=== PATIENT | male | born 1940 | race Caucasian/White ===

== ENCOUNTER 2016-04-30 22:24 | Observation (INO) | payer OTHER ==
[~2016-04-30] VITALS: Ht 193 cm; Wt 126.3 kg
[~2016-04-30 22:24] MED LIST: ALLO300T80 PO; AMOX1TAB43 PO; ASPI325T45 PO; DICL1GEL28 TOP; FURO40TA3 PO; LISI40TA PO; LORA1TAB13 PO; MAGN200T3 PO; OMEP20CA9 PO; OXYC1TAB3 PO; POLY1POW2 PO; POTA10TA30 PO; SOTA80TA PO
[2016-04-30] MEDS ORDERED: SODIUM CHLORIDE 0.9% 1000ML 1,000 ML IV ONE (22:45)
[2016-04-30 22:54] LABS: BASO % 0.7 %; BASO ABS # 0.06 K/uL (0-0.2); COMPLETE YES; EOS % 2.5 %; HEMATOCRIT 48.8 % (42-52); IG% 0.2 %; LYMPH ABS # 1.37 K/uL (1.2-3.4); MEAN CELL VOLUME 81.9 fL (80-100); MEAN CORPUSCULAR HGB CONC 34.2 g/dl (32-36); MEAN PLATELET VOLUME 9.3 fL (7.4-10.4); MONO % 11.2 %; NEUT % 68.4 %; PLATELET COUNT 239 K/uL (130-400); RED BLOOD COUNT 5.96 M/uL (4.7-6.1); WHITE BLOOD COUNT 8.06 K/uL (4.8-10.8)
[2016-04-30 23:06] LABS: ALT/SGPT 19 U/L (12-78); AST/SGOT 18 U/L (15-37); BLOOD UREA NITROGEN 14 mg/dl (7-18); BUN/CREATININE RATIO 12.6 (10-20); CALCIUM 8.5 mg/dl (8.5-10.1); CHLORIDE 104 mmol/L (98-107)
[2016-04-30 23:07] LABS: CARBON DIOXIDE 28 mmol/L (21-32); GLUCOSE 109 mg/dl (70-99); POTASSIUM 4.7 mmol/L (3.5-5.1); SODIUM 143 mmol/L (136-145)
--- NOTE | 2016-04-30 23:09 | DIAGNOSTIC IMAGING REPORT ---
SINGLE VIEW CHEST CLINICAL HISTORY: Atypical chest pain. FINDINGS: An AP, portable, upright chest radiograph is compared to study dated 02/07/2013. The examination is degraded by portable technique and patient rotation. A 2-lead cardiac AICD is unchanged in position and partially secures the left lower chest. The heart is enlarged and there is atherosclerotic calcification of the thoracic aorta. There is pulmonary vascular congestion. Small pleural effusions are suspected. No pneumothorax is seen. The skeletal structures are osteopenic. The bony thorax is grossly intact. Advanced arthritic change is noted in the left shoulder. IMPRESSION: 1. Cardiomegaly and AICD with evidence of congestive failure. 2. Small pleural effusions. Electronically signed by: Ervin Aguilar M.D. 04/30/2016 11:07 PM
[2016-04-30 23:40] LABS: ALB/GLOB RATIO 1.1 (0.9-2); ALKALINE PHOSPHATASE 133 U/L (45-117); CKMB/CK RATIO 1.7 (0-3.0)
[2016-04-30 23:42] LABS: MAGNESIUM 2.3 mg/dl (1.8-2.4)
[2016-04-30] MEDS ORDERED: METOPROLOL TARTRATE 1 MG/ML VIAL IV STA (23:57)
[2016-05-01] VITALS (11 sets, daily range): BP systolic 115–151; BP diastolic 66–89; PULSE 61–75; TEMP 36.7–37.4; O2SAT 93–97; Ht 193 cm; Wt 126.3 kg
[2016-05-01 00:40] LABS: LYME DISEASE AB IGG POS (NEG)
[2016-05-01 00:42] LABS: LYME DISEASE AB IGM NEG (NEG)
[2016-05-01 01:43] LABS: PARTIAL THROMBOPLASTIN RATIO 1.1
[2016-05-01] MEDS ORDERED: SOTALOL HCL 80 MG TAB PO STA (01:56)
[2016-05-01] MEDS ORDERED: HYDROmorphone INJ 1 MG/ML SYR IV PRN (02:00)
[2016-05-01] MEDS ORDERED: PROMETHAZINE HCL INJ 12.5 MG in SODIUM CHLORIDE 0.9% 50ML 50 ML IV PRN (02:00)
[2016-05-01] MEDS ORDERED: ASPIRIN 325 MG ECTAB PO PRN (02:00)
[2016-05-01] MEDS ORDERED: NITROGLYCERIN 0.4 MG SL PER TAB CHARGE SL PRN (02:00)
[2016-05-01] MEDS ORDERED: OXYCODONE HCL IR 5 MG TAB (IMMEDIATE RELEASE) PO PRN (02:00)
[2016-05-01] MEDS ORDERED: ACETAMINOPHEN 325 MG TAB PO PRN (02:00)
[2016-05-01] MEDS ORDERED: FUROSEMIDE INJ 20 MG in SYRINGE 0 ML IV STA (02:37)
--- NOTE | 2016-05-01 03:44 | EMERGENCY ROOM VISIT NOTE ---
History First contact with patient: 22:27 Chief Complaint: CARDIAC ASSESSMENT Stated Complaint: ICD DISCHARGE Nursing Triage Summary: Patient states he was at home sitting on edge of bed and his defibrillator shocked 4 times in 30 min. Denies chest pain and SOB. History of Present Illness The patient is a 76 year old male who presents to the Emergency Room with complaints of multiple episodes of defibrillator discharge over the past one hour. The patient states that he had four distinct episodes of defibrillation at home. The patient does report having a mild strange sensation in his jaw just prior to the defibrillation. He was seated at his table reading a book at the time of the events. The patient arrives via ambulance where he had at least 2 runs of 9 beats nonsustained V. tach. The patient does not report recent illness. He is without chest pain or shortness of breath. He typically follows with [facility] cardiology in [place] (Dr Villareal), and will have occasional defibrillation at home. He has not had an event in a few months, and does not recall having this many episodes in a short period. Review of Systems More than 10 systems were reviewed and otherwise negative with the exception of history of present illness. Past Medical/Surgical History Medical Problems: (1) Acute urinary tract infection (2) AICD (automatic cardioverter/defibrillator) present (3) Anxiety (4) BPH (benign prostatic hypertrophy) (5) Dyslipidemia (6) GERD (gastroesophageal reflux disease) (7) Gout (8) HTN (hypertension) (9) ICD (implantable cardioverter-defibrillator) discharge (10) Idiopathic cardiomyopathy (11) Nonobstructive coronary atherosclerosis (12) PVT (paroxysmal ventricular tachycardia) (13) Sepsis (14) Sleep apnea Surgical Problems: (1) H/o CT guided needle biopsy (2) History of implantable cardioverter-defibrillator (ICD) placement (3) S/P appendectomy (4) S/p EGD (5) S/P laparoscopic cholecystectomy Family History FH: cancer FATHER Social History Smoking Status: Never Smoker Alcohol Use: none Drug Use: none Marital Status: single Housing Status: lives alone Occupation Status: retired Current/Historical Medications Scheduled Allopurinol (Zyloprim), 150 MG PO BID Lisinopril (Zestril), 20 MG PO BID Magnesium (Magnesium), 100 MG PO BID Omeprazole (Prilosec), 10 MG PO BID Polyethylene Glycol 3350 (Bulk (Polyethylene Glycol 3350), 1 TBS PO DAILY Potassium Chloride (Potassium Chloride Cr), 10 MEQ PO DAILY Sotalol Hcl (Sotalol Hcl), 80 MG PO QID Scheduled PRN Aspirin (Aspirin), 650 MG PO QID PRN for Shoulder Pain Lorazepam (Lorazepam), 1 MG PO Q8 PRN for Anxiety Oxycodone Immediate Rel Tab (Roxicodone Ir), 5 MG PO Q4H PRN for Pain Allergies Coded Allergies: Amiodarone (Verified Allergy, Intermediate, "IODINE OVERDOSE SYMPTOMS, 04/30) Physical Exam Vital Signs Date Time Temp Pulse Resp B/P Pulse Ox O2 Delivery O2 Flow Rate FiO2 05/01/16 00:30 75 23 138/86 95 Room Air 05/01/16 00:03 74 138/88 04/30/16 23:17 75 04/30/16 23:16 79 04/30/16 23:14 135 04/30/16 23:05 77 04/30/16 22:54 81 16 156/88 95 Room Air 04/30/16 22:47 124 04/30/16 22:35 96 Room Air 04/30/16 22:32 81 04/30/16 22:31 Room Air 04/30/16 22:29 37.2 82 18 154/83 95 Room Air Pain Rating (0-10): 0 Physical Exam VITALS: Vitals are noted on the nurse's note and reviewed by myself. Vital signs stable. GENERAL: Elderly-appearing male who is very hard of hearing. He appears comfortable in his emergency Department bed. HEAD: Normocephalic atraumatic. HEART: Regular rate and rhythm without murmurs gallops or rubs. LUNGS: Clear to auscultation bilaterally without wheezes, rales or rhonchi. No retractions or accessory muscle use. MUSCULOSKELETAL: No muscle atrophy, erythema, or edema noted. NEURO: Patient was alert and oriented to person place and time. CN II through XII grossly intact. Medical Decision & Procedures ER Provider Diagnostic Interpretation: SINGLE VIEW CHEST CLINICAL HISTORY: Atypical chest pain. FINDINGS: An AP, portable, upright chest radiograph is compared to study dated 02/07/2013. The examination is degraded by portable technique and patient rotation. A 2-lead cardiac AICD is unchanged in position and partially secures the left lower chest. The heart is enlarged and there is atherosclerotic calcification of the thoracic aorta. There is pulmonary vascular congestion. Small pleural effusions are suspected. No pneumothorax is seen. The skeletal structures are osteopenic. The bony thorax is grossly intact. Advanced arthritic change is noted in the left shoulder. IMPRESSION: 1. Cardiomegaly and AICD with evidence of congestive failure. 2. Small pleural effusions. Laboratory Results 04/30/16 22:12 Red Blood Count 5.96, Mean Corpuscular Volume 81.9, Mean Corpuscular Hemoglobin 28.0, Mean Corpuscular Hemoglobin Concent 34.2, Mean Platelet Volume 9.3, Neutrophils (%) (Auto) 68.4, Lymphocytes (%) (Auto) 17.0, Monocytes (%) (Auto) 11.2, Eosinophils (%) (Auto) 2.5, Basophils (%) (Auto) 0.7, Neutrophils # (Auto ) 5.51, Lymphocytes # (Auto) 1.37, Monocytes # (Auto) 0.90, Eosinophils # (Auto ) 0.20, Basophils # (Auto) 0.06 04/30/16 22:12 Test 04/30/16 22:12 04/30/16 23:52 White Blood Count 8.06 K/uL (4.8-10.8) Red Blood Count 5.96 M/uL (4.7-6.1) Hemoglobin 16.7 g/dL (14.0-18.0) Hematocrit 48.8 % (42-52) Mean Corpuscular Volume 81.9 fL (80-100) Mean Corpuscular Hemoglobin 28.0 pg (25-34) Mean Corpuscular Hemoglobin Concent 34.2 g/dl (32-36) Platelet Count 239 K/uL (130-400) Mean Platelet Volume 9.3 fL (7.4-10.4) Neutrophils (%) (Auto) 68.4 % Lymphocytes (%) (Auto) 17.0 % Monocytes (%) (Auto) 11.2 % Eosinophils (%) (Auto) 2.5 % Basophils (%) (Auto) 0.7 % Neutrophils # (Auto) 5.51 K/uL (1.4-6.5) Lymphocytes # (Auto) 1.37 K/uL (1.2-3.4) Monocytes # (Auto) 0.90 K/uL (0.11-0.59) Eosinophils # (Auto) 0.20 K/uL (0-0.5) Basophils # (Auto) 0.06 K/uL (0-0.2) RDW Standard Deviation 47.6 fL (36.4-46.3) RDW Coefficient of Variation 15.9 % (11.5-14.5) Immature Granulocyte % (Auto) 0.2 % Immature Granulocyte # (Auto) 0.02 K/uL (0.00-0.02) Anion Gap 11.0 mmol/L (3-11) Est Creatinine Clear Calc Drug Dose 83.1 ml/min Estimated GFR () 75.7 Estimated GFR (Non- 65.3 BUN/Creatinine Ratio 12.6 (10-20) Calcium Level 8.5 mg/dl (8.5-10.1) Magnesium Level 2.3 mg/dl (1.8-2.4) Total Bilirubin 0.6 mg/dl (0.2-1) Aspartate Amino Transf (AST/SGOT) 18 U/L (15-37) Alanine Aminotransferase (ALT/SGPT) 19 U/L (12-78) Alkaline Phosphatase 133 U/L (45-117) Total Creatine Kinase 76 U/L (39-308) Creatine Kinase MB 1.3 ng/ml (0.5-3.6) Creatine Kinase MB Ratio 1.7 (0-3.0) Troponin I < 0.015 ng/ml (0-0.045) Total Protein 7.5 gm/dl (6.4-8.2) Albumin 4.0 gm/dl (3.4-5.0) Globulin 3.5 gm/dl (2.5-4.0) Albumin/Globulin Ratio 1.1 (0.9-2) Thyroid Stimulating Hormone (TSH) 3.550 uIu/ml (0.300-4.500) Chemistry Specimen Hemolysis Activated Partial Thromboplast Time 29.3 SECONDS (21.0-31.0) Partial Thromboplastin Ratio 1.1 Lyme Disease IgG Antibody POS (NEG) Medications Administered Medications (Trade) Dose Ordered Sig/Floyd Route Start Time Stop Time Status Last Admin Dose Admin Sodium Chloride (Nss 1000ml) 1,000 ml @ 333 mls/hr Q3H1M ONCE IV 04/30/16 22:45 05/01/16 01:45 DC 04/30/16 22:54 333 MLS/HR Metoprolol Tartrate (Lopressor Iv) 5 mg NOW STAT IV 04/30/16 23:57 05/01/16 00:00 DC 05/01/16 00:03 5 MG ED Course Physical exam and history were performed. Nursing notes and EMR were reviewed. Patient appears to have had multiple episodes of different blood or discharge at home. The patient is not well known to the emergency department, and evidently has an extensive headache history with [facility]. The patient was seen immediately upon arrival to the emergency department, and within only a few moments of being on the quality assurance monitor final was found to have multiple runs of nonsustained ventricular tachycardia. Patient was moved to a trauma room as a precaution. The case was discussed with my attending physician, Dr Zeng performing closely involved in patient care. IV access was established and labs were obtained. EKG was performed, which did show a sinus rhythm without ischemia or ectopy at the time of EKG. Portal chest x-ray was obtained and the patient was gently hydrated with normal saline. The patient has an allergy to amiodarone, and there is concern about his dysrhythmic episodes. Because of this we contacted the on-call [facility] aircraft mechanic structures, Dr Hess. Dr. Hess was able to acquire the patient's [facility] history. Evidently the patient has a history of cardiomyopathy with an ejection fraction of 40%. He has had several episodes of nonsustained V. tach in the past, hence his pacemaker defibrillator. Dr. Hess did not immediately recommend additional medication intervention at this time. The patient's blood work is as above and was reviewed. He does not have a significantly elevated white blood cell count, anemia, anemia, or gross electrolyte imbalance. Troponin x1 was negative. Chest x-ray does not show acute process such as pneumonia to explain the patient's symptoms. On the quality assurance monitor final the patient had several runs of ventricular tachycardia, that did spontaneously break without medication. The longest run was [address] Hess did arrive to evaluate the patient here in the department. He was accompanied by the [employer], and they interrogated the pacemaker. Recommendation from Dr. Hess was for observation here in the facility. The case was discussed with Dr. Lopes, [facility] hospitalist, who agreed to bring the patient into the hospital for further evaluation. Please their respective dictations for patient course, plan, and disposition. The chart was completed utilizing [employer] Speech Voice Recognition Software. Grammatical errors, random word insertions, pronoun errors, and incomplete sentences are an occasional consequence of this system due to software limitations, ambient noise, and hardware issues. Any formal questions or concerns about the content, text, or information contained within the body of this dictation should be directly addressed to the provider for clarification. . Medical Decision Differential diagnosis includes, but is not limited to: Myocardial infarction, dysrhythmia, pericarditis, pneumothorax, aortic aneurysm/dissection, DVT/PE, anxiety, GERD, PUD, electrolyte imbalance, thyroid disorder, pneumonia, bronchitis, pancreatitis, and others Impression Primary Impression: ICD (implantable cardioverter-defibrillator) discharge Additional Impression: Nonsustained ventricular tachycardia Departure Information Referrals Ed Garcia D.OLeander (PCP) Patient Instructions A Signature Page, [employer]
[2016-05-01] MEDS ORDERED: IV FLUIDS COMPLETED PRN (04:45)
[2016-05-01 05:16] LABS: BASO % 0.5 %; BASO ABS # 0.04 K/uL (0-0.2); COMPLETE YES; EOS % 1.6 %; HEMATOCRIT 45.6 % (42-52); IG% 0.2 %; LYMPH % 16.1 %; LYMPH ABS # 1.42 K/uL (1.2-3.4); MEAN CELL VOLUME 82.2 fL (80-100); MEAN CORPUSCULAR HEMOGLOBIN 27.9 pg (25-34); MEAN PLATELET VOLUME 9.1 fL (7.4-10.4); MONO % 11.7 %; NEUT % 69.9 %; PLATELET COUNT 203 K/uL (130-400); RED BLOOD COUNT 5.55 M/uL (4.7-6.1); WHITE BLOOD COUNT 8.84 K/uL (4.8-10.8)
[2016-05-01 05:45] LABS: BUN/CREATININE RATIO 14.1 (10-20); CALCIUM 8.2 mg/dl (8.5-10.1); CREATININE 0.89 mg/dl (0.60-1.40); POTASSIUM 3.9 mmol/L (3.5-5.1)
--- NOTE | 2016-05-01 06:53 | HISTORY & PHYSICAL EXAMINATION ---
DATE OF ADMISSION: 05/01/2016 PRIMARY CARE DOCTOR: Dr. Garcia. Hx obtained from px, px friends, and records. Limited history obtained from the patient secondary to hearing impairment. CHIEF COMPLAINT: ICD discharge. HISTORY OF PRESENT ILLNESS: Medical history significant for chronic diastolic heart failure (EF of 55% on 2D echo 2015), history of nonocclusive CAD; history of VT status post ICD placement, hypertension; hyperlipidemia, GERD, hearing loss. Recent confinement last August 2015 for sepsis secondary to urinary tract infection. Last night, the patient was at home sitting on the edge of his bed when he felt his defibrillator shocking 4 times in a span of 30 minutes. He denies chest pain, shortness of breath, admits to some leg swelling. Patient thinks he may have been late taking his scheduled sotalol. As per patient's friends, they are worried about patient drinks a lot of coffee; getting forgetful. Patient brought to the Emergency Room. MEDICAL HISTORY: As above. He sees [facility], Dr. Villareal. Recent visit June 2015. As per outpatient note, the patient continues to have frequent episodes of asymptomatic sustained V-tach. Ablation advisable but not absolutely necessary. Continued medical management for now w/ Sotalol as long as events are well tolerated. Patient prefers not to undergo ablation unless absolutely necessary as per note. Frequent shocks might lead to ablation as per note. SURGERIES: Appendectomy, cholecystectomy, abscess drainage. HOME MEDICATIONS: Include Zyloprim, aspirin, Zestril, lorazepam, magnesium, Prilosec, sotalol. ALLERGIES: AMIODARONE. FAMILY HISTORY: Arthritis, cancer. PERSONAL SOCIAL HISTORY: Nonsmoker, no chronic intake of alcoholic beverages. Retired sanitation engineer. Lives alone. REVIEW OF SYSTEMS: Could not be reliably obtained. PHYSICAL EXAMINATION: VITAL SIGNS: Blood pressure was noted to be 138/86, pulse rate 90 RR 18 T 37 sats 97 on room air. GENERAL: Noted to be obese, very hard of hearing. no respiratory distress. SKIN : normal color HEENT: [place] palpebral conjunctivae. Dry mucosa. NECK: Short neck. LUNGS: Clear to auscultation. HEART: Regular rate and rhythm. ABDOMEN: Some distention, nontender. EXTREMITIES: Minimal LE edema, no tenderness. NEUROLOGIC: No gross focality except for marked hearing impairment. LABORATORY DATA: Hemoglobin was noted to be 16.7, hematocrit 48.8, white cell count was 8.6, and platelets 239. Sodium 140, potassium 4.7, chloride 104, CO2 28, BUN 30, creatinine 1.1, glucose 109. trop 0 IMAGING DATA: Chest x-ray minimal congestion, cardiomegaly, small pleural effusions. EKG rate 80, normal sinus rhythm, Q-waves in the inferior leads, poor R-wave progression. ASSESSMENT: 1. Implantable cardioverter defibrillator shock HX VT sp ICD ? delayed Sotalol intake secondary to possible functional disability versus medication refractory ventricular tachycardia. 2. Chronic diastolic heart failure idiopathic cardiomyopathy as per records improved EF of 55% on recent TTE mild decompensation isela leg swelling a little more than usual as per px mild congestion on CXR Patient prefers not to take maintenance Lasix at home. 3. Hypertension, stable 4. hx non-occlusive CAD as per records 5. hearing impairment PLAN: Observation for now PCU. Facilitate Sotalol. Further management as per Cardiology. Patient has already seen by Dr. Hess at the Emergency Room following ICD interrogation. Lasix one dose for mildly decompensated heart failure. PT, OT eval. Social service RE discharge planning. DVT prophylaxis with Lovenox subQ. Full code. MTDD
[2016-05-01] MEDS: SOTALOL HCL 80 MG TAB PO SCH ×4 (07:05→23:25)
--- NOTE | 2016-05-01 07:40 | CARDIOLOGY CONSULTATION ---
DATE OF CONSULTATION: 05/01/2016 CONSULTATION REQUESTED BY: Leander Ghassan Pond. REASON FOR CONSULTATION: ICD firing. HISTORY OF PRESENT ILLNESS: Mr. Lozada is a very pleasant, yet very cardiovascularly complex 76-year-old gentleman, who is very well known to [facility] electrophysiology service. He presented to [facility] on 04/30/2016 with a report of 4 episodes of ICD firings. The patient states he was in his normal state of health all day without any significant complaints. He normally takes sotalol 4 times a day as directed by electrophysiology, but admits that he missed one dose by a couple of hours today. Later on in the day, he started receiving ICD shocks. He states that prior to the shocks, he did not feel any significant complaints and denied any chest pain, shortness of breath, palpitations, lightheadedness, dizziness or syncope. He states that, if anything, he felt a funny feeling in his jaw/left cheek, which he normally feels before ICD firings. After 4 shocks, he came into the Emergency Department and cardiology was consulted. Currently, he is in the Emergency Room without complaints and states that he feels absolutely fine. He states other than missing his medication by a couple of hours, he has been compliant with all of his other medications and he states that his last ICD firing was several months ago. Of note, the patient has a long history of idiopathic ventricular tachycardia for which he has had an ICD placed. He has been followed closely by electrophysiology. He has documented several episodes of ventricular tachycardia on an almost daily basis, which he normally automatically paces out of, and this has been well documented previously. Unfortunately, today's episodes, he did not pace out of. I was contacted by the ER service as to the patient's state. I then contacted the appropriate pacemaker primary care sales representative, which is [place], and headed them at the bedside upon my arrival, which was within 15 minutes of being called. PAST SURGICAL HISTORY: 1. Cardiac catheterization in 2005 showing mild pressure and 40% narrowing of the RCA; otherwise, no significant obstructive disease. 2. Medtronic ICD placement in 2005 with generator change in 2013. 3. Upper endoscopy. 4. Laparoscopic cholecystectomy. 5. Appendectomy. MEDICAL ILLNESSES: 1. Idiopathic ventricular tachycardia, on chronic sotalol therapy, status post ICD. 2. Nonischemic cardiomyopathy, EF as low as 40%; most recently, 55%-60%. 3. Nonobstructive coronary artery disease. 4. Significantly hard of hearing. 5. Anxiety. 6. Hypertension. 7. GERD. 8. Dyslipidemia. FAMILY HISTORY: Noncontributory. SOCIAL HISTORY: Denies any alcohol, tobacco or recreational drug use. He has friends with him, who state that they are the closest to family that he has. REVIEW OF SYSTEMS: As per HPI. All other review of systems reviewed and negative at this time. ALLERGIES: AMIODARONE WITH A DOCUMENTED REACTION OF WHEEZING. MEDICATIONS AN OUTPATIENT: 1. Aspirin 325 mg daily. 2. Sotalol 80 mg 4 times a day. 3. Lasix 1 tablet daily. 4. Lisinopril 40 mg daily. 5. Potassium chloride 10 mEq daily. 6. Magnesium 100 mg daily. 7. Prilosec daily. 8. Allopurinol daily. PHYSICAL EXAMINATION: VITALS: Temperature 37.2, pulse 74, respiratory rate 12, blood pressure 156/88. GENERAL: Awake, alert, oriented x3, in no acute distress, extremely hard of hearing. HEENT: Normocephalic, atraumatic. Pupils equal, round, and reactive to light and accommodation. Extraocular muscles intact. Anicteric sclerae. Moist mucous membranes. NECK: No JVD, no bruit. CARDIOVASCULAR: Regular. Positive S4. Normal S1 and S2. No S3. No murmurs or rubs. PULMONARY: Clear to auscultation bilaterally. No rales, rhonchi, or wheezing. ABDOMEN: Bowel sounds x4, soft. No rebound, guarding, tenderness. No organomegaly. EXTREMITIES: No clubbing, cyanosis or edema. +2 pedal pulses bilaterally. SKIN: Warm and dry. TEST RESULTS: Most recent echocardiogram in August 2013 was read as, compared to last study available, there has been interval change, normal LV chamber size with moderate concentric LVH, normal LV systolic function without regional wall motion abnormality, EF 55%-60%, mild aortic valve sclerosis without stenosis, mild mitral annular calcification, mild left atrial enlargement, mild enlargement of the ascending aorta. A 12-lead EKG performed in the Emergency Department, independently reviewed at this time, shows normal sinus rhythm. LABORATORY STUDIES OF SIGNIFICANCE: Showed sodium 143, potassium 4.7, BUN 14, creatinine 1.1. TSH of 3.55. Troponin of less than 0.015. CPK of 76. IMPRESSION: 1. Appropriate implantable cardioverter defibrillator firings for sustained ventricular tachycardia. 2. Longstanding history of idioventricular ventricular tachycardia. 3. Nonischemic cardiomyopathy, resolved. Ejection fraction, most recently, 55%-60%. 4. Nonobstructive coronary artery disease. 5. Extremely hard of hearing. RECOMMENDATIONS: It was my pleasure to see Mr. Lozada in consultation today. Given the patient's longstanding history of idiopathic ventricular tachycardia along with his recent appropriate ICD firings, I am not quite sure whether this episode was due to him being late on his sotalol dosing or whether this represents him developing intolerance for his antiarrhythmic. So, at this time, he will be given a dose of IV metoprolol 5 mg x1 now to help reduce his ectopy. There are no electrolyte abnormalities that need to be repleted and he is not prerenal. So, no IV fluids are necessary. We will repeat an echocardiogram in the a.m., and he will most likely need reevaluation with electrophysiology to likely evaluate for ventricular tachycardia ablation. Otherwise, he will be maintained on his outpatient sotalol dosage. MTDD
[2016-05-01 08:44] LABS: PROTHROMBIN TIME (PATIENT) 10.9 SECONDS (9.0-12.0)
[2016-05-01] MEDS: MAGNESIUM OXIDE 400 MG TAB PO SCH ×2 (08:49→20:55)
[2016-05-01] MEDS: PANTOprazole SOD 40 MG TAB PO SCH ×2 (08:49→20:56)
[2016-05-01] MEDS: POTASSIUM CHLORIDE 10 MEQ TABCR PO SCH (08:49)
[2016-05-01] MEDS: ALLOPURINOL 300 MG TAB PO SCH ×2 (08:49→20:55)
[2016-05-01] MEDS: LISINOPRIL 20 MG TAB PO SCH ×2 (08:49→20:57)
[2016-05-01] MEDS: POLYETHYLENE (MIRALAX) 17 GM PACK PO SCH ×2 (08:49→23:25)
[2016-05-01] MEDS ORDERED: PERFLUTREN LIPID MICROSPHERE (DEFINITY) IV ONE (09:30)
[2016-05-01] MEDS: ENOXAPARIN 40 MG/0.4 ML SYR SC SCH (10:00)
[2016-05-01] MEDS ORDERED: SOTALOL HCL 80 MG TAB PO ONE (11:15)
--- NOTE | 2016-05-01 12:59 | Cardiology Follow-Up ---
Subjective Subjective Date of Service: May 01, 2016. Pt evaluation today including: conversation w/ patient, physical exam, chart review, lab review, review of studies, review of inpatient medication list Additional Details: Pt seen and examined, states that he continues to feel well. No further ICD firings overnight. Denies cp, sob, palpitations, lightheadedness or dizziness. Tele reviewed: sinus rhythm with multiple, frequent salvos of NSVT, occasional pacing. Problem List Medical Problems: (1) Altered mental status Status: Acute (2) Fever Status: Acute (3) Nonsustained ventricular tachycardia Status: Acute Review of Systems Respiratory: No cough, No dyspnea at rest, No dyspnea on exertion, No hemoptysis, No problem reported, No see HPI, No shortness of breath, No sputum, No wheezing Cardiac: No PND, No chest pain, No claudication, No edema, No orthopnea, No palpitations, No problem reported, No see HPI Objective Vital Signs Last Vital Signs Documentation Date Time Temp Pulse Resp B/P Pulse Ox O2 Delivery O2 Flow Rate FiO2 05/01/16 12:24 36.8 67 18 146/89 95 Room Air Physical Exam: General Appearance: WD/WN, no apparent distress, + pertinent finding (very hard of hearing) Eyes: bilateral eyes EOMI, bilateral eyes PERRL, bilateral eyes normal inspection ENT: normal ENT inspection, hearing grossly normal, pharynx normal Neck: supple, no adenopathy, thyroid normal, no JVD, no carotid bruits, trachea midline Respiratory/Chest: chest non-tender, lungs clear, normal breath sounds, no respiratory distress Cardiovascular: regular rate, rhythm, no gallop, no murmur, + gallop/S4 Abdomen: normal bowel sounds, non tender, soft, no organomegaly, + pertinent finding Extremities: normal inspection, no pedal edema, no calf tenderness Neurologic/Psychiatric: medical office asst II-XII nml as tested, no motor/sensory deficits, alert, normal mood/affect, oriented x 3 Skin: normal color, warm/dry, no rash Lymphatic: no adenopathy Assessment and Plan 1. ICD firing appropriate for sustained V tach pt with long history pt with daily episodes of NSVT usually able to pace out of rhythm did receive 4 ICD firings, unclear why ATP was unsuccessful ?medication tolerance no sign of active ischemia discussed case with patient's primary second crusher, Dr. Villareal, who is very familiar with patient it was agreed that will attempt to further uptitrate sotalol as QTc allows and add beta chayo on top QTC borderline now, will give extra 40mg sotalol now, repeat ECG will likely add toprol xl 25mg later this pm cont to monitor on tele overnight
--- NOTE | 2016-05-01 13:27 | ECHOCARDIOGRAM REPORT ---
*NOTICE TO RECEIVING REPUBLICAN AGENCY This information is strictly Confidential and protected under [place] law. [place] law prohibits you from making any further disclosure of this information unless further disclosure is expressly permitted by the written consent of the person to whom it pertains or is authorized by law. A general authorization for the release of medical or other information is not sufficient for this purpose. Hospital accepts no responsibility if the information is made available to any other person, INCLUDING THE PATIENT. Interpretation Summary * Name: LAURA NASCIMENTO Study Date: 05/01/2016 09:05 AM BP: 134/79 mmHg * Patient Location: [facility]\S\N288\S\2 HR: 75 * : 1940 (M/d/yyyy) Gender: Male Height: 76 in * Age: 76 yrs Ethnicity: CA Weight: 271 lb * Ordering Physician: Praful Hess * Referring Physician: Self, Referred * Performed By: Rosalba Soto RCS * * Reason For Study: V-FIB * BSA: 2.5 m2 * -- Conclusions -- * Normal LV chamber size with mild concentric LVH. * Normal LV systolic function, EF 60-65%. * No segmental left ventricular wall motion abnormalities are noted. * Grade II diastolic dysfunction. * Aortic valve sclerosis mild, without significant aortic valvular stenosis. * Severe left atrial enlargment. Procedure Details * A complete two-dimensional transthoracic echocardiogram was performed (2D, M-mode, Doppler and color flow Doppler). * There were technical limitations due to patient'sbody habitus * A contrast injection of Definity was performed to improve assessment of LV function. * Contrast was injected into an intravenous site in the left arm. * One vial of Definity ultrasound contrast was diluted in normal saline to a total volume of 10 ml. A total of '2' ml of solution was administered during imaging. * Lot # [id number] of Definity utilized for procedure. * Expiration date . * The attending nurse who injected the contrast agent was Divya Quintana RN. Left Ventricle * The left ventricle is normal in size. * There is mild concentric left ventricular hypertrophy. * Left ventricular systolic function is normal. * No segmental left ventricular wall motion abnormalities are noted. * Ejection Fraction = 60-65%. * The left ventricular wall motion is normal. Right Ventricle * The right ventricular cavity size is normal (basal dimension <4.2 cm in right ventricular apical 4-chamber view). * There is a pacemaker lead in the right ventricle. * The right ventricular systolic function is normal as assessed by tricuspid annular plane systolic excursion (TAPSE) (normal >1.5 cm). Atria * The left atrium is severely dilated. * Right atrium not well visualized. * No ASD detected; PFO is not assessed. Mitral Valve * The mitral valve is normal in structure and function. Tricuspid Valve * The tricuspid valve is normal in structure and function. Aortic Valve * The aortic valve is not well visualized. * Aortic valve sclerosis mild, without significant aortic valvular stenosis. * There is no significant aortic regurgitation. Pulmonic Valve * The pulmonary valve is not well seen, but the Doppler examination is normal without significant regurgitation or stenosis. Great Vessels * Mild aortic root dilatation. Pericardium/Pleural * There is no pericardial effusion. Left Ventricular Diastolic Function * Diastolic dysfunction, Grade II (pseudonormalization pattern). MMode 2D Measurements and Calculations IVSd 1.2 cm IVSs 1.4 cm LVIDd 5.4 cm LVIDs 3.9 cm LVPWd 1.2 cm LVPWs 1.5 cm IVS/LVPW 0.96 FS 27.5 % EDV(Teich) 141.1 ml ESV(Teich) 66.4 ml EF(Teich) 53.0 % EDV(cubed) 157.2 ml ESV(cubed) 59.9 ml EF(cubed) 61.9 % % IVS thick 22.8 % % LVPW thick 23.4 % LV mass(C)d 257.5 grams LV mass(C)dI 102.1 grams/m\S\2 LV mass(C)s 213.7 grams LV mass(C)sI 84.8 grams/m\S\2 CO(Teich) 5.2 l/min CI(Teich) 2.1 l/min/m\S\2 SV(Teich) 74.8 ml SI(Teich) 29.7 ml/m\S\2 CO(cubed) 6.8 l/min CI(cubed) 2.7 l/min/m\S\2 SV(cubed) 97.3 ml SI(cubed) 38.6 ml/m\S\2 Ao root diam 4.3 cm Ao root area 14.3 cm\S\2 ACS 1.9 cm LA dimension 5.3 cm LA/Ao 1.2 LVAd ap4 55.8 cm\S\2 LVLd ap4 10.9 cm EDV(MOD-sp4) 236.0 ml LVAs ap4 33.7 cm\S\2 LVLs ap4 9.2 cm ESV(MOD-sp4) 109.0 ml EF(MOD-sp4) 53.8 % LVAd ap2 37.6 cm\S\2 LVLd ap2 9.6 cm EDV(MOD-sp2) 127.0 ml LVAs ap2 25.2 cm\S\2 LVLs ap2 8.4 cm ESV(MOD-sp2) 65.0 ml EF(MOD-sp2) 48.8 % CO(MOD-sp4) 8.9 l/min CI(MOD-sp4) 3.5 l/min/m\S\2 SV(MOD-sp4) 127.0 ml SI(MOD-sp4) 50.4 ml/m\S\2 CO(MOD-sp2) 4.3 l/min CI(MOD-sp2) 1.7 l/min/m\S\2 SV(MOD-sp2) 62.0 ml SI(MOD-sp2) 24.6 ml/m\S\2 Doppler Measurements and Calculations MV E max jean carlos 84.1 cm/sec MV A max jean carlos 70.2 cm/sec MV E/A 1.2 MV P1/2t max jean carlos 80.1 cm/sec MV P1/2t 113.3 msec MVA(P1/2t) 1.9 cm\S\2 MV dec slope 207.0 cm/sec\S\2 MV dec time 0.27 sec Ao V2 max 127.2 cm/sec Ao max PG 6.5 mmHg AI max jean carlos 369.2 cm/sec AI max PG 54.5 mmHg AI dec slope 101.0 cm/sec\S\2 AI P1/2t 1070.2 msec PA V2 max 98.8 cm/sec PA max PG 3.9 mmHg
[2016-05-01] MEDS ORDERED: METOPROLOL SUCC 25MG EXT REL TAB PO ONE (14:06)
--- NOTE | 2016-05-01 14:06 | Progress Note ---
Progress Note Qtc prolonged will hold off increasing sotalol add toprol xl 25mg daily instead cont to monitor
--- NOTE | 2016-05-01 21:51 | Progress Note ---
Medicine Progress Note Date & Time of Visit: May 01, 2016 at 15:30 . Subjective Admitted last night after several discharged of AICD. Feels very tired today. No further AICD discharged. No chest pain or SOB. No nausea or vomiting. . Objective Last 8 Hrs Date Time Temp Pulse Resp B/P Pulse Ox O2 Delivery O2 Flow Rate FiO2 05/01/16 20:54 68 115/66 94 Room Air 05/01/16 19:02 36.7 61 20 122/70 95 Room Air 05/01/16 18:33 71 115/70 93 Room Air 05/01/16 16:00 95 Room Air 05/01/16 15:18 37.4 71 18 140/80 95 Room Air Physical Exam: General- no distress Neck- no JVD Lungs- clear Heart- RRR Abdomen- + BS, soft, nontender Extremities- no pretibial edema or calf tenderness Neuro- alert . Laboratory Results: Last 24 Hours Test 04/30/16 22:12 04/30/16 23:52 05/01/16 04:47 05/01/16 08:21 White Blood Count 8.06 K/uL 8.84 K/uL Red Blood Count 5.96 M/uL 5.55 M/uL Hemoglobin 16.7 g/dL 15.5 g/dL Hematocrit 48.8 % 45.6 % Mean Corpuscular Volume 81.9 fL 82.2 fL Mean Corpuscular Hemoglobin 28.0 pg 27.9 pg Mean Corpuscular Hemoglobin Concent 34.2 g/dl 34.0 g/dl Platelet Count 239 K/uL 203 K/uL Mean Platelet Volume 9.3 fL 9.1 fL Neutrophils (%) (Auto) 68.4 % 69.9 % Lymphocytes (%) (Auto) 17.0 % 16.1 % Monocytes (%) (Auto) 11.2 % 11.7 % Eosinophils (%) (Auto) 2.5 % 1.6 % Basophils (%) (Auto) 0.7 % 0.5 % Neutrophils # (Auto) 5.51 K/uL 6.19 K/uL Lymphocytes # (Auto) 1.37 K/uL 1.42 K/uL Monocytes # (Auto) 0.90 K/uL 1.03 K/uL Eosinophils # (Auto) 0.20 K/uL 0.14 K/uL Basophils # (Auto) 0.06 K/uL 0.04 K/uL RDW Standard Deviation 47.6 fL 47.8 fL RDW Coefficient of Variation 15.9 % 15.8 % Immature Granulocyte % (Auto) 0.2 % 0.2 % Immature Granulocyte # (Auto) 0.02 K/uL 0.02 K/uL Sodium Level 143 mmol/L 140 mmol/L Potassium Level 4.7 mmol/L 3.9 mmol/L Chloride Level 104 mmol/L 106 mmol/L Carbon Dioxide Level 28 mmol/L 26 mmol/L Anion Gap 11.0 mmol/L 8.0 mmol/L Blood Urea Nitrogen 14 mg/dl 13 mg/dl Creatinine 1.10 mg/dl 0.89 mg/dl Est Creatinine Clear Calc Drug Dose 83.1 ml/min 104.8 ml/min Estimated GFR () 75.7 96.9 Estimated GFR (Non- 65.3 83.6 BUN/Creatinine Ratio 12.6 14.1 Random Glucose 109 mg/dl 92 mg/dl Calcium Level 8.5 mg/dl 8.2 mg/dl Magnesium Level 2.3 mg/dl Total Bilirubin 0.6 mg/dl Aspartate Amino Transf (AST/SGOT) 18 U/L Alanine Aminotransferase (ALT/SGPT) 19 U/L Alkaline Phosphatase 133 U/L Total Creatine Kinase 76 U/L Creatine Kinase MB 1.3 ng/ml Creatine Kinase MB Ratio 1.7 Troponin I < 0.015 ng/ml Total Protein 7.5 gm/dl Albumin 4.0 gm/dl Globulin 3.5 gm/dl Albumin/Globulin Ratio 1.1 Thyroid Stimulating Hormone (TSH) 3.550 uIu/ml Chemistry Specimen Hemolysis Activated Partial Thromboplast Time 29.3 SECONDS Partial Thromboplastin Ratio 1.1 Lyme Disease IgG Antibody POS Lyme Disease IgM Antibody NEG Prothrombin Time 10.9 SECONDS Prothromb Time International Ratio 1.0 Assessment & Plan VENTRICULAR TACHYCARDIA / AICD DISCHARGES 4 discharges of AICD at home. Lytes, TSH OK. Cardiology consulted. Device interrogated. Anti-arrhythmic meds being adjusted- sotalol dose adjusted and metoprolol added. Continue telemetry. CAD History of nonocclusive CAD. No anginal symptoms. CHF Chest x-ray showed pulmonary vascular congestion. Echo showed moderate LVH, normal LV systolic function, grade II diastolic dysfunction. O2 sats OK on RA. Lungs clear to auscultation. No dyspnea. Patient prefers not to take diuretics. VTE PROPHYLAXIS SQ enoxaparin. Ambulate. DISPOSITION Expected discharge to home. Internal Medicine follow-up with Dr. Garcia. . Current Inpatient Medications: Current Inpatient Medications Medications (Trade) Dose Ordered Sig/Floyd Route Start Time Stop Time Status Last Admin Dose Admin Sotalol HCl (Betapace Tab) 80 mg Q6H PO 05/01/16 06:00 05/31/16 05:59 05/01/16 18:35 80 MG Enoxaparin Sodium (Lovenox Inj) 40 mg DAILY@0900 SC 05/01/16 09:00 05/31/16 08:59 05/01/16 10:00 40 MG Acetaminophen (Tylenol Tab) 650 mg Q4H PRN PO 05/01/16 02:00 05/31/16 01:59 Nitroglycerin (Nitrostat Tab) 0.4 mg UD PRN SL 05/01/16 02:00 05/31/16 01:59 Allopurinol (Zyloprim Tab) 150 mg BID PO 05/01/16 09:00 05/31/16 08:59 05/01/16 20:55 150 MG Aspirin (Ecotrin Tab) 650 mg QID PRN PO 05/01/16 02:00 05/31/16 01:59 Lisinopril (Zestril Tab) 20 mg BID PO 05/01/16 09:00 05/31/16 08:59 05/01/16 20:57 20 MG Lorazepam (Ativan Tab) 1 mg Q8 PRN PO 05/01/16 02:00 05/31/16 01:59 Oxycodone HCl (Roxicodone Immediate Rel Tab) 5 mg Q4H PRN PO 05/01/16 02:00 05/15/16 01:59 Magnesium Oxide (Mag-Ox Tab) 200 mg BID PO 05/01/16 09:00 05/31/16 08:59 05/01/16 20:55 200 MG Pantoprazole Sodium (Protonix Tab) 40 mg BID PO 05/01/16 09:00 05/31/16 08:59 05/01/16 20:56 40 MG Potassium Chloride (Klor-Con M10) 10 meq DAILY PO 05/01/16 09:00 05/31/16 08:59 05/01/16 08:49 10 MEQ Polyethylene (Miralax Powder Packet) 17 gm DAILY PO 05/01/16 09:00 05/31/16 08:59 Hydromorphone HCl 0.5 mg 0.5 mg Q3H PRN IV 05/01/16 02:00 05/15/16 01:59 Promethazine HCl/ Sodium Chloride (Phenergan Inj/ Nss 50ml) 50.5 ml @ 204 mls/hr Q6H PRN IV 05/01/16 02:00 05/31/16 01:59 Miscellaneous (Iv Fluids Completed) 1 ea PRN PRN N/A 05/01/16 04:45 05/01/17 04:44 Metoprolol Succinate (Toprol Xl Tab) 25 mg QAM PO 05/02/16 09:00 06/01/16 08:59
[2016-05-02] VITALS (7 sets, daily range): BP systolic 111–157; BP diastolic 64–94; PULSE 59–87; TEMP 36.6–37.2; O2SAT 93–96
[2016-05-02] MEDS: LORAZEPAM 1 MG TAB PO PRN ×2 (00:50→22:09)
[2016-05-02] MEDS ORDERED: METOPROLOL SUCC 25MG EXT REL TAB PO ONE ×2 (04:56→09:33)
[2016-05-02 06:19] LABS: BUN/CREATININE RATIO 12.8 (10-20); CALCIUM 8.7 mg/dl (8.5-10.1); POTASSIUM 4.1 mmol/L (3.5-5.1)
[2016-05-02] MEDS: SOTALOL HCL 80 MG TAB PO SCH ×3 (06:24→17:32)
[2016-05-02] MEDS: POTASSIUM CHLORIDE 10 MEQ TABCR PO SCH (08:35)
[2016-05-02] MEDS: PANTOprazole SOD 40 MG TAB PO SCH ×2 (08:35→21:14)
[2016-05-02] MEDS: ALLOPURINOL 300 MG TAB PO SCH ×2 (08:35→21:14)
[2016-05-02] MEDS: LISINOPRIL 20 MG TAB PO SCH ×2 (08:35→21:15)
[2016-05-02] MEDS: MAGNESIUM OXIDE 400 MG TAB PO SCH ×2 (08:35→21:16)
[2016-05-02] MEDS: ENOXAPARIN 40 MG/0.4 ML SYR SC SCH (08:36)
[2016-05-02] MEDS ORDERED: METOPROLOL SUCC 25MG EXT REL TAB PO SCH (09:00)
--- NOTE | 2016-05-02 10:33 | Cardiology Follow-Up ---
Subjective Subjective Date of Service: May 02, 2016. Pt evaluation today including: conversation w/ patient, physical exam, chart review, lab review, review of studies, review of inpatient medication list Additional Details: Pt seen and examined, a little anxious this AM, being short with staff. Continues to deny chest pain, sob, palpitations, lightheadedness or dizziness. Tele reviewed: sinus rhythm with continued runs of NSVT, no ICD firings. Problem List Medical Problems: (1) Altered mental status Status: Acute (2) Fever Status: Acute (3) Nonsustained ventricular tachycardia Status: Acute Review of Systems Respiratory: No cough, No dyspnea at rest, No dyspnea on exertion, No hemoptysis, No problem reported, No see HPI, No shortness of breath, No sputum, No wheezing Cardiac: No PND, No chest pain, No claudication, No edema, No orthopnea, No palpitations, No problem reported, No see HPI Objective Vital Signs Last Vital Signs Documentation Date Time Temp Pulse Resp B/P Pulse Ox O2 Delivery O2 Flow Rate FiO2 05/02/16 08:00 Room Air 05/02/16 07:12 36.6 59 20 157/94 96 Physical Exam: General Appearance: WD/WN, no apparent distress, + pertinent finding (very hard of hearing) Eyes: bilateral eyes EOMI, bilateral eyes PERRL, bilateral eyes normal inspection ENT: normal ENT inspection, hearing grossly normal, pharynx normal Neck: supple, no adenopathy, thyroid normal, no JVD, no carotid bruits, trachea midline Respiratory/Chest: chest non-tender, lungs clear, normal breath sounds, no respiratory distress Cardiovascular: regular rate, rhythm, no gallop, no murmur, + gallop/S4 Abdomen: normal bowel sounds, non tender, soft, no organomegaly, + pertinent finding Extremities: normal inspection, no pedal edema, no calf tenderness 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
[2016-05-02] MEDS: POLYETHYLENE (MIRALAX) 17 GM PACK PO SCH (19:55)
--- NOTE | 2016-05-02 21:45 | Progress Note ---
Medicine Progress Note Date & Time of Visit: May 02, 2016 at ~ 19:00 . Subjective Better today. Having frequent ventricular arrhythmias, but no further ICD discharged. No anginal symptoms. No SOB. No N/V. . Objective Last 8 Hrs Date Time Temp Pulse Resp B/P Pulse Ox O2 Delivery O2 Flow Rate FiO2 05/02/16 20:00 Room Air 05/02/16 19:48 36.7 76 18 132/83 93 05/02/16 15:57 Room Air 05/02/16 15:08 37.2 66 20 111/64 95 Room Air Physical Exam: General- no distress Neck- no JVD Lungs- clear Heart- RRR with frequent ectopy Abdomen- + BS, soft, nontender Extremities- no pretibial edema or calf tenderness Neuro- alert . Laboratory Results: Last 24 Hours Test 05/02/16 05:00 05/02/16 05:12 Sodium Level 139 mmol/L Potassium Level 4.1 mmol/L Chloride Level 105 mmol/L Carbon Dioxide Level 26 mmol/L Anion Gap 8.0 mmol/L Blood Urea Nitrogen 13 mg/dl Creatinine 1.00 mg/dl Est Creatinine Clear Calc Drug Dose 92.7 ml/min Estimated GFR () 85.0 Estimated GFR (Non- 73.3 BUN/Creatinine Ratio 12.8 Random Glucose 97 mg/dl Calcium Level 8.7 mg/dl Magnesium Level 2.4 mg/dl Assessment & Plan VENTRICULAR TACHYCARDIA / AICD DISCHARGES 4 discharges of AICD at home. Lytes, TSH OK. Cardiology consulted. Device interrogated. Metoprolol initiated. Continue sotalol. Continue telemetry. CAD History of nonocclusive CAD. No anginal symptoms. CHF Chest x-ray showed pulmonary vascular congestion. Echo showed moderate LVH, normal LV systolic function, grade II diastolic dysfunction. O2 sats OK on RA. Lungs clear to auscultation. No dyspnea. Patient prefers not to take diuretics. VTE PROPHYLAXIS SQ enoxaparin. Ambulate. DISPOSITION Expected discharge to home. Internal Medicine follow-up with Dr. Garcia. . Current Inpatient Medications: Current Inpatient Medications Medications (Trade) Dose Ordered Sig/Floyd Route Start Time Stop Time Status Last Admin Dose Admin Sotalol HCl (Betapace Tab) 80 mg Q6H PO 05/01/16 06:00 05/31/16 05:59 05/02/16 17:32 80 MG Enoxaparin Sodium (Lovenox Inj) 40 mg DAILY@0900 SC 05/01/16 09:00 05/31/16 08:59 05/02/16 08:36 40 MG Acetaminophen (Tylenol Tab) 650 mg Q4H PRN PO 05/01/16 02:00 05/31/16 01:59 Nitroglycerin (Nitrostat Tab) 0.4 mg UD PRN SL 05/01/16 02:00 05/31/16 01:59 Allopurinol (Zyloprim Tab) 150 mg BID PO 05/01/16 09:00 05/31/16 08:59 05/02/16 21:14 150 MG Aspirin (Ecotrin Tab) 650 mg QID PRN PO 05/01/16 02:00 05/31/16 01:59 Lisinopril (Zestril Tab) 20 mg BID PO 05/01/16 09:00 05/31/16 08:59 05/02/16 21:15 20 MG Lorazepam (Ativan Tab) 1 mg Q8 PRN PO 05/01/16 02:00 05/31/16 01:59 05/02/16 00:50 1 MG Oxycodone HCl (Roxicodone Immediate Rel Tab) 5 mg Q4H PRN PO 05/01/16 02:00 05/15/16 01:59 Magnesium Oxide (Mag-Ox Tab) 200 mg BID PO 05/01/16 09:00 05/31/16 08:59 05/02/16 21:16 200 MG Pantoprazole Sodium (Protonix Tab) 40 mg BID PO 05/01/16 09:00 05/31/16 08:59 05/02/16 21:14 40 MG Potassium Chloride (Klor-Con M10) 10 meq DAILY PO 05/01/16 09:00 05/31/16 08:59 05/02/16 08:35 10 MEQ Polyethylene (Miralax Powder Packet) 17 gm DAILY PO 05/01/16 09:00 05/31/16 08:59 05/02/16 19:55 17 GM Hydromorphone HCl 0.5 mg 0.5 mg Q3H PRN IV 05/01/16 02:00 05/15/16 01:59 Promethazine HCl/ Sodium Chloride (Phenergan Inj/ Nss 50ml) 50.5 ml @ 204 mls/hr Q6H PRN IV 05/01/16 02:00 05/31/16 01:59 Miscellaneous (Iv Fluids Completed) 1 ea PRN PRN N/A 05/01/16 04:45 05/01/17 04:44 Metoprolol Succinate (Toprol Xl Tab) 25 mg QAM PO 05/03/16 09:00 06/01/16 08:59
[2016-05-03 00:30] VITALS: BP 132/80; PULSE 71; TEMP 36.6; O2SAT 95
[2016-05-03 04:53] VITALS: BP 111/67; PULSE 62; TEMP 36.5; O2SAT 97
[2016-05-03] MEDS: SOTALOL HCL 80 MG TAB PO SCH ×3 (05:33→12:04)
[2016-05-03 07:10] LABS: BUN/CREATININE RATIO 15.2 (10-20); CALCIUM 8.6 mg/dl (8.5-10.1); POTASSIUM 3.8 mmol/L (3.5-5.1)
[2016-05-03 07:47] VITALS: BP 107/52; PULSE 62; TEMP 36.8; O2SAT 96
[2016-05-03 08:02] LABS: 18KDIGG BAND NONREACTIVE (NONREACTIVE); 23KDIGG BAND NONREACTIVE (NONREACTIVE); 23KDIGM BAND NONREACTIVE (NONREACTIVE); 28KDIGG BAND NONREACTIVE (NONREACTIVE); 30KDIGG BAND NONREACTIVE (NONREACTIVE); 39KDIGG BAND NONREACTIVE (NONREACTIVE); 39KDIGM BAND NONREACTIVE (NONREACTIVE); 41KDIGG BAND REACTIVE (NONREACTIVE); 41KDIGM BAND NONREACTIVE (NONREACTIVE); 45KDIGG BAND NONREACTIVE (NONREACTIVE); 58KDIGG BAND REACTIVE (NONREACTIVE); 66KDIGG BAND NONREACTIVE (NONREACTIVE); 93KDIGG BAND NONREACTIVE (NONREACTIVE)
[2016-05-03] MEDS: LISINOPRIL 20 MG TAB PO SCH (08:48)
[2016-05-03] MEDS: ALLOPURINOL 300 MG TAB PO SCH (08:48)
[2016-05-03] MEDS: PANTOprazole SOD 40 MG TAB PO SCH (08:49)
[2016-05-03] MEDS: MAGNESIUM OXIDE 400 MG TAB PO SCH (08:49)
[2016-05-03] MEDS: POTASSIUM CHLORIDE 10 MEQ TABCR PO SCH (08:49)
[2016-05-03] MEDS: ENOXAPARIN 40 MG/0.4 ML SYR SC SCH (08:50)
[2016-05-03] MEDS ORDERED: METOPROLOL SUCC 25MG EXT REL TAB PO SCH (09:00)
[2016-05-03 11:52] VITALS: BP 103/68; PULSE 67; TEMP 36.9; O2SAT 93
[2016-05-03] MEDS ORDERED: OMEP20TA PO (13:24)
[2016-05-03] MEDS ORDERED: MAGNESIUM 100 MG PO (13:24)
[2016-05-03] MEDS ORDERED: LSX40 PO (13:24)
[2016-05-03] MEDS ORDERED: TPRSR25 PO ×2 (13:29→16:53)
--- NOTE | 2016-05-03 13:35 | Discharge Instructions ---
Discharge Instructions Admission Reason for Admission: ventricular tachycardia . Discharge Discharge Diagnosis / Problem: ventricular tachycardia Discharge Goals Goal(s): Decrease discomfort, Improve function, Improve disease control Activity Recommendations Activity Limitations: resume your previous activity . Instructions / Follow-Up Instructions / Follow-Up NEW MEDICATIONS: metoprolol succinate (Toprol XL) 25 mg once a day - helps regulate heart rhythm prescription sent to [facility] FOLLOW-UP APPOINTMENTS INTERNAL MEDICINE 05/08/2016 12:30 PM RACHEL Youssef CARDIOLOGY / ELECTROPHYSIOLOGY Office will contact you with appointment. Seek medical attention if you have: * temperature above 101 * chest pain or trouble breathing * extreme weakness or lightheadedness * abdominal pain, nausea, vomiting * diarrhea, dark stools or bloody stools * any unanswered questions or concerns Call 911 if symptoms are severe. Call if you have any questions or problems. My cell # is [phone]. You can also reach a [facility] hospitalist on duty at [facility] 24 hours a day by calling [phone]. Please take good care of yourself. Domo Sotomayor . Current Hospital Diet Patient's current hospital diet: AHA Diet (Heart Healthy) Discharge Diet Recommended Diet: AHA Diet (Heart Healthy) Pending Studies Studies pending at discharge: no Medical Emergencies . Who to Call and When: Medical Emergencies: If at any time you feel your situation is an emergency, please call 911 immediately. . Non-Emergent Contact Non-Emergency issues call your: Primary Care Provider, Laborer Tanbark . . "Provider Documentation" section prepared by Domo Sotomayor. VTE Core Measure Inpt VTE Proph given/why not?: Enoxaparin (Lovenox)SQ
--- NOTE | 2016-05-03 13:35 | Progress Note ---
Medicine Progress Note Date & Time of Visit: May 03, 2016 at 13:35 . Subjective Asymptomatic runs of nonsustained VT on telemetry. No ICD discharged. No anginal symptoms, lightheadedness, SOB. . Objective Last 8 Hrs Date Time Temp Pulse Resp B/P Pulse Ox O2 Delivery O2 Flow Rate FiO2 05/03/16 12:00 Room Air 05/03/16 11:52 36.9 67 18 103/68 93 Room Air 05/03/16 08:30 Room Air 05/03/16 07:47 36.8 62 20 107/52 96 Room Air Physical Exam: General- no distress Neck- no JVD Lungs- clear Heart- RRR Abdomen- + BS, soft, nontender Extremities- trace pretibial edema; no calf tenderness Neuro- alert . Laboratory Results: Last 24 Hours Test 05/03/16 05:35 Sodium Level 138 mmol/L Potassium Level 3.8 mmol/L Chloride Level 104 mmol/L Carbon Dioxide Level 24 mmol/L Anion Gap 10.0 mmol/L Blood Urea Nitrogen 15 mg/dl Creatinine 1.00 mg/dl Est Creatinine Clear Calc Drug Dose 92.6 ml/min Estimated GFR () 85.0 Estimated GFR (Non- 73.3 BUN/Creatinine Ratio 15.2 Random Glucose 94 mg/dl Calcium Level 8.6 mg/dl Assessment & Plan VENTRICULAR TACHYCARDIA / AICD DISCHARGES 4 discharges of AICD at home. Lytes, TSH OK. Cardiology consulted. Device interrogated. Metoprolol initiated. Continued sotalol. Had short runs of asymptomatic nonsustained VT; no further ICD discharges. CAD History of nonocclusive CAD. No anginal symptoms. CHF - (CHRONIC LEFT VENTRICULAR DIASTOLIC HEART FAILURE) Chest x-ray showed mild pulmonary vascular congestion. Echo showed moderate LVH, normal LV systolic function, grade II diastolic dysfunction. O2 sats OK on RA. Lungs clear to auscultation. No dyspnea. Continue furosemide. VTE PROPHYLAXIS SQ enoxaparin. Ambulating. DISPOSITION Discharge to home. Internal Medicine follow-up with Dr. Garcia. Cardiology / EP follow-up with Dr. Villareal at [facility]. . Current Inpatient Medications: Current Inpatient Medications Medications (Trade) Dose Ordered Sig/Floyd Route Start Time Stop Time Status Last Admin Dose Admin Sotalol HCl (Betapace Tab) 80 mg Q6H PO 05/01/16 06:00 05/31/16 05:59 05/03/16 12:04 80 MG Enoxaparin Sodium (Lovenox Inj) 40 mg DAILY@0900 SC 05/01/16 09:00 05/31/16 08:59 05/03/16 08:50 40 MG Acetaminophen (Tylenol Tab) 650 mg Q4H PRN PO 05/01/16 02:00 05/31/16 01:59 Nitroglycerin (Nitrostat Tab) 0.4 mg UD PRN SL 05/01/16 02:00 05/31/16 01:59 Allopurinol (Zyloprim Tab) 150 mg BID PO 05/01/16 09:00 05/31/16 08:59 05/03/16 08:48 150 MG Aspirin (Ecotrin Tab) 650 mg QID PRN PO 05/01/16 02:00 05/31/16 01:59 Lisinopril (Zestril Tab) 20 mg BID PO 05/01/16 09:00 05/31/16 08:59 05/03/16 08:48 20 MG Lorazepam (Ativan Tab) 1 mg Q8 PRN PO 05/01/16 02:00 05/31/16 01:59 05/02/16 22:09 1 MG Oxycodone HCl (Roxicodone Immediate Rel Tab) 5 mg Q4H PRN PO 05/01/16 02:00 05/15/16 01:59 Magnesium Oxide (Mag-Ox Tab) 200 mg BID PO 05/01/16 09:00 05/31/16 08:59 05/03/16 08:49 200 MG Pantoprazole Sodium (Protonix Tab) 40 mg BID PO 05/01/16 09:00 05/31/16 08:59 05/03/16 08:49 40 MG Potassium Chloride (Klor-Con M10) 10 meq DAILY PO 05/01/16 09:00 05/31/16 08:59 05/03/16 08:49 10 MEQ Polyethylene (Miralax Powder Packet) 17 gm DAILY PO 05/01/16 09:00 05/31/16 08:59 05/02/16 19:55 17 GM Hydromorphone HCl 0.5 mg 0.5 mg Q3H PRN IV 05/01/16 02:00 05/15/16 01:59 Promethazine HCl/ Sodium Chloride (Phenergan Inj/ Nss 50ml) 50.5 ml @ 204 mls/hr Q6H PRN IV 05/01/16 02:00 05/31/16 01:59 Miscellaneous (Iv Fluids Completed) 1 ea PRN PRN N/A 05/01/16 04:45 05/01/17 04:44 Metoprolol Succinate (Toprol Xl Tab) 25 mg QAM PO 05/03/16 09:00 06/01/16 08:59 05/03/16 08:48 25 MG
[2016-05-03 13:57] VITALS: BP 103/68; PULSE 67; TEMP 36.9; O2SAT 93
--- NOTE | 2016-05-03 17:13 | Discharge Summary ---
Discharge Summary Admission Date: May 01, 2016 at 01:22 Discharge Date: May 03, 2016 Discharge Disposition: Home Principal Diagnosis: ventricular tachycardia with ICD discharges . Secondary Diagnoses/Problems: Chronic and REsolved Medical Problems: (2) AICD (automatic cardioverter/defibrillator) present Status: Chronic (3) Anxiety Status: Chronic (4) BPH (benign prostatic hypertrophy) Status: Chronic (5) Dyslipidemia Status: Chronic (6) GERD (gastroesophageal reflux disease) Status: Chronic (7) Gout Status: Chronic (8) HTN (hypertension) Status: Chronic (9) CHF Permanent Comment: TTE 09/01/2013 - Normal LV systolic function without regional wall motion abnormality, EF 55-60%. Cath 08/18/2015 - moderate LV dysfunction, EF 40%, diffuse LV hypokinesis TTE 05/01/2016 - mild conc LVH, LVEF 60-65%, grade II diastolic dysfunction Status: Chronic (10) Nonobstructive coronary atherosclerosis Permanent Comment: cath 08/17/2005- Mild luminal irregularities of the RCA, Right dominant system, No angiographically hemodynamically significant stenosis Status: Chronic (11) PVT (paroxysmal ventricular tachycardia) Status: Chronic (12) Sleep apnea Status: Chronic Surgical Problems: (1) H/o CT guided needle biopsy Status: Chronic (2) History of implantable cardioverter-defibrillator (ICD) placement Status: Chronic (3) S/P appendectomy Status: Chronic (4) S/p EGD Status: Chronic (5) S/P laparoscopic cholecystectomy Status: Chronic . Procedures: cardiac monitoring echocardiogram . Consultations: Cardiology with Dr. Hess . Medication Reconciliation New Medications: Metoprolol Succinate (Metoprolol Succinate ER) 25 Mg Tabcr 1 TAB PO DAILY, #30 TAB 5 Refills Continued Medications: Allopurinol (Zyloprim) 300 Mg Tab 1 TAB PO DAILY Aspirin (Aspirin) 325 Mg Tab 2 TAB PO QID PRN for Shoulder Pain Furosemide (Furosemide) 40 Mg Tab 1 TAB PO DAILY Lisinopril (Zestril) 40 Mg Tab 1 TAB PO DAILY, TAB Lorazepam (Lorazepam) 1 Mg Tab 1 MG PO Q8 PRN for Anxiety Omeprazole (Omeprazole) 20 Mg Tab 0.5 TAB PO BID, TAB Take 1/2 pill twice a day. Oxycodone Immediate Rel Tab (Roxicodone Ir) 5 Mg Tab 1 TAB PO Q4H PRN for Pain, TAB Polyethylene Glycol 3350 (Bulk (Polyethylene Glycol 3350) 1 Pow Pow 1 TBS PO DAILY PRN for Constipation, GM Potassium Chloride (Potassium Chloride Cr) 10 Meq Tab 1 TAB PO DAILY Sotalol Hcl (Sotalol Hcl) 80 Mg Tab 1 TAB PO QID [magnesium 100 mg] () 1 TAB PO BID Admission Information HPI (per Admitting provider): Medical history significant for chronic diastolic heart failure (EF of 55% on 2D echo 2015), history of nonocclusive CAD; history of VT status post ICD placement, hypertension; hyperlipidemia, GERD, hearing loss. Recent confinement last August 2015 for sepsis secondary to urinary tract infection. Last night, the patient was at home sitting on the edge of his bed when he felt his defibrillator shocking 4 times in a span of 30 minutes. He denies chest pain, shortness of breath, admits to some leg swelling. Patient thinks he may have been late taking his scheduled sotalol. As per patient's friends, they are worried about patient drinks a lot of coffee; getting forgetful. Patient brought to the Emergency Room. . Physical Exam (per Admitting): VITAL SIGNS: Blood pressure was noted to be 138/86, pulse rate 90 RR 18 T 37 sats 97 on room air. GENERAL: Noted to be obese, very hard of hearing. no respiratory distress. SKIN : normal color HEENT: [place] palpebral conjunctivae. Dry mucosa. NECK: Short neck. LUNGS: Clear to auscultation. HEART: Regular rate and rhythm. ABDOMEN: Some distention, nontender. EXTREMITIES: Minimal LE edema, no tenderness. NEUROLOGIC: No gross focality except for marked hearing impairment. . Hospital Course VENTRICULAR TACHYCARDIA / ICD DISCHARGES 4 discharges of AICD at home. Lytes, TSH OK. Cardiology consulted. Device interrogated. QTc prolonged @ ~ 520 mSec Sotalol 80 mg QID continued. Metoprolol succinate 25 mg daily initiated. Had short runs of asymptomatic nonsustained VT; no further ICD discharges. CAD History of nonocclusive CAD. No anginal symptoms. CHF - (CHRONIC LEFT VENTRICULAR DIASTOLIC HEART FAILURE) Chest x-ray showed mild pulmonary vascular congestion. Echo showed moderate LVH, normal LV systolic function, grade II diastolic dysfunction. O2 sats OK on RA. Lungs clear to auscultation. No dyspnea. Continue furosemide. VTE PROPHYLAXIS SQ enoxaparin. Ambulating. DISPOSITION Discharged to home. Internal Medicine follow-up with Dr. Garcia. Cardiology / EP follow-up with Dr. Villareal at [facility]. . Total time spent on discharge = This includes examination of the patient, discharge planning, medication reconciliation, and communication with other providers. Discharge Instructions Admission Reason for Admission: ventricular tachycardia . Discharge Discharge Diagnosis / Problem: ventricular tachycardia Discharge Goals Goal(s): Decrease discomfort, Improve function, Improve disease control Activity Recommendations Activity Limitations: resume your previous activity . Instructions / Follow-Up Instructions / Follow-Up NEW MEDICATIONS: metoprolol succinate (Toprol XL) 25 mg once a day - helps regulate heart rhythm prescription sent to [facility] FOLLOW-UP APPOINTMENTS INTERNAL MEDICINE 05/08/2016 12:30 PM RACHEL Youssef CARDIOLOGY / ELECTROPHYSIOLOGY Office will contact you with appointment. Seek medical attention if you have: * temperature above 101 * chest pain or trouble breathing * extreme weakness or lightheadedness * abdominal pain, nausea, vomiting * diarrhea, dark stools or bloody stools * any unanswered questions or concerns Call 911 if symptoms are severe. Call if you have any questions or problems. My cell # is [phone]. You can also reach a [facility] hospitalist on duty at [facility] 24 hours a day by calling [phone]. Please take good care of yourself. Domo Sotomayor . Current Hospital Diet Patient's current hospital diet: AHA Diet (Heart Healthy) Discharge Diet Recommended Diet: AHA Diet (Heart Healthy) Pending Studies Studies pending at discharge: no Medical Emergencies . Who to Call and When: Medical Emergencies: If at any time you feel your situation is an emergency, please call 911 immediately. . Non-Emergent Contact Non-Emergency issues call your: Primary Care Provider, [facility] Rep[facility]r . . "Provider Documentation" section prepared by Domo Sotomayor. VTE Core Measure Inpt VTE Proph given/why not?: Enoxaparin (Lovenox)SQ
--- NOTE | 2016-05-03 18:29 | Cardiology Follow-Up ---
Subjective Subjective Date of Service: May 03, 2016. Pt evaluation today including: conversation w/ patient, physical exam, chart review, lab review, review of studies, review of inpatient medication list Additional Details: Pt seen and examined, without complaint. Anxious to be discharged. Denies cp, sob, palpitations, lightheadedness or dizziness. Tele reviewed: sinus rhythm, occasional PVC's. Rare NSVT, improved. Problem List Medical Problems: (1) Altered mental status Status: Acute (2) Fever Status: Acute (3) Nonsustained ventricular tachycardia Status: Acute Review of Systems Respiratory: No cough, No dyspnea at rest, No dyspnea on exertion, No hemoptysis, No problem reported, No see HPI, No shortness of breath, No sputum, No wheezing Cardiac: No PND, No chest pain, No claudication, No edema, No orthopnea, No palpitations, No problem reported, No see HPI Objective Vital Signs Last Vital Signs Documentation Date Time Temp Pulse Resp B/P Pulse Ox O2 Delivery O2 Flow Rate FiO2 05/03/16 13:57 36.9 67 18 93 Room Air 05/03/16 11:52 103/68 Physical Exam: General Appearance: WD/WN, no apparent distress, + pertinent finding (very hard of hearing) Eyes: bilateral eyes EOMI, bilateral eyes PERRL, bilateral eyes normal inspection ENT: normal ENT inspection, hearing grossly normal, pharynx normal Neck: supple, no adenopathy, thyroid normal, no JVD, no carotid bruits, trachea midline Respiratory/Chest: chest non-tender, lungs clear, normal breath sounds, no respiratory distress Cardiovascular: regular rate, rhythm, no gallop, no murmur, + gallop/S4 Abdomen: normal bowel sounds, non tender, soft, no organomegaly, + pertinent finding Extremities: normal inspection, no pedal edema, no calf tenderness Neurologic/Psychiatric: automatic operator II-XII nml as tested, no motor/sensory deficits, alert, normal mood/affect, oriented x 3 Skin: normal color, warm/dry, no rash Lymphatic: no adenopathy Assessment and Plan 1. ICD firing appropriate for sustained V tach pt with long history pt with daily episodes of NSVT usually able to pace out of rhythm did receive 4 ICD firings, unclear why ATP was unsuccessful ?medication tolerance no sign of active ischemia QTc elevated somewhat with extra doses of sotalol, will cont with previous outpatient regimen instead will uptitrate toprol cont metoprolol 25mg daily will need f/u with EP as outpatient will also need Lexiscan nuclear stress as outpatient ok to d/c to home from cardiac standpoint
== END 2016-05-03 15:01 | disposition home or self-care (01) ==
LOC: ENRESERVTM → ENRESERVDT → EDBD 22:24 → C.EDB 22:25 → C.MED 05-01 01:22
PROVIDERS: ADMIT Internal Medicine; ATTEND Hospitalist
DX: T82.198A Other mechanical complication of other cardiac electronic device, initial encounter (principal); Y83.1 Surgical operation with implant of artificial internal device as the cause of abnormal reaction of the patient, or of later complication, without mention of misadventure at the time of the procedure; I47.2 Ventricular tachycardia; N40.0 Benign prostatic hyperplasia without lower urinary tract symptoms; E78.5 Hyperlipidemia, unspecified; I50.32 Chronic diastolic (congestive) heart failure; I42.9 Cardiomyopathy, unspecified; K21.9 Gastro-esophageal reflux disease without esophagitis; G47.30 Sleep apnea, unspecified; H91.90 Unspecified hearing loss, unspecified ear; M19.012 Primary osteoarthritis, left shoulder; M10.9 Gout, unspecified; I10 Essential (primary) hypertension; I25.10 Atherosclerotic heart disease of native coronary artery without angina pectoris; Z90.49 Acquired absence of other specified parts of digestive tract; Z95.810 Presence of automatic (implantable) cardiac defibrillator; Z87.440 Personal history of urinary (tract) infections

== ENCOUNTER 2016-07-29 21:33 | Emergency (ER) | payer OTHER ==
[~2016-07-29] VITALS: Ht 188 cm; Wt 133.0 kg
[~2016-07-29 21:33] MED LIST changes: -AMOX1TAB43 PO; -DICL1GEL28 TOP; -FURO40TA3 PO; +LSX40 PO; -MAGN200T3 PO; +MAGNESIUM 100 MG PO; -OMEP20CA9 PO; +OMEP20TA PO; +TPRSR25 PO
[2016-07-29 21:39] VITALS: Ht 188 cm; Wt 133.0 kg
[2016-07-29 21:54] VITALS: O2SAT 94
[2016-07-29 22:16] LABS: ISTAT CREATININE 0.8 mg/dl (0.6-1.3); ISTAT IONIZED CALCIUM 1.16 mmol/l (1.12-1.32)
[2016-07-29] MEDS ORDERED: MAGN400T6 PO (22:20)
[2016-07-29 22:35] LABS: BASO % 0.8 %; BASO ABS # 0.06 K/uL (0-0.2); COMPLETE YES; EOS % 2.1 %; HEMATOCRIT 45.6 % (42-52); IG% 0.3 %; LYMPH % 16.1 %; MEAN CELL VOLUME 81.1 fL (80-100); MEAN CORPUSCULAR HEMOGLOBIN 27.6 pg (25-34); MONO % 14.9 %; NEUT % 65.8 %; PLATELET COUNT 230 K/uL (130-400); RED BLOOD COUNT 5.62 M/uL (4.7-6.1); WHITE BLOOD COUNT 7.45 K/uL (4.8-10.8)
[2016-07-29 22:43] LABS: ALT/SGPT 14 U/L (12-78); BLOOD UREA NITROGEN 12 mg/dl (7-18); BUN/CREATININE RATIO 12.1 (10-20); CALCIUM 8.5 mg/dl (8.5-10.1); CARBON DIOXIDE 25 mmol/L (21-32); CHLORIDE 106 mmol/L (98-107); GLUCOSE 105 mg/dl (70-99); SODIUM 139 mmol/L (136-145)
[2016-07-29] MEDS ORDERED: LORAZEPAM 2 MG/ML 1 ML VIAL IV PRN (22:45)
--- NOTE | 2016-07-29 22:50 | DIAGNOSTIC IMAGING REPORT ---
CHEST ONE VIEW PORTABLE CLINICAL HISTORY: Chest pain. Weakness. COMPARISON STUDY: Chest radiograph April 30, 2016. FINDINGS: Pacer pads overlie the chest. There is a dual lead left subclavian pacemaker/AICD. No pneumothorax or pleural effusion is present. Cardiomegaly is unchanged. There's no evidence of pulmonary edema. Arthritis of both glenohumeral joints is incidentally noted. IMPRESSION: Stable cardiomegaly. No acute findings identified. Electronically signed by: Chuy Davidson M.D. 07/29/2016 10:48 PM Dictated Date/Time: 07/29/2016 10:47 PM
[2016-07-29 22:51] LABS: PARTIAL THROMBOPLASTIN RATIO 1.2; PROTHROMBIN TIME (PATIENT) 10.8 SECONDS (9.0-12.0)
[2016-07-29 22:54] LABS: ALKALINE PHOSPHATASE 125 U/L (45-117); AST/SGOT 12 U/L (15-37); CKMB/CK RATIO 2.4 (0-3.0)
[2016-07-29] MEDS ORDERED: METOPROLOL TARTRATE 1 MG/ML VIAL IV STA (23:01)
[2016-07-29] MEDS ORDERED: LIDOCAINE IV BOLUS & DRIP IV STA (23:24)
[2016-07-29] MEDS ORDERED: LIDOCAINE / D5W 4MG/ML DRIP 500 ML IV STA (23:27)
--- NOTE | 2016-07-30 00:04 | EMERGENCY ROOM VISIT NOTE ---
History First contact with patient: 21:54 Chief Complaint: CARDIAC ASSESSMENT Stated Complaint: WEAKNESS/CHEST DISCOMFORT Nursing Triage Summary: Brought in by ALS. Defibrillater fired x2. Prior to this, last pacer defib on Apr 30 this year - evaluated and had medication changed. Since then, feeling progressively more lightheaded, anxious and fatigued. For EMS - two 4-5 second runs of vtach, did not fire. Recieved 180mg lidocaine. Allergy to amiodarone. Denies chest pain or shortness of breath. Alert and oriented. PMH: Vtach, on second AICD. PCP Mina Hernandes. 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 History of Present Illness The patient is a 76 year old male who presents to the Emergency Department via EMS after sustaining to defibrillator discharges this evening. He has a history of nonischemic cardiomyopathy with stable of greater than 50% on recent echocardiogram in April. In addition, he has a history of idiopathic ventricular tachycardia for which she had an ICD placed initially in 2005 in [place]. His ICD was replaced in 2013 at [place]. He has had no real issue until this year. On April 30, he had defibrillation 5 which prompted her visit to this facility. He was admitted to the hospital and had metoprolol 25 mg daily added in addition to his sotalol. He reports that since the addition of metoprolol, he has felt weak and tired as well as generalized malaise. He has been taking his medications daily as prescribed. This evening at approximately 8:30 PM, while reading a book, he was shocked. He was shocked a second time at approximately 845. He contacted family who subsequently contacted EMS. Patient is had multiple runs of V. tach. He had two, 4-5 second runs of V. tach. He was treated with 180 mg of IV lidocaine intravenously. He's had persistent V. tach since. The patient reports pain with ICD firing, but denies any pain at this time. He reports no syncope. He denies any headaches, dizziness, chest pain, palpitations, nausea, vomiting, or abdominal pain. There is been no other new changes in medications other than Ativan which he reports taking nightly for anxiety. Patient rates his current discomfort as a 7/10. Review of Systems A complete 10-point Review of Systems was discussed with the patient, with pertinent positives and negatives listed in the History of Present Illness. All remaining Review of Systems questions can be considered negative unless otherwise specified. Past Medical/Surgical History Medical Problems: (1) AICD (automatic cardioverter/defibrillator) present (2) Anxiety (3) BPH (benign prostatic hypertrophy) (4) Dyslipidemia (5) GERD (gastroesophageal reflux disease) (6) Gout (7) HTN (hypertension) (8) ICD (implantable cardioverter-defibrillator) discharge (9) Idiopathic cardiomyopathy (10) Nonobstructive coronary atherosclerosis (11) PVT (paroxysmal ventricular tachycardia) (12) Sleep apnea Surgical Problems: (1) H/o CT guided needle biopsy (2) History of implantable cardioverter-defibrillator (ICD) placement (3) S/P appendectomy (4) S/p EGD (5) S/P laparoscopic cholecystectomy Family History FH: cancer FATHER Social History Smoking Status: Never Smoker Alcohol Use: none Drug Use: none Marital Status: single Housing Status: lives alone Occupation Status: retired Current/Historical Medications Scheduled Allopurinol (Zyloprim), 1.5 TAB PO DAILY Furosemide (Furosemide), 1 TAB PO DAILY Lisinopril (Zestril), 1 TAB PO DAILY Magnesium Oxide (Mag-Ox), 1 TAB PO BID Metoprolol Succinate (Metoprolol Succinate ER), 1 TAB PO DAILY Omeprazole (Omeprazole), 10 MG PO BID Potassium Chloride (Potassium Chloride Cr), 1 TAB PO DAILY Sotalol Hcl (Sotalol Hcl), 1 TAB PO QID Scheduled PRN Aspirin (Aspirin), 2 TAB PO QID PRN for Shoulder Pain Lorazepam (Lorazepam), 1 MG PO Q8 PRN for Anxiety Polyethylene Glycol 3350 (Bulk (Polyethylene Glycol 3350), 1 TBS PO DAILY PRN for Constipation Allergies Coded Allergies: Amiodarone (Verified Allergy, Intermediate, "IODINE OVERDOSE SYMPTOMS, 07/29) Physical Exam Vital Signs Date Time Temp Pulse Resp B/P Pulse Ox O2 Delivery O2 Flow Rate FiO2 07/29/16 23:47 87 16 150/89 95 Room Air 07/29/16 23:20 90 16 151/90 96 Room Air 07/29/16 23:14 94 150/98 07/29/16 22:45 81 14 94 07/29/16 22:31 143/95 07/29/16 22:15 77 20 95 07/29/16 22:12 174 07/29/16 22:01 119/96 07/29/16 21:54 94 Room Air 07/29/16 21:53 98 07/29/16 21:45 82 17 94 07/29/16 21:39 36.9 103 20 166/99 95 Room Air 07/29/16 21:39 95 Room Air Pain Rating (0-10): 7 Physical Exam VITAL SIGNS - Vital signs and nursing notes were reviewed. GENERAL - 76-year-old male appearing his stated age who is in no acute distress. Hard of hearing, but communicates well with provider. LUNGS - Chest wall symmetric without accessory muscle use, intercostals retractions, or central cyanosis. Normal vesicular breath sounds CTA B/L. No wheezes, rales, or rhonchi appreciated. CARDIAC - RRR with S1/S2. No murmur, rubs, or gallops appreciated. No reproducible tenderness to palpation appreciated over the anterior chest wall. ABDOMEN - Abdominal contour obese and without pulsations or visible masses. BS normoactive all four quadrants. No tenderness, palpable masses, hepatosplenomegaly, or ascites noted. EXTREMITIES - No clubbing or peripheral cyanosis. Mild pretibial edema present bilaterally. +3/5 radial and dorsalis pedis pulses palpated throughout. +/5 strength noted in UE/LE bilaterally. NEUROLOGIC - Cranial nerves II through XII grossly intact. Sensory intact to light touch throughout. PSYCH - A&Ox3 and cooperates fully with examiner. Pt is very pleasant and interacts well with examiner. Medical Decision & Procedures ER Provider Diagnostic Interpretation: Radiological imaging and reports were reviewed by myself. Radiologist's Interpretation as follows: CHEST ONE VIEW PORTABLE CLINICAL HISTORY: Chest pain. Weakness. COMPARISON STUDY: Chest radiograph April 30, 2016. FINDINGS: Pacer pads overlie the chest. There is a dual lead left subclavian pacemaker/AICD. No pneumothorax or pleural effusion is present. Cardiomegaly is unchanged. There's no evidence of pulmonary edema. Arthritis of both glenohumeral joints is incidentally noted. IMPRESSION: Stable cardiomegaly. No acute findings identified. Laboratory Results 07/29/16 21:55 Red Blood Count 5.62, Mean Corpuscular Volume 81.1, Mean Corpuscular Hemoglobin 27.6, Mean Corpuscular Hemoglobin Concent 34.0, Mean Platelet Volume 9.0, Neutrophils (%) (Auto) 65.8, Lymphocytes (%) (Auto) 16.1, Monocytes (%) (Auto) 14.9, Eosinophils (%) (Auto) 2.1, Basophils (%) (Auto) 0.8, Neutrophils # (Auto ) 4.90, Lymphocytes # (Auto) 1.20, Monocytes # (Auto) 1.11, Eosinophils # (Auto ) 0.16, Basophils # (Auto) 0.06 07/29/16 21:55 Test 07/29/16 21:55 07/29/16 22:03 07/29/16 22:18 White Blood Count 7.45 K/uL (4.8-10.8) Red Blood Count 5.62 M/uL (4.7-6.1) Hemoglobin 15.5 g/dL (14.0-18.0) Hematocrit 45.6 % (42-52) Mean Corpuscular Volume 81.1 fL (80-100) Mean Corpuscular Hemoglobin 27.6 pg (25-34) Mean Corpuscular Hemoglobin Concent 34.0 g/dl (32-36) Platelet Count 230 K/uL (130-400) Mean Platelet Volume 9.0 fL (7.4-10.4) Neutrophils (%) (Auto) 65.8 % Lymphocytes (%) (Auto) 16.1 % Monocytes (%) (Auto) 14.9 % Eosinophils (%) (Auto) 2.1 % Basophils (%) (Auto) 0.8 % Neutrophils # (Auto) 4.90 K/uL (1.4-6.5) Lymphocytes # (Auto) 1.20 K/uL (1.2-3.4) Monocytes # (Auto) 1.11 K/uL (0.11-0.59) Eosinophils # (Auto) 0.16 K/uL (0-0.5) Basophils # (Auto) 0.06 K/uL (0-0.2) RDW Standard Deviation 46.0 fL (36.4-46.3) RDW Coefficient of Variation 15.5 % (11.5-14.5) Immature Granulocyte % (Auto) 0.3 % Immature Granulocyte # (Auto) 0.02 K/uL (0.00-0.02) Prothrombin Time 10.8 SECONDS (9.0-12.0) Prothromb Time International Ratio 1.0 (0.9-1.1) Activated Partial Thromboplast Time 30.1 SECONDS (21.0-31.0) Partial Thromboplastin Ratio 1.2 Est Creatinine Clear Calc Drug Dose 92.6 ml/min Estimated GFR () 85.0 Estimated GFR (Non- 73.3 BUN/Creatinine Ratio 12.1 (10-20) Calcium Level 8.5 mg/dl (8.5-10.1) Magnesium Level 2.0 mg/dl (1.8-2.4) Total Bilirubin 0.5 mg/dl (0.2-1) Aspartate Amino Transf (AST/SGOT) 12 U/L (15-37) Alanine Aminotransferase (ALT/SGPT) 14 U/L (12-78) Alkaline Phosphatase 125 U/L (45-117) Total Creatine Kinase 46 U/L (39-308) Creatine Kinase MB 1.1 ng/ml (0.5-3.6) Creatine Kinase MB Ratio 2.4 (0-3.0) Troponin I < 0.015 ng/ml (0-0.045) Total Protein 6.9 gm/dl (6.4-8.2) Albumin 3.5 gm/dl (3.4-5.0) Globulin 3.4 gm/dl (2.5-4.0) Albumin/Globulin Ratio 1.0 (0.9-2) Lipase 137 U/L (73-393) Thyroid Stimulating Hormone (TSH) 2.300 uIu/ml (0.300-4.500) Bedside Hemoglobin 16.0 g/dl (14.0-18.0) Bedside Hematocrit 47 % (42-52) Bedside Sodium 140 mEq/L (135-144) Bedside Potassium 4.1 mEq/L (3.3-5.0) Bedside Chloride 103 mEq/L (101-112) Bedside Total CO2 22 mEq/l (24-31) Anion Gap 20.0 mmol/L (16-25) Bedside Blood Urea Nitrogen 12 mg/dl (7-18) Bedside Creatinine 0.8 mg/dl (0.6-1.3) Bedside Glucose (other) 100 mg/dl (70-99) Bedside Ionized Calcium (Mare) 1.16 mmol/l (1.12-1.32) Bedside Troponin I 0.000 ng/ml (0-0.045) Medications Administered Medications (Trade) Dose Ordered Sig/Floyd Route Start Time Stop Time Status Last Admin Dose Admin Metoprolol Tartrate 5 mg 5 mg NOW STAT IV 07/29/16 23:01 07/29/16 23:02 DC 07/29/16 23:14 5 MG Lidocaine HCl/ Dextrose (Lidocaine / D5w 4MG/Ml Drip) 500 ml @ 15 mls/hr Q24H STAT IV 07/29/16 23:27 07/30/16 23:26 07/29/16 23:44 15 MLS/HR Procedure Patient was placed on the front desk monitor and monitored throughout the entire extent of their stay. In addition, the patient's pulse oximetry was monitored throughout the entire stay. Any abnormalities or aberrancies were addressed appropriately. ECG Indication: chest pain Rate (beats per minute): 91 Rhythm: sinus rhythm Findings: PVC, no acute ischemic change Change: no significant change (from 05/02/2013.) ED Course Patient was seen and evaluated by myself in conjunction with my attending physician. Labs were drawn, saline lock in place. EKG and chest x-ray were obtained. Previous emergency department visit note and hospitalization notes were reviewed. I did discuss the case with Dr. Moser [facility] cardiology. He was kind enough to speak with electrophysiology as well as cardiology at [place]. Laboratory results demonstrate no acute leukocytosis, worrisome anemia, or bandemia. The patient has no significant electrolyte abnormalities. The patient was treated with 5 mg IV metoprolol for ongoing runs of ventricular tachycardia. Chest x-ray demonstrate no acute findings. Dr. Moser called back and suggests IV lidocaine drip and transfer to tertiary care facility for continued management and possible intervention. Information was relayed to the patient who acknowledges understanding. The patient was transferred in fair condition to [facility] via EMS. Medical Decision Given the patient's presentation and concern in V. tach, the above-mentioned workup was performed. The patient has a long-standing history of ventricular tachyarrhythmia with ICD placement. He had a firing of his ICD back in April of this past year. He was placed on metoprolol. Since that time he's been weak and tired. Regardless, the patient has been a symptomatically without any ICD firing until this evening. The patient has had multiple rounds of V. tach including a run up to 30 beats for minute. During this episode, the patient did seem to capture. He was treated with IV lidocaine in route second very to allergy to amiodarone. His laboratory assessment was surprisingly unremarkable with no electrolyte abnormalities or acute cardiac enzyme elevations. He did receive an IV dose of metoprolol at the rectum additional cardiology which did seem to help the runs of ventricular tachyarrhythmia. Patient was started on IV drip of lidocaine at 1 mg/m at the recommendation of cardiology. He was transferred to [facility] under the acceptance of Dr. Mims for further evaluation and possible intervention. In the evaluation and treatment of this patient, the following differential diagnoses were considered: PA, ASC, Dysrhythmia, Angina, Mediastinitis, GERD, Esophagitis, PE, Pneumonia, Bronchitis, Costochondritis, Rib Fracture, Zoster. Impression Primary Impression: Ventricular tachycardia (paroxysmal) Additional Impression: ICD (implantable cardioverter-defibrillator) discharge Critical Care I have personally spent greater than 45 minutes of critical care time in the direct management of this patient. This includes bedside care, interpretation of diagnostic studies, and testing, discussion with consultants, patient, and family members, and other required patient management activities. This 45 minutes is in excess of all separately billable procedures. Departure Information Dispostion Transfer Acute Care Facility Condition FAIR Referrals Ed Garcia D.O. (PCP) Patient Instructions My [facility] Problem Qualifiers
[2016-07-30 01:18] VITALS: BP 144/87; PULSE 75; TEMP 36.9; O2SAT 93
== END 2016-07-30 01:19 | disposition short-term general hospital (02) ==
LOC: EDBD 21:33 → C.EDC 21:34
DX: T82.198A Other mechanical complication of other cardiac electronic device, initial encounter (principal); Y83.1 Surgical operation with implant of artificial internal device as the cause of abnormal reaction of the patient, or of later complication, without mention of misadventure at the time of the procedure; I47.2 Ventricular tachycardia; N40.0 Benign prostatic hyperplasia without lower urinary tract symptoms; E78.5 Hyperlipidemia, unspecified; I42.9 Cardiomyopathy, unspecified; K21.9 Gastro-esophageal reflux disease without esophagitis; G47.30 Sleep apnea, unspecified; M10.9 Gout, unspecified; I10 Essential (primary) hypertension; Z90.49 Acquired absence of other specified parts of digestive tract; Z95.810 Presence of automatic (implantable) cardiac defibrillator; F41.9 Anxiety disorder, unspecified

== ENCOUNTER 2016-09-22 17:57 | Emergency (ER) | payer OTHER ==
[~2016-09-22] VITALS: Ht 188 cm; Wt 103.8 kg
[~2016-09-22 17:57] MED LIST changes: +MAGN400T6 PO; -MAGNESIUM 100 MG PO; -OXYC1TAB3 PO
[2016-09-22 18:09] VITALS: Ht 188 cm; Wt 103.8 kg
[2016-09-22] MEDS ORDERED: AMOX500C3 PO (18:39)
[2016-09-22] MEDS ORDERED: MXT150 PO (18:39)
[2016-09-22 19:11] LABS: BASO % 0.5 %; BASO ABS # 0.03 K/uL (0-0.2); COMPLETE YES; EOS % 1.5 %; HEMATOCRIT 47.7 % (42-52); IG% 0.2 %; LYMPH % 23.2 %; MEAN CELL VOLUME 81.7 fL (80-100); MEAN CORPUSCULAR HEMOGLOBIN 28.3 pg (25-34); MEAN CORPUSCULAR HGB CONC 34.6 g/dl (32-36); MEAN PLATELET VOLUME 8.7 fL (7.4-10.4); MONO % 16.2 %; NEUT % 58.4 %; PLATELET COUNT 224 K/uL (130-400); RED BLOOD COUNT 5.84 M/uL (4.7-6.1); WHITE BLOOD COUNT 6.04 K/uL (4.8-10.8)
[2016-09-22 19:30] LABS: ACETAMINOPHEN < 2 ug/ml (10-30); BUN/CREATININE RATIO 14.9 (10-20); CALCIUM 9.2 mg/dl (8.5-10.1); CREATININE 1.1 mg/dl (0.60-1.40); POTASSIUM 4.3 mmol/L (3.5-5.1)
[2016-09-22] MEDS ORDERED: SOTALOL HCL 80 MG TAB PO STA (19:35)
[2016-09-22 19:41] LABS: ALB/GLOB RATIO 1.1 (0.9-2); THYROID STIMULATING HORMONE 1.94 uIu/ml (0.300-4.500)
[2016-09-22 20:40] LABS: URINE APPEARANCE CLEAR (CLEAR); URINE BILIRUBIN NEG (NEG); URINE COLOR DK YELLOW; URINE NITRITE NEG (NEG); URINE PH 5.5 (4.5-7.5); URINE SPECIFIC GRAVITY 1.021 (1.000-1.030); UROBILINOGEN NEG (NEG); ZZUR CULT IF INDIC CLEAN CATCH NO
--- NOTE | 2016-09-22 20:42 | EMERGENCY ROOM VISIT NOTE ---
History Report prepared by Coryibcamelia: Papito Suarez Under the Supervision of: Dr. Jose Brown M.D. First contact with patient: 18:06 Stated Complaint: MHID History of Present Illness The patient is a 76 year old male who presents to the Emergency Room by police for allegedly making suicidal statements today. There is a 302 warrant for the patient. It is reported that he presents to the ED after making suicidal statements. The patient denies making any suicidal statements. He states that he made an "illusion" to harming himself. He admits that he owns two firearms. The patient states that he said "firearms are not sufficiently accurate to harm oneself, you need three sticks of dynamite". 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 The patient states that he was making a joke. Per nursing staff, the patient has been complaining of generalized body pain, which is chronic. He states that the patient also notes that he has had an infection in his mouth. He also states that the patient's roommate heard the patient making suicidal statements. Source of History: patient Onset: Today Quality: other (suicidal statements) Review of Systems See HPI for pertinent positives & negatives. A total of 10 systems reviewed and were otherwise negative. Past Medical & Surgical Medical Problems: (1) AICD (automatic cardioverter/defibrillator) present (2) Anxiety (3) BPH (benign prostatic hypertrophy) (4) Dyslipidemia (5) GERD (gastroesophageal reflux disease) (6) Gout (7) HTN (hypertension) (8) ICD (implantable cardioverter-defibrillator) discharge (9) Idiopathic cardiomyopathy (10) Nonobstructive coronary atherosclerosis (11) PVT (paroxysmal ventricular tachycardia) (12) Sleep apnea Surgical Problems: (1) H/o CT guided needle biopsy (2) History of implantable cardioverter-defibrillator (ICD) placement (3) S/P appendectomy (4) S/p EGD (5) S/P laparoscopic cholecystectomy Family History FH: cancer FATHER Social History Smoking Status: Never Smoker Alcohol Use: none Drug Use: none Marital Status: single Housing Status: lives alone Occupation Status: retired Current/Historical Medications Scheduled Allopurinol (Zyloprim), 1.5 TAB PO DAILY Amoxicillin (Amoxil), 500 MG PO BID Furosemide (Furosemide), 1 TAB PO DAILY Lisinopril (Zestril), 20 MG PO DAILY Magnesium Oxide (Mag-Ox), 200 MG PO BID Metoprolol Succinate (Metoprolol Succinate ER), 1 TAB PO DAILY Mexiletine Hcl (Mexiletine Hcl), 150 MG PO Q12H Omeprazole (Omeprazole), 10 MG PO BID Potassium Chloride (Potassium Chloride Cr), 0.5 TAB PO BID Sotalol Hcl (Sotalol Hcl), 1 TAB PO QID Scheduled PRN Aspirin (Aspirin), 2 TAB PO QID PRN for Shoulder Pain Lorazepam (Lorazepam), 1 MG PO Q8 PRN for Anxiety Polyethylene Glycol 3350 (Bulk (Polyethylene Glycol 3350), 1 TBS PO DAILY PRN for Constipation Allergies Coded Allergies: Amiodarone (Verified Allergy, Intermediate, "IODINE OVERDOSE SYMPTOMS, ) Physical Exam Vital Signs Date Time Temp Pulse Resp B/P Pulse Ox O2 Delivery O2 Flow Rate FiO2 09/22/16 22:32 36.6 67 18 122/77 98 09/22/16 22:31 67 18 122/77 98 Room Air 09/22/16 21:04 69 18 127/77 98 Room Air 09/22/16 20:00 71 18 134/71 98 Room Air 09/22/16 18:09 36.6 69 18 134/87 98 Room Air Physical Exam PSYCH: Denies being suicidal or homicidal. GENERAL: Patient is a healthy-appearing well-nourished. Hard of hearing. HEAD: Normocephalic atraumatic EYES: Ocular movements intact pupils equal and react to light OROPHARYNX mucous membranes are moist no exudates present no erythema or edema present NECK: Supple no nuchal rigidity CHEST: Good equal expansion LUNGS: Clear and equal to auscultation CARDIAC: Normal S1 and S2 ABDOMEN: Soft nontender no guarding BACK: No CVA tenderness EXTREMITIES: No pain upon palpation normal muscle strength in all groups no clubbing cyanosis or edema NEURO: Patient is following commands is answering questions appropriately. Alert and oriented x3 Cranial Nerves 2-12 grossly intact Medical Decision & Procedures Laboratory Results 09/22/16 18:50 Red Blood Count 5.84, Mean Corpuscular Volume 81.7, Mean Corpuscular Hemoglobin 28.3, Mean Corpuscular Hemoglobin Concent 34.6, Mean Platelet Volume 8.7, Neutrophils (%) (Auto) 58.4, Lymphocytes (%) (Auto) 23.2, Monocytes (%) (Auto) 16.2, Eosinophils (%) (Auto) 1.5, Basophils (%) (Auto) 0.5, Neutrophils # (Auto ) 3.53, Lymphocytes # (Auto) 1.40, Monocytes # (Auto) 0.98, Eosinophils # (Auto ) 0.09, Basophils # (Auto) 0.03 09/22/16 18:50 Test 09/22/16 18:50 09/22/16 20:20 White Blood Count 6.04 K/uL (4.8-10.8) Red Blood Count 5.84 M/uL (4.7-6.1) Hemoglobin 16.5 g/dL (14.0-18.0) Hematocrit 47.7 % (42-52) Mean Corpuscular Volume 81.7 fL (80-100) Mean Corpuscular Hemoglobin 28.3 pg (25-34) Mean Corpuscular Hemoglobin Concent 34.6 g/dl (32-36) Platelet Count 224 K/uL (130-400) Mean Platelet Volume 8.7 fL (7.4-10.4) Neutrophils (%) (Auto) 58.4 % Lymphocytes (%) (Auto) 23.2 % Monocytes (%) (Auto) 16.2 % Eosinophils (%) (Auto) 1.5 % Basophils (%) (Auto) 0.5 % Neutrophils # (Auto) 3.53 K/uL (1.4-6.5) Lymphocytes # (Auto) 1.40 K/uL (1.2-3.4) Monocytes # (Auto) 0.98 K/uL (0.11-0.59) Eosinophils # (Auto) 0.09 K/uL (0-0.5) Basophils # (Auto) 0.03 K/uL (0-0.2) RDW Standard Deviation 46.4 fL (36.4-46.3) RDW Coefficient of Variation 15.6 % (11.5-14.5) Immature Granulocyte % (Auto) 0.2 % Immature Granulocyte # (Auto) 0.01 K/uL (0.00-0.02) Anion Gap 9.0 mmol/L (3-11) Est Creatinine Clear Calc Drug Dose 74.6 ml/min Estimated GFR () 75.7 Estimated GFR (Non- 65.3 BUN/Creatinine Ratio 14.9 (10-20) Calcium Level 9.2 mg/dl (8.5-10.1) Total Bilirubin 0.6 mg/dl (0.2-1) Aspartate Amino Transf (AST/SGOT) 12 U/L (15-37) Alanine Aminotransferase (ALT/SGPT) 14 U/L (12-78) Alkaline Phosphatase 124 U/L (45-117) Total Protein 7.0 gm/dl (6.4-8.2) Albumin 3.6 gm/dl (3.4-5.0) Globulin 3.4 gm/dl (2.5-4.0) Albumin/Globulin Ratio 1.1 (0.9-2) Thyroid Stimulating Hormone (TSH) 1.940 uIu/ml (0.300-4.500) Salicylates Level 7.1 mg/dl (2.8-20) Acetaminophen Level < 2 ug/ml (10-30) Ethyl Alcohol mg/dL < 3.0 mg/dl (0-3) Urine Color DK YELLOW Urine Appearance CLEAR (CLEAR) Urine pH 5.5 (4.5-7.5) Urine Specific [place] 1.021 (1.000-1.030) Urine Protein NEG (NEG) Urine Glucose (UA) NEG (NEG) Urine Ketones TRACE (NEG) Urine Occult Blood NEG (NEG) Urine Nitrite NEG (NEG) Urine Bilirubin NEG (NEG) Urine Urobilinogen NEG (NEG) Urine Leukocyte Esterase NEG (NEG) Urine Opiates Screen NEG (NEG) Urine Methadone, Qualitative NEG (NEG) Urine Barbiturates NEG (NEG) Urine Phencyclidine (PCP) Level NEG (NEG) Ur Amphetamine/Methamphetamine POS (NEG) MDMA (Ecstasy) Screen NEG (NEG) Urine Benzodiazepines Screen NEG (NEG) Urine Cocaine Metabolite NEG (NEG) Urine Marijuana (THC) NEG (NEG) Labs reviewed by ED physician. Medications Administered Medications (Trade) Dose Ordered Sig/Floyd Route Start Time Stop Time Status Last Admin Dose Admin Sotalol HCl (Betapace Tab) 80 mg NOW STAT PO 09/22/16 19:35 09/22/16 19:36 DC 09/22/16 19:50 80 MG ED Course 1810: Past medical records reviewed. The patient was evaluated in room A7. A complete history and physical examination was performed. 1934: Ordered Betapace Tab 80 mg PO. 2049: The patient was medically cleared. 2209: I refused the patient's 302 petition. 2214: Upon reexamination the patient is resting comfortably. I discussed results and treatment plan with the patient. He verbalizes agreement and understanding. The patient is ready for discharge. Medical Decision Differential diagnosis: Etiologies such as mood disorder, infection, hypoglycemia, electrolyte abnormalities, cardiac sources, intracerebral event, toxicologic, neurologic, as well as others were entertained. Medication Reconciliation: I attest that I have personally reviewed the patient' s current medication list Blood Pressure Screening: Patient was found to have an elevated blood pressure and was referred to their primary care doctor for recheck and further treatment This is a 76-year-old male who presents emergency department on a 302 warrant. The patient states he was making joke in the elementary school social worker did not feel the joke was appropriate therefore he was sent into the emergency department. I am concerned that there were no real threats on the 302 warrant in addition the patient denies being suicidal or homicidal. The patient was independently evaluated by case management who also felt that the patient could safely be discharged home. He was also and apparently evaluated by 3 S. her were in agreement with the treatment plan. The patient is can follow-up with his counselor and agrees to return to the emergency department he develops suicidal or homicidal thoughts. Patient was in agreement with the treatment plan. Impression Primary Impression: Mood disorder Scribe Attestation The scribe's documentation has been prepared under my direction and personally reviewed by me in its entirety. I confirm that the note above accurately reflects all work, treatment, procedures, and medical decision making performed by me. Departure Information Dispostion Home / Self-Care Referrals Ed Garcia D.O. (PCP) Forms HOME CARE DOCUMENTATION FORM, IMPORTANT VISIT INFORMATION Patient Instructions Hypertension Mo, My [facility] Additional Instructions Return to the Emergency Department for suicidal thoughts or Homicidal ideation You were found to have an elevated blood pressure today (>120 sytolic or >90 diastolic). Per medicare guidelines, you need to follow up with this blood pressure screening with your Primary Care Physician (PCP). For a new PCP call [phone]. You have been examined and treated today on an emergency basis only. This is not a substitute for, or an effort to provide, complete comprehensive medical care. It is impossible to recognize and treat all injuries or illnesses in a single emergency department visit. It is therefore important that you follow up closely with Dr Garcia. Call as soon as possible for an appointment. Thank you for your time and consideration. I look forward to speaking with you again soon. Please don't hesitate to call us if you have any questions.
[2016-09-22 20:45] LABS: MANUAL MICROSCOPIC REQUIRED? NO; REVIEW REQ? NO
[2016-09-22 20:49] LABS: BENZODIAZEPINE, URINE NEG (NEG); COCAINE,URINE NEG (NEG); PHENCYCLIDINE, URINE NEG (NEG)
[2016-09-22 22:32] VITALS: BP 122/77; PULSE 67; TEMP 36.6; O2SAT 98
== END 2016-09-22 22:33 | disposition home or self-care (01) ==
LOC: EDBD 17:57 → C.EDA 17:59
DX: F39 Unspecified mood [affective] disorder (principal); F41.9 Anxiety disorder, unspecified; N40.0 Benign prostatic hyperplasia without lower urinary tract symptoms; E78.5 Hyperlipidemia, unspecified; K21.9 Gastro-esophageal reflux disease without esophagitis; M10.9 Gout, unspecified; I10 Essential (primary) hypertension; I42.9 Cardiomyopathy, unspecified; I25.10 Atherosclerotic heart disease of native coronary artery without angina pectoris; I47.2 Ventricular tachycardia; G47.30 Sleep apnea, unspecified; Z95.810 Presence of automatic (implantable) cardiac defibrillator

== ENCOUNTER 2016-09-23 22:34 | Emergency (ER) | payer OTHER ==
[~2016-09-23] VITALS: Ht 193 cm; Wt 110.0 kg
[~2016-09-23 22:34] MED LIST changes: +AMOX500C3 PO; +MXT150 PO
[2016-09-23 22:37] VITALS: TEMP 36.6; Ht 193 cm; Wt 110.0 kg
[2016-09-23] MEDS ORDERED: SODIUM CHLORIDE 0.9% 500ML 500 ML IV STA (23:33)
[2016-09-23] MEDS ORDERED: KETOROLAC TROMETHAMINE 30 MG/ML VIAL IV STA (23:33)
[2016-09-23] MEDS ORDERED: HYDROmorphone INJ 2 MG/ML SYR/VIAL IV STA (23:33)
[2016-09-24 00:04] LABS: BASO % 0.2 %; BASO ABS # 0.02 K/uL (0-0.2); COMPLETE YES; EOS % 0.7 %; HEMATOCRIT 47.3 % (42-52); IG% 0.1 %; LYMPH % 11.7 %; LYMPH ABS # 0.96 K/uL (1.2-3.4); MEAN CELL VOLUME 81.3 fL (80-100); MEAN CORPUSCULAR HGB CONC 34.5 g/dl (32-36); MEAN PLATELET VOLUME 8.3 fL (7.4-10.4); MONO % 15.6 %; NEUT % 71.7 %; PLATELET COUNT 223 K/uL (130-400); RED BLOOD COUNT 5.82 M/uL (4.7-6.1); WHITE BLOOD COUNT 8.23 K/uL (4.8-10.8)
--- NOTE | 2016-09-24 00:11 | EMERGENCY ROOM VISIT NOTE ---
History Report prepared by Kiersten: Miguel Metcalf Under the Supervision of: Dr. Kavita Munoz D.O. First contact with patient: 22:59 Chief Complaint: ILLNESS Stated Complaint: DENTAL PAIN Nursing Triage Summary: pt has bad teeth and they have been hurting for past couple days, friend brought pt in History of Present Illness The patient is a 76 year old male who presents to the Emergency Room with complaints of persistent mouth pain that has been worsening for the past few days. The patient has a history of dental problems. Four years ago, the patient states that all his lower teeth started breaking off at the gum line. He presented to the dentist and they wouldn't remove the teeth because he had too many conflicting health issues. The patient was given IV antibiotics and it seemed to fix the issue and help the pain for two years. Two years ago, the patient started having the same pain. The patient was given Amoxicillin and notes that it did not help resolve his symptoms and caused him to have diarrhea. The patient was given IV antibiotics again and it helped his symptoms again. A few days ago, the patient's teeth started hurting again. His dentist prescribed Amoxicillin again and the patient complains of diarrhea. The patient states that his dental symptoms are the same and he wants the IV antibiotics again to help his symptoms. He denies abdominal pain at this time. Source of History: patient Onset: the past few days Position: teeth Timing: other (persistent) Associated Symptoms: + diarrhea, No abdominal pain Note: Other associated symptoms: dental pain Review of Systems See HPI for pertinent positives & negatives. A total of 10 systems reviewed and were otherwise negative. Past Medical & Surgical Medical Problems: (1) AICD (automatic cardioverter/defibrillator) present (2) Anxiety (3) BPH (benign prostatic hypertrophy) (4) Dyslipidemia (5) GERD (gastroesophageal reflux disease) (6) Gout (7) HTN (hypertension) (8) ICD (implantable cardioverter-defibrillator) discharge (9) Idiopathic cardiomyopathy (10) Nonobstructive coronary atherosclerosis (11) PVT (paroxysmal ventricular tachycardia) (12) Sleep apnea Surgical Problems: (1) H/o CT guided needle biopsy (2) History of implantable cardioverter-defibrillator (ICD) placement (3) S/P appendectomy (4) S/p EGD (5) S/P laparoscopic cholecystectomy Family History FH: cancer FATHER Social History Smoking Status: Never Smoker Alcohol Use: none Drug Use: none Marital Status: single Housing Status: lives alone Occupation Status: retired Current/Historical Medications Scheduled Allopurinol (Zyloprim), 1.5 TAB PO DAILY Amoxicillin (Amoxil), 500 MG PO BID Amoxicillin & Pot Clavulanate (Augmentin 875-125 mg), 875 MG PO BID Furosemide (Furosemide), 1 TAB PO DAILY Lisinopril (Zestril), 20 MG PO DAILY Magnesium Oxide (Mag-Ox), 200 MG PO BID Metoprolol Succinate (Toprol Xl), 25 MG PO DAILY Mexiletine Hcl (Mexiletine Hcl), 150 MG PO Q12H Omeprazole (Omeprazole), 10 MG PO BID Potassium Chloride (Potassium Chloride Cr), 0.5 TAB PO BID Sotalol Hcl (Sotalol Hcl), 1 TAB PO QID Scheduled PRN Aspirin (Aspirin), 2 TAB PO QID PRN for Shoulder Pain Lorazepam (Lorazepam), 1 MG PO Q8 PRN for Anxiety Oxycodone/Acetaminophen 5MG/325MG (Percocet 5MG/325MG), 1-2 TABLETS PO Q4H PRN for Pain Polyethylene Glycol 3350 (Bulk (Polyethylene Glycol 3350), 1 TBS PO DAILY PRN for Constipation Allergies Coded Allergies: Amiodarone (Verified Allergy, Intermediate, "IODINE OVERDOSE SYMPTOMS, ) Physical Exam Vital Signs Date Time Temp Pulse Resp B/P Pulse Ox O2 Delivery O2 Flow Rate FiO2 09/24/16 01:26 69 16 131/79 93 09/24/16 00:38 72 20 128/77 96 Nasal Cannula 2.0 09/23/16 23:54 74 20 159/87 97 Room Air 09/23/16 22:37 36.6 81 20 143/87 97 Room Air Physical Exam HEENT: Head - normocephalic and atraumatic Pupils are equal, round, and reactive to light. Extraocular eye muscles are intact, and sclera are anicteric. Nose - moist nasal mucosa without discharge. Mouth - moist buccal mucosa. Oropharynx: significant gingival erythema and edema of the entire lower alveolar ridge with multiple fractured teeth. Neck: Supple; significant anterior cervical lymphadenopathy that is painful to touch. Heart: Regular rate and rhythm. There is a normal S1 and S2 with no murmurs, clicks, or gallops appreciated. Lungs: Clear to auscultation bilaterally with no wheezes, rales, or rhonchi. Abdomen: Soft, completely nontender, nondistended, with good bowel sounds. There are no palpable pulsatile masses or hepatosplenomegaly. There is no guarding, rigidity, or rebound noted. Extremities: No evidence of cyanosis, clubbing, or edema. There are easily palpable peripheral pulses. Skin: warm and dry with good turgor and no rashes. Medical Decision & Procedures Laboratory Results 09/23/16 23:47 Red Blood Count 5.82, Mean Corpuscular Volume 81.3, Mean Corpuscular Hemoglobin 28.0, Mean Corpuscular Hemoglobin Concent 34.5, Mean Platelet Volume 8.3, Neutrophils (%) (Auto) 71.7, Lymphocytes (%) (Auto) 11.7, Monocytes (%) (Auto) 15.6, Eosinophils (%) (Auto) 0.7, Basophils (%) (Auto) 0.2, Neutrophils # (Auto ) 5.90, Lymphocytes # (Auto) 0.96, Monocytes # (Auto) 1.28, Eosinophils # (Auto ) 0.06, Basophils # (Auto) 0.02 09/23/16 23:47 Test 09/23/16 23:47 White Blood Count 8.23 K/uL (4.8-10.8) Red Blood Count 5.82 M/uL (4.7-6.1) Hemoglobin 16.3 g/dL (14.0-18.0) Hematocrit 47.3 % (42-52) Mean Corpuscular Volume 81.3 fL (80-100) Mean Corpuscular Hemoglobin 28.0 pg (25-34) Mean Corpuscular Hemoglobin Concent 34.5 g/dl (32-36) Platelet Count 223 K/uL (130-400) Mean Platelet Volume 8.3 fL (7.4-10.4) Neutrophils (%) (Auto) 71.7 % Lymphocytes (%) (Auto) 11.7 % Monocytes (%) (Auto) 15.6 % Eosinophils (%) (Auto) 0.7 % Basophils (%) (Auto) 0.2 % Neutrophils # (Auto) 5.90 K/uL (1.4-6.5) Lymphocytes # (Auto) 0.96 K/uL (1.2-3.4) Monocytes # (Auto) 1.28 K/uL (0.11-0.59) Eosinophils # (Auto) 0.06 K/uL (0-0.5) Basophils # (Auto) 0.02 K/uL (0-0.2) RDW Standard Deviation 46.8 fL (36.4-46.3) RDW Coefficient of Variation 15.7 % (11.5-14.5) Immature Granulocyte % (Auto) 0.1 % Immature Granulocyte # (Auto) 0.01 K/uL (0.00-0.02) Anion Gap 8.0 mmol/L (3-11) Est Creatinine Clear Calc Drug Dose 78.8 ml/min Estimated GFR () 75.7 Estimated GFR (Non- 65.3 BUN/Creatinine Ratio 17.9 (10-20) Calcium Level 8.8 mg/dl (8.5-10.1) Laboratory results per my review. Medications Administered Medications (Trade) Dose Ordered Sig/Floyd Route Start Time Stop Time Status Last Admin Dose Admin Sodium Chloride (Nss 500ml) 500 ml @ 999 mls/hr Q31M STAT IV 09/23/16 23:33 09/24/16 00:03 DC 09/23/16 23:50 999 MLS/HR Hydromorphone HCl (Dilaudid Inj) 2 mg NOW STAT IV 09/23/16 23:33 09/23/16 23:35 DC 09/23/16 23:50 2 MG Ketorolac Tromethamine 30 mg 30 mg NOW STAT IV 09/23/16 23:33 09/23/16 23:35 DC 09/23/16 23:49 30 MG Ampicillin Sodium/ Sulbactam Sodium/ Sodium Chloride (Unasyn Inj/Nss 100ml) 108 ml @ 200 mls/hr ONE ONCE IV 09/24/16 00:30 09/24/16 01:02 DC 09/24/16 00:37 200 MLS/HR Procedure Toradol Inj IV Dilaudid Inj IV NSS IV Ampicllin Sodium/ Sulbactam Sodium 3000 mg/ NSS IV ED Course 2331: Past medical records reviewed. The patient was evaluated in room C10. A complete history and physical exam was performed. An IV lock was initiated and labs were drawn as above. 2333: Ordered Toradol Inj 30 mg IV, Dilaudid Inj 2 mg IV, NSS 500 ml @ 999 mls/ hr IV. 0030: Ordered Ampicillin Sodium/ Sulbactam Sodium 3000 mg/ NSS 108 ml @ 200 mls/ hr IV. 0055: Upon reevaluation, the patient was resting comfortably. He feels much better after receiving pain medications and is receiving IV antibiotics now. 0110: I discussed findings and results with the patient. He verbalized agreement of the treatment plan. The patient was discharged home. Medical Decision The patient is a 76 year old male who presents to the ED with dental pain. Differential diagnosis includes dentalgia, dental abscess, or Uriel's angina. Labs reviewed by me: no leukocytosis, stable H&H, BUN 20, creatinine 1.1, glucose 102. I attest that I have personally reviewed the patient's current medication list. Patient was found to have an elevated blood pressure and was referred to their primary doctor for recheck and further treatment. The patient has recurrent episodes of dental infection and abscess as a result of having multiple fractured teeth. The patient was given IV Unasyn here in the emergency department as he describes previous episodes of dental infection which were significantly improved after receiving IV antibiotics. He will be switched from amoxicillin to Augmentin. I've asked him to follow-up with his dentist for referral to an oral surgeon. We did talk about the possibility of Uriel angina. He will return to the emergency department if he develops worsening symptoms. Impression Primary Impression: Dental infection Scribe Attestation The scribe's documentation has been prepared under my direction and personally reviewed by me in its entirety. I confirm that the note above accurately reflects all work, treatment, procedures, and medical decision making performed by me. Departure Information Dispostion Home / Self-Care Prescriptions Oxycodone/Acetaminophen 5MG/325MG (PERCOCET 5MG/325MG) Tab 1-2 TABLETS PO Q4H Y for Pain, #20 TAB Prov: Kavita Munoz D.O. 09/24/16 Amoxicillin & Pot Clavulanate (Augmentin 875-125 mg) 1 Tab Tab 875 MG PO BID, #20 TAB Prov: Kavita Munoz D.OLeander 09/24/16 Referrals Sulman,Ed A., D.O. (PCP) Forms HOME CARE DOCUMENTATION FORM, IMPORTANT VISIT INFORMATION, WORK / SCHOOL INSTRUCTIONS Patient Instructions Dental Abscess, My [facility] Additional Instructions Rest. Take Augmentin twice a day for next 10 days Stop the amoxil. Percocet - 1-2 tab.s every 4-6 hours for pain. Follow up with your dentist for referral for dental extractions
[2016-09-24 00:23] LABS: BUN/CREATININE RATIO 17.9 (10-20); CALCIUM 8.8 mg/dl (8.5-10.1); CREATININE 1.1 mg/dl (0.60-1.40); POTASSIUM 4.4 mmol/L (3.5-5.1)
[2016-09-24] MEDS ORDERED: AMPICILLIN/SULBACTAM SOD INJ 3,000 MG in SODIUM CHLORIDE 0.9% 100ML 100 ML IV ONE (00:30)
[2016-09-24] MEDS ORDERED: METO25TA3 PO (00:39)
[2016-09-24] MEDS ORDERED: OXYC-57 PO (01:11)
[2016-09-24] MEDS ORDERED: AMOX875T PO (01:11)
[2016-09-24 01:26] VITALS: BP 131/79; PULSE 69; O2SAT 93
== END 2016-09-24 01:28 | disposition home or self-care (01) ==
LOC: C.EDB 22:36 → C.EDC 09-24 01:28
DX: K04.7 Periapical abscess without sinus (principal); N40.0 Benign prostatic hyperplasia without lower urinary tract symptoms; F41.9 Anxiety disorder, unspecified; E78.5 Hyperlipidemia, unspecified; K21.9 Gastro-esophageal reflux disease without esophagitis; I10 Essential (primary) hypertension; M10.9 Gout, unspecified; G47.30 Sleep apnea, unspecified; I47.2 Ventricular tachycardia; Z95.810 Presence of automatic (implantable) cardiac defibrillator; Z80.9 Family history of malignant neoplasm, unspecified; Z79.899 Other long term (current) drug therapy

== ENCOUNTER 2017-02-12 10:01 | Emergency (ER) | payer OTHER ==
[~2017-02-12 10:01] MED LIST changes: +METO25TA3 PO; +OXYC-57 PO; -TPRSR25 PO
[2017-02-12 10:03] VITALS: Ht 185.4 cm
[2017-02-12] MEDS ORDERED: FAMOTIDINE IV INJ 20 MG in DEXTROSE 5% 100ML 100 ML IV STA (11:02)
[2017-02-12] MEDS ORDERED: GI COCKTAIL PO STA (11:02)
[2017-02-12] MEDS ORDERED: SODIUM CHLORIDE 0.9% 1000ML 1,000 ML IV STA (11:02)
[2017-02-12] MEDS ORDERED: LIDOCAINE HCL 2% VISC SOLN 20 ML UDC ONE (11:07)
[2017-02-12] MEDS ORDERED: ALUMINUM/MAGNESIUM SUSP 30 ML UDC ONE (11:07)
--- NOTE | 2017-02-12 11:07 | EMERGENCY ROOM VISIT NOTE ---
History Report prepared by Kiersten: Mariana Cuba Under the Supervision of: Dr. Dale Burks M.D. First contact with patient: 10:30 Chief Complaint: ABDOMINAL PAIN Stated Complaint: SEVERE STOMACH ACHE, VOMITING Nursing Triage Summary: stomach pains for the past couple of months. "The last time I called Dr See office they told me if I want anything done to come to the hospital." History of Present Illness The patient is a 76 year old white male with a past medical history of PVT, HTN , kidney stones, and a defibrillator in place who presents to the ED with a cc of intermittent lower abdominal pain beginning a couple months ago. Positive nausea, vomiting, indigestion, and abdominal burning. Negative chest pain, SOB, swelling, urinary symptoms, recent travel. The patient has had five episodes of vomiting since 2AM. The patient's indigestion and abdominal burning stared last night. The patient is on mexiletine. Source of History: patient Onset: a couple months ago Position: abdomen Timing: intermittent Associated Symptoms: + nausea, + vomiting, No chest pain, No SOB, No urinary symptoms Note: Pt notes indigestion, and abdominal burning Review of Systems See HPI for pertinent positives and negatives. A total of ten systems were reviewed and were otherwise negative. Past Medical & Surgical Medical Problems: (1) AICD (automatic cardioverter/defibrillator) present (2) Anxiety (3) BPH (benign prostatic hypertrophy) (4) Dyslipidemia (5) GERD (gastroesophageal reflux disease) (6) Gout (7) HTN (hypertension) (8) ICD (implantable cardioverter-defibrillator) discharge (9) Idiopathic cardiomyopathy (10) Nonobstructive coronary atherosclerosis (11) PVT (paroxysmal ventricular tachycardia) (12) Sleep apnea Surgical Problems: (1) H/o CT guided needle biopsy (2) History of implantable cardioverter-defibrillator (ICD) placement (3) S/P appendectomy (4) S/p EGD (5) S/P laparoscopic cholecystectomy Family History FH: cancer FATHER Social History Smoking Status: Never Smoker Alcohol Use: none Drug Use: none Marital Status: single Housing Status: lives alone Occupation Status: retired Current/Historical Medications Scheduled Allopurinol (Zyloprim), 1.5 TAB PO DAILY Amoxicillin & Pot Clavulanate (Augmentin 875-125 mg), 875 MG PO BID Famotidine (Pepcid), 1 TAB PO DAILY Lisinopril (Zestril), 20 MG PO DAILY Magnesium Oxide (Mag-Ox), 200 MG PO BID Metoprolol Succinate (Toprol Xl), 25 MG PO DAILY Mexiletine Hcl (Mexiletine Hcl), 150 MG PO Q12H Sotalol Hcl (Sotalol Hcl), 1 TAB PO QID Scheduled PRN Aspirin (Aspirin), 2 TAB PO QID PRN for Shoulder Pain Lorazepam (Lorazepam), 1 MG PO Q8 PRN for Anxiety Allergies Coded Allergies: Amiodarone (Verified Allergy, Intermediate, "IODINE OVERDOSE SYMPTOMS, ) Physical Exam Vital Signs Date Time Temp Pulse Resp B/P (MAP) Pulse Ox O2 Delivery O2 Flow Rate FiO2 02/12/17 13:06 67 18 165/81 95 Room Air 02/12/17 12:05 67 02/12/17 11:51 65 18 168/97 96 Room Air 02/12/17 10:03 36.5 65 18 138/92 96 Room Air Physical Exam GENERAL: Awake, alert, well-appearing, NAD HENT: Normocephalic, atraumatic. Right hearing aid in place. Poor dentition. EYES: Normal conjunctiva. Sclera non-icteric. NECK: Supple. No nuchal rigidity. FROM. RESPIRATORY: CTAB, no rhonchi, wheezing, crackles CARDIAC: RRR, no MRG ABDOMEN: Soft, NTND, BS+, Mild epigastric, RUQ and LUQ TTP. No suprapubic or lower abdominal tenderness. No CVA TTP. MSK: No chest wall TTP, no LE edema NEURO: GCS 15, CN 2-12 intact, moves all 4s on command SKIN: No rash or jaundice noted. Medical Decision & Procedures ER Provider Diagnostic Interpretation: Radiology results as stated below per my review and radiologist interpretation: SINGLE VIEW CHEST CLINICAL HISTORY: Generalized abdominal pain. FINDINGS: An AP, portable, upright chest radiographs are compared to study dated 07/29/2016. The examination is degraded by portable technique and patient rotation. A 2-lead cardiac AICD is unchanged in position and partially obscures the left upper chest. The heart is enlarged and there is atherosclerotic calcification of the thoracic aorta. The pulmonary vasculature is noncongested. Findings suggest emphysema. Chronic interstitial thickening is similar to previous. No airspace consolidation or large pleural effusion is identified. No pneumothorax is seen. The skeletal structures are osteopenic. Advanced arthritic change is noted in the shoulders. IMPRESSION: 1. Cardiomegaly and AICD. There is no radiographic evidence of congestive failure. 2. Suspect emphysema. No airspace consolidation or pleural effusion is identified. Electronically signed by: Ervin Aguilar M.D. CT SCAN OF THE ABDOMEN AND PELVIS WITH IV CONTRAST FINDINGS: Lung bases: The heart is enlarged and without pericardial effusion. The coronary arteries are densely calcified. Pacemaker leads are noted. A small hiatal hernia is identified. Chronic changes are seen at both lung bases. There are tiny calcified granulomas. No airspace consolidation or pleural effusion is seen. Liver: The contrast-enhanced liver is mildly enlarged measuring 18.5 cm in length. The liver demonstrates is otherwise normal in contour and attenuation. There is no intrahepatic biliary ductal dilatation. The hepatic veins and portal veins appear patent. Gallbladder: Surgically absent. Spleen: The spleen is enlarged, measuring 14.9 cm in length. Pancreas: The pancreas is moderately atrophic and grossly unremarkable. Adrenal glands: Unremarkable. Kidneys: The contrast-enhanced kidneys are atrophic and without hydronephrosis. The kidneys enhance symmetrically. Abdominal vasculature: The abdominal aorta is normal in course and caliber noting moderate to advanced atherosclerotic calcification. Bowel: There is no bowel obstruction. The duodenum is normal in configuration. There is a large duodenal diverticulum seen on image #172 which measures up to 5.4 cm. There is marked wall thickening and edema seen throughout the duodenum with associated periduodenal inflammation and fluid. Fluid tracks inferiorly along the retroperitoneal space. There is advanced colonic diverticulosis. There is wall thickening with pericolonic inflammation and fluid seen involving the sigmoid colon. The appearance is consistent with acute diverticulitis. There is no evidence of diverticular abscess. The appendix is not clearly identified. Peritoneum: There is no intraperitoneal free air or abdominal ascites. Lymphadenopathy: None. Pelvic viscera: The prostate gland is mildly enlarged and heterogeneous, measuring 5.5 cm in transverse diameter. The bladder is normal as visualized. There are bilateral fat-containing inguinal hernias. Skeletal structures: The skeletal structures are osteopenic. No lytic or blastic lesions are seen. There is moderate lumbosacral spondylosis. Soft tissues: There is induration identified within the subcutaneous fat in the right lower back, similar to prior examinations. This may be on a postoperative basis. A fat-containing posterior abdominal wall hernia is suggested at this site. IMPRESSION: 1. There is a large duodenal diverticulum, with significant wall thickening and edema seen throughout the duodenum. There is associated periduodenal inflammation and fluid. The appearance suggests a severe duodenitis or possibly duodenal diverticulitis. The length of involvement favors duodenitis. 2. Fluid tracks inferiorly along the retroperitoneal space from the inflamed duodenum. No organized fluid collection is seen to indicate abscess. No intraperitoneal free air is identified to suggest perforation. 3. There is also evidence of acute sigmoid diverticulitis. No diverticular abscess is seen. 4. Hepatosplenomegaly. 5. Cardiomegaly. 6. Additional findings as above. Electronically signed by: Ervin Aguilar M.D. Laboratory Results 02/12/17 11:30 Red Blood Count 5.98, Mean Corpuscular Volume 82.8, Mean Corpuscular Hemoglobin 29.1, Mean Corpuscular Hemoglobin Concent 35.2, Mean Platelet Volume 8.5, Neutrophils (%) (Auto) 75.2, Lymphocytes (%) (Auto) 12.0, Monocytes (%) (Auto) 11.2, Eosinophils (%) (Auto) 0.8, Basophils (%) (Auto) 0.5, Neutrophils # (Auto ) 5.51, Lymphocytes # (Auto) 0.88, Monocytes # (Auto) 0.82, Eosinophils # (Auto ) 0.06, Basophils # (Auto) 0.04 02/12/17 11:30 Test 02/12/17 11:30 White Blood Count 7.33 K/uL (4.8-10.8) Red Blood Count 5.98 M/uL (4.7-6.1) Hemoglobin 17.4 g/dL (14.0-18.0) Hematocrit 49.5 % (42-52) Mean Corpuscular Volume 82.8 fL (80-100) Mean Corpuscular Hemoglobin 29.1 pg (25-34) Mean Corpuscular Hemoglobin Concent 35.2 g/dl (32-36) Platelet Count 240 K/uL (130-400) Mean Platelet Volume 8.5 fL (7.4-10.4) Neutrophils (%) (Auto) 75.2 % Lymphocytes (%) (Auto) 12.0 % Monocytes (%) (Auto) 11.2 % Eosinophils (%) (Auto) 0.8 % Basophils (%) (Auto) 0.5 % Neutrophils # (Auto) 5.51 K/uL (1.4-6.5) Lymphocytes # (Auto) 0.88 K/uL (1.2-3.4) Monocytes # (Auto) 0.82 K/uL (0.11-0.59) Eosinophils # (Auto) 0.06 K/uL (0-0.5) Basophils # (Auto) 0.04 K/uL (0-0.2) RDW Standard Deviation 45.4 fL (36.4-46.3) RDW Coefficient of Variation 15.0 % (11.5-14.5) Immature Granulocyte % (Auto) 0.3 % Immature Granulocyte # (Auto) 0.02 K/uL (0.00-0.02) Anion Gap 9.0 mmol/L (3-11) Estimated GFR () 96.9 Estimated GFR (Non- 83.6 BUN/Creatinine Ratio 15.4 (10-20) Calcium Level 9.9 mg/dl (8.5-10.1) Magnesium Level 2.3 mg/dl (1.8-2.4) Total Bilirubin 0.8 mg/dl (0.2-1) Direct Bilirubin 0.1 mg/dl (0-0.2) Aspartate Amino Transf (AST/SGOT) 8 U/L (15-37) Alanine Aminotransferase (ALT/SGPT) 9 U/L (12-78) Alkaline Phosphatase 124 U/L (45-117) Troponin I < 0.015 ng/ml (0-0.045) Total Protein 7.2 gm/dl (6.4-8.2) Albumin 3.8 gm/dl (3.4-5.0) Lipase 130 U/L (73-393) Laboratory results reviewed by me Medications Administered Medications (Trade) Dose Ordered Sig/Floyd Route Start Time Stop Time Status Last Admin Dose Admin Sodium Chloride 1,000 ml @ 125 mls/hr Q8H STAT IV 02/12/17 11:02 02/12/17 19:01 02/12/17 11:02 125 MLS/HR Famotidine 20 mg/ Dextrose 102 ml @ 200 mls/hr ONE STAT IV 02/12/17 11:02 02/12/17 11:32 DC 02/12/17 11:38 200 MLS/HR Al Hydroxide/Mg Hydroxide (Maalox Susp) 30 ml STK-MED ONCE .ROUTE 02/12/17 11:07 02/12/17 11:08 DC 02/12/17 11:37 30 ML Lidocaine HCl (Viscous Lidocaine 2% Soln) 20 ml STK-MED ONCE .ROUTE 02/12/17 11:07 02/12/17 11:08 DC 02/12/17 11:38 20 ML ED Course 1041: The patient was evaluated in room B11B. A complete history and physical exam was performed. 1325: I updated the patient with his test results. 1340: I reevaluated the patient. Discussed results and discharge instructions: He verbalized understanding and agreement. The patient is ready for discharge. Medical Decision The patient is a 76 year old white male with a past medical history of PVT, HTN , kidney stones, and has a defibrillator who presents to the ED with a cc of intermittent lower abdominal pain beginning a couple months ago. Positive nausea , vomiting, indigestion, and abdominal burning. Negative chest pain, SOB, swelling, urinary symptoms, recent travel. Differential diagnosis: Etiologies such as appendicitis, diverticulitis, PUD, biliary pathology, UTI, pancreatitis, obstruction, mesenteric ischemia, aortic pathology, infections, inflammatory bowel disease, renal colic, as well as others were entertained. Patient was seen and evaluated the bedside. Patient does have a prior history of AICD as well as being on antiarrhythmics who presents with the chief complaint of some burning type pain that runs up into the mouth with some bitter taste. Patient denies any chest pain or shortness of breath. Patient states he's been having bowel movements. Patient did have blood work EKG troponin and CT of the abdomen pelvis completed. Patient's EKG nonischemic. Patient troponin negative. Altace lipase normal. Patient white count within normal limits. Patient did have a CT the abdomen pelvis which shows some duodenitis and diverticulitis. Given the patient's side effect profile of his antiarrhythmics he was given Augmentin. Patient was given recommendations on helping with reflux type symptoms and was told to start taking his Zantac. Patient was also given referral to gastroenterology. Patient was able tolerate by mouth was feeling improved. Given normal WBC and no other abnormalities and able to tolerated PO patient deemed suitable for outpatient trx. Given Augmentin and told to try yogurt or probiotic. Patient was given strict follow- up, discharge, and return precautions and was safely discharged home. Medication Reconcilliation Current Medication List: was personally reviewed by me Blood Pressure Screening Patient's blood pressure: Elevated blood pressure Blood pressure disposition: Elevated BP felt to be situational Impression Primary Impression: Duodenitis Additional Impression: Diverticulitis Scribe Attestation The scribe's documentation has been prepared under my direction and personally reviewed by me in its entirety. I confirm that the note above accurately reflects all work, treatment, procedures, and medical decision making performed by me. Departure Information Dispostion Home / Self-Care Prescriptions Famotidine (PEPCID) 40 Mg Tab 1 TAB PO DAILY for 30 Days, #30 TAB 3 Refills Prov: Dale Burks M.D. 02/12/17 Referrals Ed Garcia D.O. (PCP) Dylan Lara D.O. Forms Call Back Authorization, HOME CARE DOCUMENTATION FORM, IMPORTANT VISIT INFORMATION Patient Instructions Diverticulitis Dc, ED GERD, My [facility] Additional Instructions Please return to the emergency department if you have worsening or recurrent symptoms not amenable to at-home treatment. Please call for a follow-up appointment with her primary care physician. Please take your medications as prescribed. If you have other concerns and/or complaints please feel free to also call your primary care physician's office or return the ED for further evaluation, management, and treatment. You were found to have an elevated blood pressure today (>120 sytolic or >90 diastolic). Per medicare guidelines, you need to follow up with this blood pressure screening with your Primary Care Physician (PCP). For a new PCP call [phone]. You received narcotic or benzodiazepene medication while in the emergency room today. This is an addictive medication that may cause drowziness as well as constipation. Do not drive, operate heavy machinery, or drink alcohol under the influence of this medication. Try maalox and tums. Also take the Pepcid as prescribed as well as the antibiotics. You have been examined and treated today on an emergency basis only. This is not a substitute for, or an effort to provide, complete comprehensive medical care. It is impossible to recognize and treat all injuries or illnesses in a single emergency department visit. It is therefore important that you follow up closely with [facility]. Call as soon as possible for an appointment. Thank you for your time and consideration. I look forward to speaking with you again soon. Please don't hesitate to call us if you have any questions. Problem Qualifiers Additional Impression: Diverticulitis Diverticulitis site: large intestine Diverticulitis bleeding: unspecified bleeding status Diverticulitis complication: unspecified complication status Qualified Codes: K57.32 - Diverticulitis of large intestine without perforation or abscess without bleeding
[2017-02-12] MEDS ORDERED: OPTIRAY 320 IV PRN (11:15)
--- NOTE | 2017-02-12 11:42 | DIAGNOSTIC IMAGING REPORT ---
SINGLE VIEW CHEST CLINICAL HISTORY: Generalized abdominal pain. FINDINGS: An AP, portable, upright chest radiographs are compared to study dated 07/29/2016. The examination is degraded by portable technique and patient rotation. A 2-lead cardiac AICD is unchanged in position and partially obscures the left upper chest. The heart is enlarged and there is atherosclerotic calcification of the thoracic aorta. The pulmonary vasculature is noncongested. Findings suggest emphysema. Chronic interstitial thickening is similar to previous. No airspace consolidation or large pleural effusion is identified. No pneumothorax is seen. The skeletal structures are osteopenic. Advanced arthritic change is noted in the shoulders. IMPRESSION: 1. Cardiomegaly and AICD. There is no radiographic evidence of congestive failure. 2. Suspect emphysema. No airspace consolidation or pleural effusion is identified. Electronically signed by: Ervin Aguilar M.D. 02/12/2017 11:41 AM Dictated Date/Time: 02/12/2017 11:40 AM
[2017-02-12 11:54] LABS: BASO % 0.5 %; BASO ABS # 0.04 K/uL (0-0.2); COMPLETE YES; EOS % 0.8 %; HEMATOCRIT 49.5 % (42-52); IG% 0.3 %; LYMPH ABS # 0.88 K/uL (1.2-3.4); MEAN CELL VOLUME 82.8 fL (80-100); MEAN CORPUSCULAR HEMOGLOBIN 29.1 pg (25-34); MEAN CORPUSCULAR HGB CONC 35.2 g/dl (32-36); MEAN PLATELET VOLUME 8.5 fL (7.4-10.4); MONO % 11.2 %; NEUT % 75.2 %; PLATELET COUNT 240 K/uL (130-400); RED BLOOD COUNT 5.98 M/uL (4.7-6.1); WHITE BLOOD COUNT 7.33 K/uL (4.8-10.8)
[2017-02-12 12:08] LABS: ALT/SGPT 9 U/L (12-78); AST/SGOT 8 U/L (15-37); BLOOD UREA NITROGEN 14 mg/dl (7-18); BUN/CREATININE RATIO 15.4 (10-20); CALCIUM 9.9 mg/dl (8.5-10.1); CARBON DIOXIDE 29 mmol/L (21-32); CHLORIDE 103 mmol/L (98-107); CREATININE 0.89 mg/dl (0.60-1.40); GLUCOSE 104 mg/dl (70-99); MAGNESIUM 2.3 mg/dl (1.8-2.4); POTASSIUM 4.3 mmol/L (3.5-5.1); SODIUM 141 mmol/L (136-145)
[2017-02-12 12:13] LABS: ALKALINE PHOSPHATASE 124 U/L (45-117)
--- NOTE | 2017-02-12 13:01 | DIAGNOSTIC IMAGING REPORT ---
CT SCAN OF THE ABDOMEN AND PELVIS WITH IV CONTRAST CLINICAL HISTORY: Upper abdominal pain. Nausea and vomiting. COMPARISON STUDY: Abdominal CT dated 09/08/2015. TECHNIQUE: Following the IV administration of 93 cc of after 320, CT scan of the abdomen and pelvis is performed from the lung bases to the proximal femora. Images are reviewed in the axial, sagittal, and coronal planes. IV contrast was administered without complication. The examination is degraded by streak artifact from the patient's arms which could not be elevated above the abdomen as well as motion artifact. Automated dose control exposure was utilized. CT DOSE: 1770.82 mGy.cm FINDINGS: Lung bases: The heart is enlarged and without pericardial effusion. The coronary arteries are densely calcified. Pacemaker leads are noted. A small hiatal hernia is identified. Chronic changes are seen at both lung bases. There are tiny calcified granulomas. No airspace consolidation or pleural effusion is seen. Liver: The contrast-enhanced liver is mildly enlarged measuring 18.5 cm in length. The liver demonstrates is otherwise normal in contour and attenuation. There is no intrahepatic biliary ductal dilatation. The hepatic veins and portal veins appear patent. Gallbladder: Surgically absent. Spleen: The spleen is enlarged, measuring 14.9 cm in length. Pancreas: The pancreas is moderately atrophic and grossly unremarkable. Adrenal glands: Unremarkable. Kidneys: The contrast-enhanced kidneys are atrophic and without hydronephrosis. The kidneys enhance symmetrically. Abdominal vasculature: The abdominal aorta is normal in course and caliber noting moderate to advanced atherosclerotic calcification. Bowel: There is no bowel obstruction. The duodenum is normal in configuration. There is a large duodenal diverticulum seen on image #172 which measures up to 5.4 cm. There is marked wall thickening and edema seen throughout the duodenum with associated periduodenal inflammation and fluid. Fluid tracks inferiorly along the retroperitoneal space. There is advanced colonic diverticulosis. There is wall thickening with pericolonic inflammation and fluid seen involving the sigmoid colon. The appearance is consistent with acute diverticulitis. There is no evidence of diverticular abscess. The appendix is not clearly identified. Peritoneum: There is no intraperitoneal free air or abdominal ascites. Lymphadenopathy: None. Pelvic viscera: The prostate gland is mildly enlarged and heterogeneous, measuring 5.5 cm in transverse diameter. The bladder is normal as visualized. There are bilateral fat-containing inguinal hernias. Skeletal structures: The skeletal structures are osteopenic. No lytic or blastic lesions are seen. There is moderate lumbosacral spondylosis. Soft tissues: There is induration identified within the subcutaneous fat in the right lower back, similar to prior examinations. This may be on a postoperative basis. A fat-containing posterior abdominal wall hernia is suggested at this site. IMPRESSION: 1. There is a large duodenal diverticulum, with significant wall thickening and edema seen throughout the duodenum. There is associated periduodenal inflammation and fluid. The appearance suggests a severe duodenitis or possibly duodenal diverticulitis. The length of involvement favors duodenitis. 2. Fluid tracks inferiorly along the retroperitoneal space from the inflamed duodenum. No organized fluid collection is seen to indicate abscess. No intraperitoneal free air is identified to suggest perforation. 3. There is also evidence of acute sigmoid diverticulitis. No diverticular abscess is seen. 4. Hepatosplenomegaly. 5. Cardiomegaly. 6. Additional findings as above. Electronically signed by: Ervin Aguilar M.D. 02/12/2017 12:59 PM Dictated Date/Time: 02/12/2017 12:47 PM
[2017-02-12] MEDS ORDERED: AMOXICILLIN/CLAVULANATE TAB 875 MG TAB PO ONE (13:30)
[2017-02-12] MEDS ORDERED: FAMO40TA6 PO (13:45)
[2017-02-12] MEDS ORDERED: AMOX875T PO (13:45)
[2017-02-12 13:55] VITALS: BP 167/81; PULSE 67; TEMP 36.7; O2SAT 95
== END 2017-02-12 14:19 | disposition home or self-care (01) ==
LOC: C.EDB 10:02
DX: K29.80 Duodenitis without bleeding (principal); K57.32 Diverticulitis of large intestine without perforation or abscess without bleeding; I10 Essential (primary) hypertension; Z87.442 Personal history of urinary calculi; Z95.810 Presence of automatic (implantable) cardiac defibrillator; F41.9 Anxiety disorder, unspecified; N40.0 Benign prostatic hyperplasia without lower urinary tract symptoms; E78.5 Hyperlipidemia, unspecified; K21.9 Gastro-esophageal reflux disease without esophagitis; M10.9 Gout, unspecified; I42.9 Cardiomyopathy, unspecified; I25.10 Atherosclerotic heart disease of native coronary artery without angina pectoris; I47.2 Ventricular tachycardia; G47.30 Sleep apnea, unspecified; Z90.49 Acquired absence of other specified parts of digestive tract; Z80.9 Family history of malignant neoplasm, unspecified; Z79.899 Other long term (current) drug therapy

== ENCOUNTER 2017-05-31 01:20 | Emergency (ER) | payer OTHER ==
[~2017-05-31] VITALS: Ht 193 cm; Wt 100.5 kg
[~2017-05-31 01:20] MED LIST changes: -AMOX500C3 PO; +FAMO40TA6 PO; -LSX40 PO; -OMEP20TA PO; -OXYC-57 PO; -POLY1POW2 PO; -POTA10TA30 PO
[2017-05-31 01:24] VITALS: TEMP 36.7; Ht 193 cm; Wt 100.5 kg
[2017-05-31] MEDS ORDERED: AMOXICIL/CLAVU 875MG HOME PACK PO ONE (02:00)
[2017-05-31] MEDS ORDERED: OXYC1TAB3 PO (02:00)
[2017-05-31] MEDS ORDERED: OXYCODONE IR HOME PACK PO ONE (02:00)
[2017-05-31] MEDS ORDERED: AMOX875T PO (02:00)
[2017-05-31] MEDS ORDERED: LISI20TA3 PO (02:08)
[2017-05-31] MEDS ORDERED: AMOX1TAB42 PO (02:09)
[2017-05-31 02:13] VITALS: BP 133/60; PULSE 78; O2SAT 99
--- NOTE | 2017-06-01 07:18 | EMERGENCY ROOM VISIT NOTE ---
ED Visit Note First contact with patient: 01:45 CHIEF COMPLAINT: Toothache HISTORY OF PRESENT ILLNESS: This 77 year old male patient presented to the emergency department with a progressive toothache for past 2-3 days. The patient believes it is coming from his left upper teeth. The pain is now steady and severe and radiates to the face. The patient has a history of chronic dental issues. He has seen multiple dentists and oral surgeons for possible extraction of severely decayed teeth. Evidently the patient has a cardiac history and is not felt to be a surgical candidate. Because of this he will have occasional infections of his teeth, and he believes this is what is occurring today. He has not had fever or chills. He states cold water is helping with some of his symptoms. He is without chest pain or shortness of breath. REVIEW OF SYSTEMS: A 6 system review of systems was completed with positives and pertinent negatives listed in the HPI. ALLERGIES: Amiodarone MEDICATIONS: See EMR PMH: See EMR SOCIAL HISTORY: Lives with family white male PHYSICAL EXAM: Vitals are noted on the nurse's note and reviewed by myself. Vital signs stable. GENERAL: Elderly male, in no acute distress, nondiaphoretic, well-developed well -nourished. Mouth: The patient has several very carious and severely decayed teeth throughout the oropharynx. No obvious abscesses noted. The airway is patent. There is no facial swelling, cervical or submandibular lymphadenopathy. The patient appears uncomfortable and in pain. The patient has overall poor dental hygiene. EARS: External auditory canals clear, tympanic membranes pearly lopez without erythema or effusion bilaterally. HEART: Regular rate and rhythm LUNG: Clear to auscultation bilateral ED COURSE: Physical exam and history were performed. Nursing notes and EMR were reviewed. The patient has had similar symptoms like this in the past. Review of his EMR shows that he does very well with Augmentin. The patient will be started on that medication today and given a short course of OxyIR. I will refer the patient back to his primary care physician for recheck as he seems to be a very poor candidate for dental procedures. The patient was to monitor for worsening symptoms invited back to the ER with any new, worsening, or concerning symptoms. Problem List Medical Problems: (1) AICD (automatic cardioverter/defibrillator) present Status: Chronic (2) Anxiety Status: Chronic (3) BPH (benign prostatic hypertrophy) Status: Chronic (4) Dyslipidemia Status: Chronic (5) GERD (gastroesophageal reflux disease) Status: Chronic (6) Gout Status: Chronic (7) HTN (hypertension) Status: Chronic (8) Idiopathic cardiomyopathy Permanent Comment: TTE 09/01/2013 - Normal LV systolic function without regional wall motion abnormality, EF 55-60%. Cath 08/18/2015 - moderate LV dysfunction, EF 40%, diffuse LV hypokinesis TTE 05/01/2016 - mild conc LVH, LVEF 60-65%, grade II diastolic dysfunction Status: Chronic (9) Nonobstructive coronary atherosclerosis Permanent Comment: cath 08/17/2005- Mild luminal irregularities of the RCA, Right dominant system, No angiographically hemodynamically significant stenosis Status: Chronic (10) PVT (paroxysmal ventricular tachycardia) Status: Chronic (11) Sleep apnea Status: Chronic Surgical Problems: (1) H/o CT guided needle biopsy Status: Chronic (2) History of implantable cardioverter-defibrillator (ICD) placement Status: Chronic (3) S/P appendectomy Status: Chronic (4) S/p EGD Status: Chronic (5) S/P laparoscopic cholecystectomy Status: Chronic Current/Historical Medications Scheduled Amoxicillin & Pot Clavulanate (Augmentin 875-125 mg), 1 TAB PO BID Amoxicillin & Pot Clavulanate (Amoxicillin/Clavulanate P), 1 TAB PO BID Famotidine (Pepcid), 1 TAB PO DAILY Lisinopril (Prinivil), 20 MG PO DAILY Magnesium Oxide (Mag-Ox), 400 MG PO DAILY Mexiletine Hcl (Mexiletine Hcl), 150 MG PO Q8 Oxycodone Immediate Rel Tab (Roxicodone Ir), 5 MG PO Q6H Sotalol Hcl (Sotalol Hcl), 1 TAB PO QID Scheduled PRN Aspirin (Aspirin), 2 TAB PO QID PRN for Shoulder Pain Lorazepam (Lorazepam), 1 MG PO Q8 PRN for Anxiety Allergies Coded Allergies: Amiodarone (Verified Allergy, Intermediate, "IODINE OVERDOSE SYMPTOMS, 05/31) Vital Signs Date Time Temp Pulse Resp B/P (MAP) Pulse Ox O2 Delivery O2 Flow Rate FiO2 05/31/17 02:13 78 16 133/60 99 05/31/17 01:24 36.7 68 18 148/95 97 Room Air Departure Information Impression Primary Impression: Pain, dental Dispostion Home / Self-Care Condition GOOD Prescriptions Oxycodone Immediate Rel Tab (ROXICODONE IR) 5 Mg Tab 5 MG PO Q6H for Pain, #12 TAB Initial treatment Prov: Ghassan Pond PA-C 05/31/17 Amoxicillin & Pot Clavulanate (Augmentin 875-125 mg) 1 Tab Tab 1 TAB PO BID for 9 Days, #18 TAB Prov: Ghassan Pond PA-C 05/31/17 Forms HOME CARE DOCUMENTATION FORM, IMPORTANT VISIT INFORMATION Patient Instructions My [facility] Additional Instructions You were seen and evaluated today on an emergency basis only. This is not a substitute for, or an effort to provide, complete comprehensive medical care. It is not possible to recognize and treat all injuries or illnesses in a single emergency department visit. For this reason it is recommended that you followup with your primary care physician in the next 1-2 days for recheck. Amoxicillin Clavulanate (Augmentin) 875mg: Take one pill twice daily for 10 total days for your infection. All antibiotics can cause diarrhea. If this occurs and you feel worse or it does not resolve in 1-2 days follow up with your doctor or return to the Emergency Department as this could be signs of serious underlying problems. Any medication can cause an allergic reaction, stop the pills immediately and return to the ER for rash, hives, breathing difficulties, or swelling. Oxycodone (OxyIR) 5mg: Take ONE pill every SIX hours for breakthrough pain. Avoid alcohol, operating machinery or dangerous equipment, working on ladders or roofs, DRIVING, or situations where being under the influence may be dangerous. It is recommended to use an [id number] stool softener such as Colace, 100mg twice daily while taking this medication to avoid constipation. You are welcome to return to the emergency department anytime with new, worsening, or concerning symptoms.
== END 2017-05-31 02:13 | disposition home or self-care (01) ==
LOC: C.EDB 01:22
DX: K08.89 Other specified disorders of teeth and supporting structures (principal); F41.9 Anxiety disorder, unspecified; N40.0 Benign prostatic hyperplasia without lower urinary tract symptoms; E78.5 Hyperlipidemia, unspecified; K21.9 Gastro-esophageal reflux disease without esophagitis; I10 Essential (primary) hypertension; M10.9 Gout, unspecified; I42.9 Cardiomyopathy, unspecified; I25.10 Atherosclerotic heart disease of native coronary artery without angina pectoris; I47.2 Ventricular tachycardia; G47.30 Sleep apnea, unspecified

== ENCOUNTER 2017-08-26 16:45 | Inpatient (IN) | payer OTHER ==
[~2017-08-26] VITALS: Ht 193 cm; Wt 109.8 kg
[~2017-08-26 16:45] MED LIST changes: -ALLO300T80 PO; +AMOX1TAB42 PO; -ASPI325T45 PO; +LISI20TA3 PO; -LISI40TA PO; -LORA1TAB13 PO; -MAGN400T6 PO; -METO25TA3 PO; -MXT150 PO; +OXYC1TAB3 PO; -SOTA80TA PO
[2017-08-26 17:17] LABS: BASO % 0.8 %; BASO ABS # 0.04 K/uL (0-0.2); EOS % 2.8 %; EOS ABS # 0.15 K/uL (0-0.5); HEMATOCRIT 47.9 % (42-52); HEMOGLOBIN 16.5 g/dL (14.0-18.0); IG# 0.01 K/uL (0.00-0.02); LYMPH % 23.3 %; LYMPH ABS # 1.23 K/uL (1.2-3.4); MEAN CELL VOLUME 83.2 fL (80-100); MEAN CORPUSCULAR HEMOGLOBIN 28.6 pg (25-34); MEAN CORPUSCULAR HGB CONC 34.4 g/dl (32-36); MEAN PLATELET VOLUME 8.5 fL (7.4-10.4); MONO % 12.1 %; MONO ABS # 0.64 K/uL (0.11-0.59); NEUT % 60.8 %; PLATELET COUNT 183 K/uL (130-400); RED CELL DISTRIBUTION WIDTH CV 14.7 % (11.5-14.5); RED CELL DISTRIBUTION WIDTH SD 44.6 fL (36.4-46.3); WHITE BLOOD COUNT 5.27 K/uL (4.8-10.8)
[2017-08-26] MEDS ORDERED: FAMO40TA6 PO (17:17)
--- NOTE | 2017-08-26 17:34 | DIAGNOSTIC IMAGING REPORT ---
SINGLE VIEW CHEST CLINICAL HISTORY: Generalized weakness. FINDINGS: An AP, portable, upright chest radiographs are compared to study dated 02/12/2017. The examination is degraded by portable technique and patient rotation. A 2-lead cardiac AICD is unchanged in position and partially obscures the left mid chest. The heart is enlarged and there is atherosclerotic calcification of the thoracic aorta. There is pulmonary vascular congestion with evidence of mild interstitial edema. Small left pleural effusion is suggested. Or focal opacities are seen in the left lung base. Findings suggest emphysema. No pneumothorax is seen. The skeletal structures are osteopenic. Advanced arthritic change is noted in the shoulders. IMPRESSION: 1. Cardiomegaly and AICD. There is congestive failure with evidence of interstitial edema. 2. There is a small left pleural effusion. Left basilar opacities likely represent atelectasis. Correlate clinically for evidence of superimposed pneumonia. Electronically signed by: Ervin Aguilar M.D. 08/26/2017 5:32 PM Dictated Date/Time: 08/26/2017 5:30 PM
[2017-08-26 17:43] LABS: ALBUMIN 3.6 gm/dl (3.4-5.0); ALT/SGPT 11 U/L (12-78); AST/SGOT 13 U/L (15-37); BLOOD UREA NITROGEN 10 mg/dl (7-18); CALCIUM 8.5 mg/dl (8.5-10.1); CARBON DIOXIDE 30 mmol/L (21-32); CREATININE 0.91 mg/dl (0.60-1.40); GLUCOSE 88 mg/dl (70-99); POTASSIUM 4.1 mmol/L (3.5-5.1); SODIUM 138 mmol/L (136-145)
[2017-08-26 17:54] LABS: ALKALINE PHOSPHATASE 111 U/L (45-117); TOTAL PROTEIN 6.7 gm/dl (6.4-8.2)
--- NOTE | 2017-08-26 18:02 | DIAGNOSTIC IMAGING REPORT ---
CT SCAN OF THE BRAIN WITHOUT IV CONTRAST CLINICAL HISTORY: Generalized weakness. COMPARISON STUDY: CT of the brain dated 09/07/2015. TECHNIQUE: Unenhanced axial CT scan of the brain is performed from the vertex to the skull base. A dose lowering technique was utilized adhering to the principles of ALARA. CT DOSE: 691.05 mGy.cm FINDINGS: Brain parenchyma: There are age-related involutional changes noting moderate subcortical and periventricular microangiopathic change. There is no hemorrhage, mass effect, or evidence of acute territorial ischemia by CT criteria. Valle-white matter is preserved. No extra-axial fluid collection is seen. Ventricles, sulci, cisterns: Prominent secondary to involutional change. Intracranial vasculature: There is atherosclerotic calcification of the cavernous carotid and vertebral arteries. Calvarium: Unremarkable. Sinuses and mastoids: The visualized paranasal sinuses are clear. The mastoid air cells are well pneumatized. Orbits: The bony orbits are grossly intact. IMPRESSION: There is no hemorrhage, mass effect, or evidence of acute territorial ischemia by CT criteria. Electronically signed by: Ervin Aguilar M.D. 08/26/2017 6:01 PM Dictated Date/Time: 08/26/2017 5:59 PM
[2017-08-26] MEDS ORDERED: MXT150 PO (18:39)
--- NOTE | 2017-08-26 19:03 | History and Physical ---
History & Physical Date & Time of Service: Aug 26, 2017 at 19:03 . Chief Complaint: lightheadedness . Primary Care Physician: Ed Garcia D.OLeander . History of Present Illness Source: patient, clinic records, hospital records 77-year-old male followed by Dr. Garcia for Internal Medicine and Dr. Villareal at [facility] for Electrophysiology. History of ventricular tachycardia and other problems noted below. ICD initially placed in 2006. Has had several episodes of appropriate shocks over the years. Last [facility] hospitalization was 05/01/16 for VTE with ICD discharges. Medications were adjusted. Admitted to [facility] on 07/30/16 with recurrent VT with ICD discharges. EP study performed at [facility] on 08/16/16; there was no inducible tachycardia. He is allergic or intolerant to amiodarone. Current antiarrhythmic medications are mexiletine 150 mg BID and sotalol 80 mg QID. He was tried on mexiletine 150 mg TID in the past, but dose was reduced because of side effects. Experienced several episodes of lightheadedness/near syncope over the last 2 days. He has noted some palpitations. No discharge of ICD. No chest pain, dyspnea, dependent edema. Came to ED for evaluation. Interrogation of ICD demonstrated 7 episodes of ventricular tachycardia over past 48 hours, terminated by overdrive pacing, no discharge of ICD. Patient has been taking his medications diligently as prescribed. . Past Medical/Surgical History Chronic and Resolved Medical Problems: (1) AICD (automatic cardioverter/defibrillator) present Status: Chronic (2) Anxiety Status: Chronic (3) BPH (benign prostatic hypertrophy) Status: Chronic (4) Dyslipidemia Status: Chronic (5) GERD (gastroesophageal reflux disease) Status: Chronic (6) Gout Status: Chronic (7) HTN (hypertension) Status: Chronic (8) Idiopathic cardiomyopathy Permanent Comment: TTE 09/01/2013 - Normal LV systolic function without regional wall motion abnormality, EF 55-60%. Cath 08/18/2015 - moderate LV dysfunction, EF 40%, diffuse LV hypokinesis TTE 05/01/2016 - mild conc LVH, LVEF 60-65%, grade II diastolic dysfunction Status: Chronic (9) Nonobstructive coronary atherosclerosis Permanent Comment: cath 08/17/2005- Mild luminal irregularities of the RCA, Right dominant system, No angiographically hemodynamically significant stenosis Status: Chronic (10) PVT (paroxysmal ventricular tachycardia) Status: Chronic (11) Sleep apnea Status: Chronic Surgical Problems: (1) H/o CT guided needle biopsy Status: Chronic (2) History of implantable cardioverter-defibrillator (ICD) placement Status: Chronic (3) S/P appendectomy Status: Chronic (4) S/p EGD Status: Chronic (5) S/P laparoscopic cholecystectomy Status: Chronic . Family History FH: cancer FATHER Social History Smoking Status: Never Smoker Drug Use: none Marital Status: single Housing status: lives alone Occupational Status: retired Immunizations History of Influenza Vaccine: Yes Influenza Vaccine Date: Feb 01, 2012 History of Tetanus Vaccine?: Yes Tetanus Immunization Date: Jun 27, 2009 History of Pneumococcal: Yes Pneumococcal Date: Nov 01, 2010 History of Hepatitis B Vaccine: Unknown Allergies Coded Allergies: Amiodarone (Verified Allergy, Intermediate, "IODINE OVERDOSE SYMPTOMS, 05/31) Home Medications Scheduled Lisinopril (Prinivil), 20 MG PO DAILY Magnesium Oxide (Mag-Ox), 200 MG PO BID Mexiletine Hcl (Mexiletine Hcl), 150 MG PO BID Sotalol Hcl (Sotalol Hcl), 1 TAB PO QID Scheduled PRN Aspirin (Ecotrin Regular Strength), 650 MG PO BID PRN for Pain Furosemide (Furosemide), 40 MG PO DAILY PRN for edema Lorazepam (Lorazepam), 1 MG PO Q8 PRN for Anxiety Review of Systems CONSTITUTIONAL no fever no weight loss EYES no acute visual changes EARS, NOSE, MOUTH, AND THROAT + hearing loss CARDIOVASCULAR as noted above in HPI RESPIRATORY no cough no dyspnea GASTROINTESTINAL no nausea or vomiting no diarrhea no constipation no melena or hematochezia GENITOURINARY + hesitancy and frequency no dysuria no hematuria MUSCULOSKELETAL + shoulder pain INTEGUMENTARY no rash no new / changing lesions NEUROLOGIC no headaches no focal neurologic symptoms PSYCHIATRIC + anxiety ENDOCRINE no polyuria or polydipsia HEMATOLOGIC / LYMPHATIC bruises easily . Physical Exam Vital Signs Date Time Temp Pulse Resp B/P (MAP) Pulse Ox O2 Delivery O2 Flow Rate FiO2 08/26/17 18:04 68 22 173/107 97 Room Air 170/103 155/94 08/26/17 17:31 62 08/26/17 17:29 62 08/26/17 17:22 61 08/26/17 17:13 72 08/26/17 17:09 98 Room Air 08/26/17 16:51 36.7 64 20 151/88 96 Room Air CONSTITUTIONAL vital signs as noted above well-developed, well-nourished, no acute distress EYES conjunctivae clear; lids normal pupils equal and reactive to light EARS, NOSE, MOUTH AND THROAT external inspection of ears and nose unremarkable hearing impaired, wearing hearing aid edentulous oropharynx clear NECK no masses; trachea midline thyroid normal RESPIRATORY normal respiratory effort; no respiratory distress clear to percussion clear to auscultation CARDIOVASCULAR regular rate and rhythm no murmur, gallop, or rub appreciated no JVD carotid arteries 2/2 abdominal aorta not palpable no pretibial edema GASTROINTESTINAL normal bowel sounds, soft, nontender; no palpable masses no hepatomegaly or splenomegaly appreciated LYMPHATIC no cervical adenopathy MUSCULOSKELETAL no cyanosis; no digital clubbing no calf tenderness motor strength extremities grossly intact SKIN few ecchymoses; no rash warm and dry NEUROLOGIC PERRL, EOMI, no facial palsy, no dysarthria, tongue midline patellar DTR's 1/2 PSYCHIATRIC oriented to person, place, time mood and affect appropriate . Diagnostics Laboratory Results Results Past 24 Hours Test 08/26/17 17:07 08/26/17 18:10 Range/Units White Blood Count 5.27 4.8-10.8 K/uL Red Blood Count 5.76 4.7-6.1 M/uL Hemoglobin 16.5 14.0-18.0 g/dL Hematocrit 47.9 42-52 % Mean Corpuscular Volume 83.2 80-100 fL Mean Corpuscular Hemoglobin 28.6 25-34 pg Mean Corpuscular Hemoglobin Concent 34.4 32-36 g/dl Platelet Count 183 130-400 K/uL Mean Platelet Volume 8.5 7.4-10.4 fL Neutrophils (%) (Auto) 60.8 % Lymphocytes (%) (Auto) 23.3 % Monocytes (%) (Auto) 12.1 % Eosinophils (%) (Auto) 2.8 % Basophils (%) (Auto) 0.8 % Neutrophils # (Auto) 3.20 1.4-6.5 K/uL Lymphocytes # (Auto) 1.23 1.2-3.4 K/uL Monocytes # (Auto) 0.64 0.11-0.59 K/uL Eosinophils # (Auto) 0.15 0-0.5 K/uL Basophils # (Auto) 0.04 0-0.2 K/uL RDW Standard Deviation 44.6 36.4-46.3 fL RDW Coefficient of Variation 14.7 11.5-14.5 % Immature Granulocyte % (Auto) 0.2 % Immature Granulocyte # (Auto) 0.01 0.00-0.02 K/uL Prothrombin Time 10.6 9.0-12.0 SECONDS Prothromb Time International Ratio 1.0 0.9-1.1 Activated Partial Thromboplast Time 28.0 21.0-31.0 SECONDS Partial Thromboplastin Ratio 1.1 Sodium Level 138 136-145 mmol/L Potassium Level 4.1 3.5-5.1 mmol/L Chloride Level 106 98-107 mmol/L Carbon Dioxide Level 30 21-32 mmol/L Anion Gap 2.0 3-11 mmol/L Blood Urea Nitrogen 10 7-18 mg/dl Creatinine 0.91 0.60-1.40 mg/dl Estimated GFR () 94.5 Estimated GFR (Non- 81.6 BUN/Creatinine Ratio 10.9 10-20 Random Glucose 88 70-99 mg/dl Calcium Level 8.5 8.5-10.1 mg/dl Magnesium Level 2.3 1.8-2.4 mg/dl Total Bilirubin 0.5 0.2-1 mg/dl Direct Bilirubin 0.1 0-0.2 mg/dl Aspartate Amino Transf (AST/SGOT) 13 15-37 U/L Alanine Aminotransferase (ALT/SGPT) 11 12-78 U/L Alkaline Phosphatase 111 45-117 U/L Troponin I < 0.015 0-0.045 ng/ml Pro-B-Type Natriuretic Peptide 1847 0-1800 pg/ml Total Protein 6.7 6.4-8.2 gm/dl Albumin 3.6 3.4-5.0 gm/dl Thyroid Stimulating Hormone (TSH) 1.780 0.300-4.500 uIu/ml Urine Color YELLOW Urine Appearance CLEAR CLEAR Urine pH 5.5 4.5-7.5 Urine Specific Paia 1.020 1.000-1.030 Urine Protein NEG NEG Urine Glucose (UA) NEG NEG Urine Ketones NEG NEG Urine Occult Blood NEG NEG Urine Nitrite NEG NEG Urine Bilirubin NEG NEG Urine Urobilinogen NEG NEG Urine Leukocyte Esterase NEG NEG Diagnostic Radiology SINGLE VIEW CHEST FINDINGS: An AP, portable, upright chest radiographs are compared to study dated 02/12/2017. The examination is degraded by portable technique and patient rotation. A 2-lead cardiac AICD is unchanged in position and partially obscures the left mid chest. The heart is enlarged and there is atherosclerotic calcification of the thoracic aorta. There is pulmonary vascular congestion with evidence of mild interstitial edema. Small left pleural effusion is suggested. Or focal opacities are seen in the left lung base. Findings suggest emphysema. No pneumothorax is seen. The skeletal structures are osteopenic. Advanced arthritic change is noted in the shoulders. IMPRESSION: 1. Cardiomegaly and AICD. There is congestive failure with evidence of interstitial edema. 2. There is a small left pleural effusion. Left basilar opacities likely represent atelectasis. Correlate clinically for evidence of superimposed pneumonia. Electronically signed by: Ervin Aguilar M.D. 08/26/2017 5:32 PM Dictated Date/Time: 08/26/2017 5:[address] SCAN OF THE BRAIN WITHOUT IV CONTRAST FINDINGS: Brain parenchyma: There are age-related involutional changes noting moderate subcortical and periventricular microangiopathic change. There is no hemorrhage, mass effect, or evidence of acute territorial ischemia by CT criteria. Valle-white matter is preserved. No extra-axial fluid collection is seen. Ventricles, sulci, cisterns: Prominent secondary to involutional change. Intracranial vasculature: There is atherosclerotic calcification of the cavernous carotid and vertebral arteries. Calvarium: Unremarkable. Sinuses and mastoids: The visualized paranasal sinuses are clear. The mastoid air cells are well pneumatized. Orbits: The bony orbits are grossly intact. IMPRESSION: There is no hemorrhage, mass effect, or evidence of acute territorial ischemia by CT criteria. Electronically signed by: Ervin Aguilar M.D. 08/26/2017 6:01 PM Dictated Date/Time: 08/26/2017 5:59 PM . EKG EKG performed at 17:26 reviewed and demonstrated NSR at 66 / minute, PAC's, no acute ST or T-wave abnormalities. . Impression Assessment and Plan VENTRICULAR TACHYCARDIA Recurrent ventricular tachycardia, terminated with overdrive pacing. No discharge of ICD. Potassium and magnesium normal. Compliant with antiarrhythmic medications. Monitor on Telemetry Unit. Continue mexiletine and sotalol. Consult Cardiology. ? CHF Chest x-ray showed cardiomegaly and pulmonary vascular congestion. Not in overt heart failure per exam. Discuss management with Cardiology. HYPERTENSION Continue lisinopril and sotalol. VTE PROPHYLAXIS SQ enoxaparin. Ambulate. RESUSCITATION STATUS Discussed with patient. He has a living will. He would like resuscitation attempted in the event of a cardiopulmonary arrest if there is a reasonable chance of a meaningful recovery, but does not want prolonged extraordinary measures if prognosis is poor. Therefore, code status = "Level 1" (full resuscitation). DISPOSITION Admit to Telemetry Unit. Discharge disposition to be determined. Internal Medicine follow-up with Dr. Garcia. Electrophysiology follow-up with Dr. Villareal. . Resuscitation Status VTE Prophylaxis Will order VTE Prophylaxis: Yes
[2017-08-26 19:42] VITALS: O2SAT 98
[2017-08-26] MEDS ORDERED: ALLO300T2 PO (19:58)
[2017-08-26] MEDS ORDERED: LSX40 PO (19:58)
[2017-08-26] MEDS ORDERED: LORAZEPAM 1 MG TAB PO PRN (20:00)
[2017-08-26] MEDS ORDERED: SOTA80TA PO (20:17)
[2017-08-26] MEDS ORDERED: LORA1TAB13 PO (20:17)
[2017-08-26] MEDS ORDERED: ASPECOTC PO (20:17)
[2017-08-26] MEDS: PATIENT'S HEIGHT AND/OR WEIGHT NEEDED SCH (20:30)
[2017-08-26] MEDS ORDERED: MEXILETINE HCL 150 MG CAP PO SCH (21:00)
[2017-08-26] MEDS ORDERED: SOTALOL HCL 80 MG TAB PO SCH (21:00)
[2017-08-26] MEDS ORDERED: ASPI-427 PO (21:09)
[2017-08-26 21:10] VITALS: BP 185/102; PULSE 65; TEMP 36.8; Ht 193 cm; Wt 109.8 kg
[2017-08-26] MEDS: MEXILETINE HCL 150 MG CAP PO SCH (21:55)
[2017-08-26] MEDS ORDERED: MAGN400T6 PO (22:20)
--- NOTE | 2017-08-26 22:49 | EMERGENCY ROOM VISIT NOTE ---
History Report prepared by Kiersten: Breezy Antony Under the Supervision of: Dr. Dixon Samson D.O. First contact with patient: 16:56 Chief Complaint: DIZZY Stated Complaint: DIZZINESS, NUMB IN ARMS, FAINTING SPELLS History of Present Illness The patient is a 77 year old male who presents to the Emergency Room with complaints of multiple syncopal episodes that began yesterday. The patient states that he has passed out 3 or 4 times between yesterday and today. He notes that one of the episodes occurred when he was up and moving around, and the other have occurred while he was simply sitting. The patient adds that before he passes out he feels "lightheaded" and nauseous. He also feels some weakness and "tingling" in his arms and fingers. He has had similar episodes in the past. The patient denies any headache, change in vision, fevers, chest pain , shortness of breath, vomiting, diarrhea, pain with urination, and melena. He has been told that he has a "very irregular heart beat" and has a defibrillator/ pacemaker in the left chest. Source of History: patient Onset: Yesterday Position: head Quality: other (syncopal episodes) Timing: other (3-4 episodes since yesterday) Associated Symptoms: + weakness (tingling in the arms and fingers), No headache, No chest pain, No SOB Review of Systems See HPI for pertinent positives & negatives. A total of 10 systems reviewed and were otherwise negative. Past Medical & Surgical Medical Problems: (1) AICD (automatic cardioverter/defibrillator) present (2) Anxiety (3) BPH (benign prostatic hypertrophy) (4) Dyslipidemia (5) GERD (gastroesophageal reflux disease) (6) Gout (7) HTN (hypertension) (8) ICD (implantable cardioverter-defibrillator) discharge (9) Idiopathic cardiomyopathy (10) Nonobstructive coronary atherosclerosis (11) PVT (paroxysmal ventricular tachycardia) (12) Sleep apnea Surgical Problems: (1) H/o CT guided needle biopsy (2) History of implantable cardioverter-defibrillator (ICD) placement (3) S/P appendectomy (4) S/p EGD (5) S/P laparoscopic cholecystectomy Family History FH: cancer FATHER Social History Smoking Status: Never Smoker Alcohol Use: none Drug Use: none Marital Status: single Housing Status: lives alone Occupation Status: retired Current/Historical Medications Scheduled Lisinopril (Prinivil), 20 MG PO DAILY Magnesium Oxide (Mag-Ox), 200 MG PO BID Mexiletine Hcl (Mexiletine Hcl), 150 MG PO BID Sotalol Hcl (Sotalol Hcl), 1 TAB PO QID Scheduled PRN Aspirin (Ecotrin Regular Strength), 650 MG PO BID PRN for Pain Furosemide (Furosemide), 40 MG PO DAILY PRN for edema Lorazepam (Lorazepam), 1 MG PO Q8 PRN for Anxiety Allergies Coded Allergies: Amiodarone (Verified Allergy, Intermediate, "IODINE OVERDOSE SYMPTOMS, 05/31) Physical Exam Vital Signs Date Time Temp Pulse Resp B/P (MAP) Pulse Ox O2 Delivery O2 Flow Rate FiO2 08/26/17 18:04 68 22 173/107 97 Room Air 170/103 155/94 08/26/17 17:31 62 08/26/17 17:29 62 08/26/17 17:22 61 08/26/17 17:13 72 08/26/17 17:09 98 Room Air 08/26/17 16:51 36.7 64 20 151/88 96 Room Air Physical Exam GENERAL: Sitting up in bed, alert, extremely hard of hearing, well appearing, well nourished, no distress, non-toxic EYE EXAM: normal conjunctiva. PERRL and EOM's intact. OROPHARYNX: no exudate, no erythema, lips, buccal mucosa, and tongue normal and mucous membranes are moist NECK: supple, no nuchal rigidity, no adenopathy, non-tender LUNGS: Clear to auscultation. Normal chest wall mechanics HEART: no murmurs, S1 normal and S2 normal ABDOMEN: abdomen soft, non-tender, normo-active bowel sounds, no masses, no rebound or guarding. BACK: Back is symmetrical on inspection and there is no deformity, no midline tenderness, no CVA tenderness. SKIN: no rashes and no bruising UPPER EXTREMITIES: upper extremities are grossly normal. LOWER EXTREMITIES: No pitting edema. NEURO EXAM: Normal sensorium, cranial nerves II-XII intact, normal speech, no weakness of arms, no weakness of legs. No drift. Finger to nose intact. Gross sensation intact. Medical Decision & Procedures ER Provider Diagnostic Interpretation: Radiology results as stated below per my review and the radiologist's interpretation: SINGLE VIEW CHEST CLINICAL HISTORY: Generalized weakness. FINDINGS: An AP, portable, upright chest radiographs are compared to study dated 02/12/2017. The examination is degraded by portable technique and patient rotation. A 2-lead cardiac AICD is unchanged in position and partially obscures the left mid chest. The heart is enlarged and there is atherosclerotic calcification of the thoracic aorta. There is pulmonary vascular congestion with evidence of mild interstitial edema. Small left pleural effusion is suggested. Or focal opacities are seen in the left lung base. Findings suggest emphysema. No pneumothorax is seen. The skeletal structures are osteopenic. Advanced arthritic change is noted in the shoulders. IMPRESSION: 1. Cardiomegaly and AICD. There is congestive failure with evidence of interstitial edema. 2. There is a small left pleural effusion. Left basilar opacities likely represent atelectasis. Correlate clinically for evidence of superimposed pneumonia. Electronically signed by: Ervin Aguilar M.D. 08/26/2017 5:32 PM Dictated Date/Time: 08/26/2017 5:[address] SCAN OF THE BRAIN WITHOUT IV CONTRAST CLINICAL HISTORY: Generalized weakness. COMPARISON STUDY: CT of the brain dated 09/07/2015. TECHNIQUE: Unenhanced axial CT scan of the brain is performed from the vertex to the skull base. A dose lowering technique was utilized adhering to the principles of ALARA. CT DOSE: 691.05 mGy.cm FINDINGS: Brain parenchyma: There are age-related involutional changes noting moderate subcortical and periventricular microangiopathic change. There is no hemorrhage, mass effect, or evidence of acute territorial ischemia by CT criteria. Valle-white matter is preserved. No extra-axial fluid collection is seen. Ventricles, sulci, cisterns: Prominent secondary to involutional change. Intracranial vasculature: There is atherosclerotic calcification of the cavernous carotid and vertebral arteries. Calvarium: Unremarkable. Sinuses and mastoids: The visualized paranasal sinuses are clear. The mastoid air cells are well pneumatized. Orbits: The bony orbits are grossly intact. IMPRESSION: There is no hemorrhage, mass effect, or evidence of acute territorial ischemia by CT criteria. Electronically signed by: Ervin Aguilar M.D. 08/26/2017 6:01 PM Dictated Date/Time: 08/26/2017 5:59 PM Laboratory Results 08/26/17 17:07 Red Blood Count 5.76, Mean Corpuscular Volume 83.2, Mean Corpuscular Hemoglobin 28.6, Mean Corpuscular Hemoglobin Concent 34.4, Mean Platelet Volume 8.5, Neutrophils (%) (Auto) 60.8, Lymphocytes (%) (Auto) 23.3, Monocytes (%) (Auto) 12.1, Eosinophils (%) (Auto) 2.8, Basophils (%) (Auto) 0.8, Neutrophils # (Auto ) 3.20, Lymphocytes # (Auto) 1.23, Monocytes # (Auto) 0.64, Eosinophils # (Auto ) 0.15, Basophils # (Auto) 0.04 08/26/17 17:07 Test 08/26/17 17:07 08/26/17 18:10 White Blood Count 5.27 K/uL (4.8-10.8) Red Blood Count 5.76 M/uL (4.7-6.1) Hemoglobin 16.5 g/dL (14.0-18.0) Hematocrit 47.9 % (42-52) Mean Corpuscular Volume 83.2 fL (80-100) Mean Corpuscular Hemoglobin 28.6 pg (25-34) Mean Corpuscular Hemoglobin Concent 34.4 g/dl (32-36) Platelet Count 183 K/uL (130-400) Mean Platelet Volume 8.5 fL (7.4-10.4) Neutrophils (%) (Auto) 60.8 % Lymphocytes (%) (Auto) 23.3 % Monocytes (%) (Auto) 12.1 % Eosinophils (%) (Auto) 2.8 % Basophils (%) (Auto) 0.8 % Neutrophils # (Auto) 3.20 K/uL (1.4-6.5) Lymphocytes # (Auto) 1.23 K/uL (1.2-3.4) Monocytes # (Auto) 0.64 K/uL (0.11-0.59) Eosinophils # (Auto) 0.15 K/uL (0-0.5) Basophils # (Auto) 0.04 K/uL (0-0.2) RDW Standard Deviation 44.6 fL (36.4-46.3) RDW Coefficient of Variation 14.7 % (11.5-14.5) Immature Granulocyte % (Auto) 0.2 % Immature Granulocyte # (Auto) 0.01 K/uL (0.00-0.02) Prothrombin Time 10.6 SECONDS (9.0-12.0) Prothromb Time International Ratio 1.0 (0.9-1.1) Activated Partial Thromboplast Time 28.0 SECONDS (21.0-31.0) Partial Thromboplastin Ratio 1.1 Anion Gap 2.0 mmol/L (3-11) Estimated GFR () 94.5 Estimated GFR (Non- 81.6 BUN/Creatinine Ratio 10.9 (10-20) Calcium Level 8.5 mg/dl (8.5-10.1) Magnesium Level 2.3 mg/dl (1.8-2.4) Total Bilirubin 0.5 mg/dl (0.2-1) Direct Bilirubin 0.1 mg/dl (0-0.2) Aspartate Amino Transf (AST/SGOT) 13 U/L (15-37) Alanine Aminotransferase (ALT/SGPT) 11 U/L (12-78) Alkaline Phosphatase 111 U/L (45-117) Troponin I < 0.015 ng/ml (0-0.045) Pro-B-Type Natriuretic Peptide 1847 pg/ml (0-1800) Total Protein 6.7 gm/dl (6.4-8.2) Albumin 3.6 gm/dl (3.4-5.0) Thyroid Stimulating Hormone (TSH) 1.780 uIu/ml (0.300-4.500) Urine Color YELLOW Urine Appearance CLEAR (CLEAR) Urine pH 5.5 (4.5-7.5) Urine Specific [place] 1.020 (1.000-1.030) Urine Protein NEG (NEG) Urine Glucose (UA) NEG (NEG) Urine Ketones NEG (NEG) Urine Occult Blood NEG (NEG) Urine Nitrite NEG (NEG) Urine Bilirubin NEG (NEG) Urine Urobilinogen NEG (NEG) Urine Leukocyte Esterase NEG (NEG) Laboratory results per my review. ECG Per My Interpretation Indication: syncope Rate (beats per minute): 66 Rhythm: sinus rhythm Findings: 1st degree AV block, PAC, other (Normal axis) ED Course ED COURSE: Vital signs were reviewed and showed hypertensive blood pressure. The patients medical record was reviewed The above diagnostic studies were performed and reviewed. ED treatments and interventions as stated above. 1657: The patient was evaluated in room A2. A complete history and physical examination was performed. 173: I updated the patient at this time. He is doing well. 1824: Interrogation of the patient's pacemaker/defibrillator shows multiple episodes of VT over the past two days. 183: I discussed the case with Dr. Marimar Burleson. He suggests that I bring the patient into the hospital. No medication changes at this time. 183: Upon reevaluation, the patient is resting in bed.I discussed my findings with the patient and h understands and agrees with the treatment plan. Based on the patients age, coexisting illnesses, exam and lab findings the decision to treat as an inpatient was made. The patient remained stable while under my care. The patient appeared well at the time of discharge. 1833: I discussed the case with Dr. Светлана Sapp. He will evaluate the patient for further treatment. Medical Decision Differential diagnosis includes etiologies such as vasovagal event, infection, hypoglycemia, electrolyte abnormalities, cardiac sources, intracerebral event, toxicologic, neurologic, as well as others were entertained. Patient is a 77-year-old male who presents the ER after multiple episodes of passing out over the past 2 days. He does have a pacemaker in. On evaluation he has no complaints. He is neurologically intact. CT head was negative. BMP along with CBC, LFTs, bilirubin and TSH was unremarkable. UA was negative. Chest x-ray was unremarkable. Pacemaker was interrogated and this gentleman has had multiple episodes of VT over the past 2 days. I discussed with her academic interventionist and the hospitalist. Patient was admitted for further workup. Medication Reconcilliation Current Medication List: was personally reviewed by me Blood Pressure Screening Patient's blood pressure: Elevated blood pressure Referred to hospitalist. Consults Time Called: 1826 Consulting Physician: Dr. Marimar Burleson Returned Call: 1830 I discussed the case with Dr. Marimar Burleson. He suggests that I bring the patient into the hospital. No medication changes at this time. Additional Consults: Time Called: 1831 Consulted Physician: Dr. Светлана [facility] Returned Call: 183 Additional Comments: I discussed the case with Dr. Светлана Sapp. He will evaluate the patient for further treatment. Impression Primary Impression: PVT (paroxysmal ventricular tachycardia) Additional Impression: Syncope Scribe Attestation The scribe's documentation has been prepared under my direction and personally reviewed by me in its entirety. I confirm that the note above accurately reflects all work, treatment, procedures, and medical decision making performed by me. Departure Information Dispostion Being Evaluated By Hospitalist Referrals Ed Garcia D.O. (PCP) Patient Instructions My [facility] Problem Qualifiers Additional Impression: Syncope Syncope type: unspecified Qualified Codes: R55 - Syncope and collapse
[2017-08-26] MEDS: SOTALOL HCL 80 MG TAB PO SCH (23:59)
[2017-08-27 00:01] VITALS: BP_SYST 156; BP_SYST 170; BP_DIAS 89; BP_DIAS 94; PULSE 70; PULSE 76; TEMP 36.7; O2SAT 95
[2017-08-27] MEDS: PATIENT'S HEIGHT AND/OR WEIGHT NEEDED SCH (00:30)
[2017-08-27 04:02] VITALS: BP 171/94; PULSE 65; TEMP 36.6; O2SAT 94
[2017-08-27 04:03] VITALS: BP 169/98
[2017-08-27] MEDS ORDERED: ACETAMINOPHEN 325 MG TAB PO PRN (04:30)
[2017-08-27] MEDS ORDERED: ACETAMINOPHEN 325 MG TAB ONE (04:45)
[2017-08-27] MEDS: SOTALOL HCL 80 MG TAB PO SCH ×2 (05:56→12:16)
[2017-08-27 08:31] VITALS: BP_SYST 127; BP_SYST 141; BP_SYST 149; BP_DIAS 63; BP_DIAS 86; BP_DIAS 91; PULSE 58; PULSE 65; PULSE 71; TEMP 36.5; O2SAT 96
[2017-08-27] MEDS ORDERED: ENOXAPARIN 40 MG/0.4 ML SYR SC SCH (09:00)
[2017-08-27] MEDS: MEXILETINE HCL 150 MG CAP PO SCH (10:18)
[2017-08-27] MEDS ORDERED: AMLODIPINE BESYLATE 5 MG TAB PO ONE (11:15)
[2017-08-27] MEDS ORDERED: MAGNESIUM OXIDE 400 MG TAB PO SCH (12:00)
[2017-08-27] MEDS ORDERED: ASPIRIN 325 MG ECTAB PO SCH (12:00)
[2017-08-27 12:06] VITALS: BP 153/96; PULSE 63; TEMP 36.6; O2SAT 97
--- NOTE | 2017-08-27 14:20 | Progress Note ---
Medicine Progress Note Date & Time of Visit: Aug 27, 2017 at 14:20 . Subjective Runs of nonsustained ventricular tachycardia noted on telemetry. The runs terminated spontaneously without antitachycardia pacing or defibrillation. No chest pain, dyspnea, palpitations, lightheadedness, syncope. Blood pressures have been fluctuating since admission. . Objective Last 8 Hrs Date Time Temp Pulse Resp B/P (MAP) Pulse Ox O2 Delivery O2 Flow Rate FiO2 08/27/17 12:06 36.6 63 20 153/96 (115) 97 Room Air 08/27/17 12:01 Room Air 08/27/17 08:31 36.5 58 20 127/63 (84) 96 Room Air 65 149/91 (110) 71 141/86 (104) 08/27/17 08:00 Room Air Physical Exam: General- no distress Lungs- clear to auscultation; no respiratory distress Cardiovascular- RRR; no murmur or gallop appreciated; no JVD; no pretibial edema Abdomen- + bowel sounds, soft, nontender Extremities- no cyanosis; no calf tenderness Neuro- alert, oriented Skin- warm & dry . Laboratory Results: Last 24 Hours Test 08/26/17 17:07 08/26/17 17:20 08/26/17 18:10 White Blood Count 5.27 K/uL Red Blood Count 5.76 M/uL Hemoglobin 16.5 g/dL Hematocrit 47.9 % Mean Corpuscular Volume 83.2 fL Mean Corpuscular Hemoglobin 28.6 pg Mean Corpuscular Hemoglobin Concent 34.4 g/dl Platelet Count 183 K/uL Mean Platelet Volume 8.5 fL Neutrophils (%) (Auto) 60.8 % Lymphocytes (%) (Auto) 23.3 % Monocytes (%) (Auto) 12.1 % Eosinophils (%) (Auto) 2.8 % Basophils (%) (Auto) 0.8 % Neutrophils # (Auto) 3.20 K/uL Lymphocytes # (Auto) 1.23 K/uL Monocytes # (Auto) 0.64 K/uL Eosinophils # (Auto) 0.15 K/uL Basophils # (Auto) 0.04 K/uL RDW Standard Deviation 44.6 fL RDW Coefficient of Variation 14.7 % Immature Granulocyte % (Auto) 0.2 % Immature Granulocyte # (Auto) 0.01 K/uL Prothrombin Time 10.6 SECONDS Prothromb Time International Ratio 1.0 Activated Partial Thromboplast Time 28.0 SECONDS Partial Thromboplastin Ratio 1.1 Sodium Level 138 mmol/L Potassium Level 4.1 mmol/L Chloride Level 106 mmol/L Carbon Dioxide Level 30 mmol/L Anion Gap 2.0 mmol/L Blood Urea Nitrogen 10 mg/dl Creatinine 0.91 mg/dl Estimated GFR () 94.5 Estimated GFR (Non- 81.6 BUN/Creatinine Ratio 10.9 Random Glucose 88 mg/dl Calcium Level 8.5 mg/dl Magnesium Level 2.3 mg/dl Total Bilirubin 0.5 mg/dl Direct Bilirubin 0.1 mg/dl Aspartate Amino Transf (AST/SGOT) 13 U/L Alanine Aminotransferase (ALT/SGPT) 11 U/L Alkaline Phosphatase 111 U/L Troponin I < 0.015 ng/ml Pro-B-Type Natriuretic Peptide 1847 pg/ml Total Protein 6.7 gm/dl Albumin 3.6 gm/dl Thyroid Stimulating Hormone (TSH) 1.780 uIu/ml Bedside Glucose 94 mg/dl Urine Color YELLOW Urine Appearance CLEAR Urine pH 5.5 Urine Specific [place] 1.020 Urine Protein NEG Urine Glucose (UA) NEG Urine Ketones NEG Urine Occult Blood NEG Urine Nitrite NEG Urine Bilirubin NEG Urine Urobilinogen NEG Urine Leukocyte Esterase NEG Assessment & Plan VENTRICULAR TACHYCARDIA History of ventricular tachycardia with ICD placed years ago. Intolerant or allergic to amiodarone. Most recently has been treated with mexiletine and sotalol. EP study performed at [facility] last year did not demonstrate any inducible arrhythmias. Patient admitted with several episodes of near-syncope without apparent discharge of ICD. ICD was interrogated in the ED by [employer] civil technician. 7 runs of ventricular tachycardia terminated by antitachycardia pacing were noted without any episodes of defibrillation. Patient was admitted for cardiac monitoring and Cardiology consultation. Electrolytes were normal. Mexiletine and sotalol were continued per patient's current regimen. He had short runs of nonsustained ventricular tachycardia that terminated spontaneously. No further episodes of antitachycardia pacing. No episodes of defibrillation. He was seen in consultation by Cardiology. Continuation of same antiarrhythmic regimen recommended. Outpatient follow-up with Electrophysiology- has previously scheduled appointment with Dr. Villareal on 08/29/17. NONISCHEMIC CARDIOMYOPATHY Patient has history of nonischemic cardiomyopathy. Chest x-ray was interpreted as demonstrating pulmonary vascular congestion. However, clinically the patient did not appear to be in CHF and he was not diuresed. Continue furosemide PRN. HYPERTENSION Patient had fluctuating blood pressures during his hospital stay. Suspect that elevated blood pressure secondary to anxiety/stress. Lisinopril 20 mg daily was continued. Cardiology recommended addition of amlodipine 2.5 mg daily. Follow and titrate therapy. VTE PROPHYLAXIS SQ enoxaparin. Ambulate. DISPOSITION Discharged to home. Internal Medicine follow-up with Dr. Garcia. Electrophysiology follow-up with Dr. Villareal. . Current Inpatient Medications: Current Inpatient Medications Medications (Trade) Dose Ordered Sig/Floyd Route Start Time Stop Time Status Last Admin Dose Admin Enoxaparin Sodium (Lovenox Inj) 40 mg DAILY SC 08/27/17 09:00 09/26/17 08:59 08/27/17 10:18 40 MG Lorazepam (Ativan Tab) 1 mg Q8 PRN PO 08/26/17 20:00 09/25/17 19:59 Mexiletine HCl (Mexitil Cap) 150 mg Q12@1000,2200 PO 08/26/17 22:00 09/25/17 20:59 08/27/17 10:18 150 MG Sotalol HCl (Betapace Tab) 80 mg Q6@0000,0600,1200,1800 PO 08/27/17 00:00 09/25/17 20:59 08/27/17 12:16 80 MG Aspirin (Ecotrin Tab) 650 mg BID@1200,1800 PO 08/27/17 12:00 09/26/17 11:59 08/27/17 12:17 650 MG Lisinopril (Zestril Tab) 20 mg DAILY@1800 PO 08/27/17 18:00 09/26/17 17:59 Magnesium Oxide (Mag-Ox Tab) 200 mg BID@1200,1800 PO 08/27/17 12:00 09/26/17 11:59 08/27/17 12:16 200 MG Acetaminophen (Tylenol Tab) 650 mg Q6 PRN PO 08/27/17 04:30 09/26/17 04:29
[2017-08-27] MEDS ORDERED: AMLO2.5T PO (14:22)
--- NOTE | 2017-08-27 14:27 | Discharge Instructions ---
Discharge Instructions Date of Service Aug 27, 2017. Admission Reason for Admission: ventricular tachycardia . Discharge Discharge Diagnosis / Problem: ventricular tachycardia Discharge Goals Goal(s): Improve disease control Activity Recommendations Activity Limitations: as noted below Driving or Machine Use: no driving If you fell lightheaded or dizzy, lie down immediately so that you don't fall and injure yourself. . . Instructions / Follow-Up Instructions / Follow-Up APPOINTMENTS: ELECTROPHYSIOLOGY 08/29/2017 3:00 PM Eloina Villareal IV, MD Cardiology [facility] OTHER INSTRUCTIONS: New medication for high blood pressure: amlodipine (Norvasc) 2.5 mg daily (prescription sent to [facility]) If you fell lightheaded or dizzy, lie down immediately so that you don't fall and injure yourself. Seek medical attention if you have: * temperature above 101 * chest pain or trouble breathing; severe palpitations * abdominal pain, nausea, vomiting * diarrhea, dark stools or bloody stools * any unanswered questions or concerns Call 911 if symptoms are severe. Call if you have any questions or problems. You can reach a [facility] hospitalist on duty at [facility] 24 hours a day by calling [phone]. Please take good care of yourself. Domo Sotomayor . Current Hospital Diet Patient's current hospital diet: AHA Diet (Heart Healthy) Discharge Diet Recommended Diet: Full Liquid Diet Pending Studies Studies pending at discharge: no Medical Emergencies . Who to Call and When: Medical Emergencies: If at any time you feel your situation is an emergency, please call 911 immediately. . Non-Emergent Contact Non-Emergency issues call your: Primary Care Provider, Maintenance Groundman, Hospital Doctor . . "Provider Documentation" section prepared by Domo Sotomayor. .
[2017-08-27 14:44] VITALS: BP 153/96; PULSE 63; TEMP 36.6; O2SAT 97
--- NOTE | 2017-08-27 16:02 | CARDIOLOGY CONSULTATION ---
DATE OF CONSULTATION: 08/27/2017 The patient seen and examined on 08/27/2017. REFERRING: Dr. Sotomayor. PRIMARY CARE PHYSICIAN: Dr. Garcia. PRIMARY CASH REGISTER SERVICER: Dr. Eloina Villareal, [facility]. ADMITTING DIAGNOSIS: Lightheadedness, history of sustained ventricular tachycardia. HISTORY OF PRESENT ILLNESS: The patient is a complex 77-year-old male whose history is notable for idiopathic cardiomyopathy diagnosed in 2005 with a near complete return to LV systolic function, though with persistent issues with paroxysmal and persistent ventricular tachycardia. He has undergone a pacer defibrillator implantation after cardiac arrest in 2006. He continues to have difficulties with intermittent episodes of appropriate device discharge for recurrent ventricular tachycardia. Prior attempts at ablation were unsuccessful. He has remained on antiarrhythmic therapy with combination of sotalol and mexiletine. The patient presents this admission noting no acute inciting cause but symptoms of intermittent dizziness and lightheadedness for approximately 24 hours. Symptoms became more and more frequent, ultimately resulted in ER presentation. Pacer defibrillator interrogation demonstrated 7 episodes of sustained ventricular tachycardia with appropriate pace termination. He is referred for further evaluation. He notes no chest pains. Notes no signs or symptoms of congestive heart failure. Notes no syncope or near syncope, though he does become lightheaded and fatigued when episodes occur. Notes no unexplained fevers or infections. Notes no bleeding difficulties. Notes no melena or hematochezia, dysuria or hematuria. Appetite and weight have been stable. Chronic issues include chronic hearing loss. He has been taking medications as prescribed without interruption. ALLERGIES: AMIODARONE. MEDICATIONS: Prior to hospitalization were aspirin 325 mg per day, furosemide 40 mg p.o. daily, lisinopril 20 mg p.o. daily, lorazepam p.r.n., mag ox 200 mg twice per day, mexiletine 150 mg q. 12, sotalol 80 mg q.i.d./q. 6 hours. PAST SURGICAL HISTORY: Notable for prior pacer defibrillator implantation, appendectomy, laparoscopic cholecystectomy. FAMILY HISTORY: Noncontributory. SOCIAL HISTORY: The patient is a retired mechanical product design engineer. He is a nonsmoker, nondrinker. He lives independently. PHYSICAL EXAMINATION: VITAL SIGNS: Heart rate is 63, blood pressure is 153/96. HEENT: Normocephalic and atraumatic. Nares without discharge. Throat was clear. NECK: Supple without thyromegaly, lymphadenopathy, JVD. There are no carotid bruits. Carotid pulses are 2/4 without delay. LUNGS: Clear. CARDIOVASCULAR: Regular. There is no S3 gallop. ABDOMEN: Soft, nontender. Pacer defibrillator sites without tenderness. EXTREMITIES: Without cyanosis or clubbing. There is no peripheral edema. There are intact distal pulses. LABORATORY STUDIES: Sodium is 138, potassium is 4.1, chloride is 106, bicarbonate is 30, BUN 10, creatinine 0.91. Troponin is less than 0.015. TSH is 1.78, albumin levels 3.6. Chest x-ray reveals minimal increase in interstitial markings. Head CT done for symptoms of lightheadedness demonstrated no mass effect or hemorrhage. IMPRESSION: A 77-year-old male with history of chronic ventricular arrhythmias with both paroxysmal sustained ventricular arrhythmia status post pacer defibrillator for idiopathic cardiomyopathy. The patient once again presents after increase in frequency of ventricular arrhythmias without overt inciting cause, only findings of note is elevated blood pressure on presentation. RECOMMENDATIONS: Discussed in detail. Would continue current antiarrhythmic therapy at near maximal dosing. Will add amlodipine initially at 5 mg per day, then 5 mg a day, then 2.5 mg daily for hypertension control. Consideration will be made for nocturnal oximetry assess for need for possible O2 supplement at night. He has already scheduled appointment with Dr. Villareal, his primary family day care provider in 2 days' time. The plan is to make that appointment. Anxious to be discharged with plans for outpatient followup.
[2017-08-27] MEDS ORDERED: LISINOPRIL 20 MG TAB PO SCH (18:00)
--- NOTE | 2017-08-27 18:44 | Discharge Summary ---
Discharge Summary Date of Service Aug 27, 2017. Discharge Summary Admission Date: Aug 26, 2017 at 19:02 Discharge Date: Aug 27, 2017 Discharge Disposition: Home Principal Diagnosis: ventricular tachycardia . Secondary Diagnoses/Problems: Chronic and Resolved Medical Problems: (1) AICD (automatic cardioverter/defibrillator) present Status: Chronic (2) Anxiety Status: Chronic (3) BPH (benign prostatic hypertrophy) Status: Chronic (4) Dyslipidemia Status: Chronic (5) GERD (gastroesophageal reflux disease) Status: Chronic (6) Gout Status: Chronic (7) HTN (hypertension) Status: Chronic (8) Idiopathic cardiomyopathy Permanent Comment: TTE 09/01/2013 - Normal LV systolic function without regional wall motion abnormality, EF 55-60%. Cath 08/18/2015 - moderate LV dysfunction, EF 40%, diffuse LV hypokinesis TTE 05/01/2016 - mild conc LVH, LVEF 60-65%, grade II diastolic dysfunction Status: Chronic (9) Nonobstructive coronary atherosclerosis Permanent Comment: cath 08/17/2005- Mild luminal irregularities of the RCA, Right dominant system, No angiographically hemodynamically significant stenosis Status: Chronic (10) PVT (paroxysmal ventricular tachycardia) Status: Chronic (11) Sleep apnea Status: Chronic Surgical Problems: (1) H/o CT guided needle biopsy Status: Chronic (2) History of implantable cardioverter-defibrillator (ICD) placement Status: Chronic (3) S/P appendectomy Status: Chronic (4) S/p EGD Status: Chronic (5) S/P laparoscopic cholecystectomy Status: Chronic . Consultations: Cardiology with Dr. Munoz . Medication Reconciliation New Medications: Amlodipine (Norvasc) 2.5 Mg Tab 2.5 MG PO DAILY, #30 TAB 5 Refills for blood pressure Continued Medications: Aspirin (Ecotrin Regular Strength) 325 Mg Tab 650 MG PO BID PRN for Pain, TAB Furosemide (Furosemide) 40 Mg Tab 40 MG PO DAILY PRN for edema Lisinopril (Prinivil) 20 Mg Tab 20 MG PO DAILY, TAB Lorazepam (Lorazepam) 1 Mg Tab 1 MG PO Q8 PRN for Anxiety Magnesium Oxide (Mag-Ox) 400 Mg Tab 200 MG PO BID Mexiletine Hcl (Mexiletine Hcl) 150 Mg Cap 150 MG PO Q12 Sotalol Hcl (Sotalol Hcl) 80 Mg Tab 80 MG PO Q6 Admission Information HPI (per Admitting provider): 77-year-old male followed by Dr. Garcia for Internal Medicine and [place]. [place] [facility]. History of ventricular tachycardia and other problems noted below. ICD initially placed in 2006. Has had several episodes of appropriate shocks over the years. Last [facility] hospitalization was 05/01/16 for VTE with ICD discharges. Medications were adjusted. Admitted to [facility] on 07/30/16 with recurrent VT with ICD discharges. EP study performed at [facility] on 08/16/16; there was no inducible tachycardia. He is allergic or intolerant to amiodarone. Current antiarrhythmic medications are mexiletine 150 mg BID and sotalol 80 mg QID. He was tried on mexiletine 150 mg TID in the past, but dose was reduced because of side effects. Experienced several episodes of lightheadedness/near syncope over the last 2 days. He has noted some palpitations. No discharge of ICD. No chest pain, dyspnea, dependent edema. Came to ED for evaluation. Interrogation of ICD demonstrated 7 episodes of ventricular tachycardia over past 48 hours, terminated by overdrive pacing, no discharge of ICD. Patient has been taking his medications diligently as prescribed. . Physical Exam (per Admitting): CONSTITUTIONAL vital signs as noted above well-developed, well-nourished, no acute distress EYES conjunctivae clear; lids normal pupils equal and reactive to light EARS, NOSE, MOUTH AND THROAT external inspection of ears and nose unremarkable hearing impaired, wearing hearing aid edentulous oropharynx clear NECK no masses; trachea midline thyroid normal RESPIRATORY normal respiratory effort; no respiratory distress clear to percussion clear to auscultation CARDIOVASCULAR regular rate and rhythm no murmur, gallop, or rub appreciated no JVD carotid arteries 2/2 abdominal aorta not palpable no pretibial edema GASTROINTESTINAL normal bowel sounds, soft, nontender; no palpable masses no hepatomegaly or splenomegaly appreciated LYMPHATIC no cervical adenopathy MUSCULOSKELETAL no cyanosis; no digital clubbing no calf tenderness motor strength extremities grossly intact SKIN few ecchymoses; no rash warm and dry NEUROLOGIC PERRL, EOMI, no facial palsy, no dysarthria, tongue midline patellar DTR's 1/2 PSYCHIATRIC oriented to person, place, time mood and affect appropriate . Hospital Course VENTRICULAR TACHYCARDIA History of ventricular tachycardia with ICD placed years ago. Intolerant or allergic to amiodarone. Most recently has been treated with mexiletine and sotalol. EP study performed at [facility] last year did not demonstrate any inducible arrhythmias. Patient admitted with several episodes of near-syncope without apparent discharge of ICD. ICD was interrogated in the ED by [employer] life support technician. 7 runs of ventricular tachycardia terminated by antitachycardia pacing were noted without any episodes of defibrillation. Patient was admitted for cardiac monitoring and Cardiology consultation. Electrolytes were normal. Mexiletine and sotalol were continued per patient's current regimen. He had short runs of nonsustained ventricular tachycardia that terminated spontaneously. No further episodes of antitachycardia pacing. No episodes of defibrillation. He was seen in consultation by Cardiology. Continuation of same antiarrhythmic regimen recommended. Outpatient follow-up with Electrophysiology- has previously scheduled appointment with Dr. Villareal on 08/29/17. NONISCHEMIC CARDIOMYOPATHY Patient has history of nonischemic cardiomyopathy. Chest x-ray was interpreted as demonstrating pulmonary vascular congestion. However, clinically the patient did not appear to be in CHF and he was not diuresed. Continue furosemide PRN. HYPERTENSION Patient had fluctuating blood pressures during his hospital stay. Suspect that elevated blood pressure secondary to anxiety/stress. Lisinopril 20 mg daily was continued. Cardiology recommended addition of amlodipine 2.5 mg daily. Follow and titrate therapy. VTE PROPHYLAXIS SQ enoxaparin. Ambulate. DISPOSITION Discharged to home. Internal Medicine follow-up with Dr. Garcia. Electrophysiology follow-up with Dr. Villareal. . Total time spent on discharge = 35 min. This includes examination of the patient, discharge planning, medication reconciliation, and communication with other providers. . Discharge Instructions Date of Service Aug 27, 2017. Admission Reason for Admission: ventricular tachycardia . Discharge Discharge Diagnosis / Problem: ventricular tachycardia Discharge Goals Goal(s): Improve disease control Activity Recommendations Activity Limitations: as noted below Driving or Machine Use: no driving If you fell lightheaded or dizzy, lie down immediately so that you don't fall and injure yourself. . . Instructions / Follow-Up Instructions / Follow-Up APPOINTMENTS: ELECTROPHYSIOLOGY 08/29/2017 3:00 PM Eloina Villareal IV, MD Cardiology [facility] OTHER INSTRUCTIONS: New medication for high blood pressure: amlodipine (Norvasc) 2.5 mg daily (prescription sent to [facility]) If you fell lightheaded or dizzy, lie down immediately so that you don't fall and injure yourself. Seek medical attention if you have: * temperature above 101 * chest pain or trouble breathing; severe palpitations * abdominal pain, nausea, vomiting * diarrhea, dark stools or bloody stools * any unanswered questions or concerns Call 911 if symptoms are severe. Call if you have any questions or problems. You can reach a [facility] hospitalist on duty at [facility] 24 hours a day by calling [phone]. Please take good care of yourself. Domo Sotomayor . Current Hospital Diet Patient's current hospital diet: AHA Diet (Heart Healthy) Discharge Diet Recommended Diet: Full Liquid Diet Pending Studies Studies pending at discharge: no Medical Emergencies . Who to Call and When: Medical Emergencies: If at any time you feel your situation is an emergency, please call 911 immediately. . Non-Emergent Contact Non-Emergency issues call your: Primary Care Provider, Hosiery Bagger, Hospital Doctor . . "Provider Documentation" section prepared by Domo Sotomayor. . . Additional Copies To Eloina Villareal M.D.
== END 2017-08-27 15:49 | disposition home or self-care (01) | DRG 309 ==
LOC: C.EDB 16:46 → C.2T 19:02 → ENRESERV 19:19
PROVIDERS: ADMIT Hospitalist; ATTEND Hospitalist
DX: I47.2 Ventricular tachycardia (principal); I42.9 Cardiomyopathy, unspecified; Z95.810 Presence of automatic (implantable) cardiac defibrillator; N40.1 Benign prostatic hyperplasia with lower urinary tract symptoms; E78.5 Hyperlipidemia, unspecified; M1A.9XX0 Chronic gout, unspecified, without tophus (tophi); I10 Essential (primary) hypertension; I25.10 Atherosclerotic heart disease of native coronary artery without angina pectoris; Z88.8 Allergy status to other drugs, medicaments and biological substances

== ENCOUNTER 2017-12-21 18:15 | Emergency (ER) | payer OTHER ==
[~2017-12-21] VITALS: Ht 193 cm; Wt 122.9 kg
[~2017-12-21 18:15] MED LIST changes: +AMLO2.5T PO; -AMOX1TAB42 PO; -FAMO40TA6 PO; -LISI20TA3 PO; +MAGN400T6 PO; +MXT150 PO; -OXYC1TAB3 PO; +PANT40TA PO; +SOTA80TA PO
[2017-12-21] MEDS ORDERED: ACETAMINOPHEN 500 MG TAB PO STA (18:36)
--- NOTE | 2017-12-21 18:42 | EMERGENCY ROOM VISIT NOTE ---
History Report prepared by Kiersten: Jj Hare Under the Supervision of: Dr. Dale Burks M.D. First contact with patient: 18:18 Stated Complaint: BACK PAIN History of Present Illness The patient is a 77 year old white male with a past medical history of VT, s/p AICD, HTN, HLD, GERD, gout, SABRINA, KRISTOFER who presents to the ED with a cc of worsening back pain beginning several years ago. He currently rates his discomfort a 10/10 in severity. Positive cracking sounds in his lower back. Negative pain shooting down his leg, abdominal pain, fevers, decreased sensation. Pt states he was picked up out a chair recently. He reports the people helping him were slightly aggressive, and he felt his lower back crack three different times. Pt notes his bilateral lower back hurts, but it is worse on the right side. He states movement worsens his symptoms. Pt reports he tried taking an oxycodone for pain, and it mildly alleviated his symptoms. He notes he took aspirin as well, and that seemed to help best. Pt states he came to the ED because he lied down and could not get up. Source of History: patient Onset: several years ago Position: back (lower) Symptom Intensity: 10/10 Timing: worsening Modifying Factors (Worsening): movement Modifying Factors (Relieving): narcotics, other (aspirin) Associated Symptoms: No fevers, No abdominal pain Review of Systems See HPI for pertinent positives and negatives. A total of ten systems were reviewed and were otherwise negative. Past Medical & Surgical Medical Problems: (1) AICD (automatic cardioverter/defibrillator) present (2) Anxiety (3) BPH (benign prostatic hypertrophy) (4) Dyslipidemia (5) GERD (gastroesophageal reflux disease) (6) Gout (7) HTN (hypertension) (8) Idiopathic cardiomyopathy (9) Nonobstructive coronary atherosclerosis (10) PVT (paroxysmal ventricular tachycardia) (11) Sleep apnea Surgical Problems: (1) H/o CT guided needle biopsy (2) History of implantable cardioverter-defibrillator (ICD) placement (3) S/P appendectomy (4) S/p EGD (5) S/P laparoscopic cholecystectomy Family History FH: cancer FATHER Social History Smoking Status: Never Smoker Alcohol Use: none Drug Use: none Marital Status: Housing Status: lives with significant other Occupation Status: retired Current/Historical Medications Scheduled Amiodarone Hcl (Cordarone), 100 MG PO QAM Amiodarone Hcl (Cordarone), 200 MG PO QPM Aspirin (Ecotrin Regular Strength), 650 MG PO BID Lidocaine (Lidocaine), 1 PATCH TD QD Lisinopril (Prinivil), 20 MG PO DAILY Magnesium (Magnesium), 100 MG PO BID Metoprolol Succ (Toprol Xl) (Toprol-Xl), 25 MG PO DAILY Scheduled PRN Dextromethorphan-Guaifenesin (Robitussin-Dm Syrup), 5 ML PO Q4H PRN for Cough Famotidine (Pepcid), 20 MG PO UD PRN for Acid Reflux Loratadine (Claritin), 10 MG PO DAILY PRN for Allergy Symptoms Lorazepam (Lorazepam), 1 MG PO Q8 PRN for Anxiety Polyethylene Glycol 3350 (Miralax), 17 GM PO DAILY PRN for Severe Constipation Tramadol (Ultram), 25 MG PO Q8H PRN for Pain Allergies Coded Allergies: No Known Allergies (Unverified , 12/21/17) Physical Exam Vital Signs Date Time Temp Pulse Resp B/P (MAP) Pulse Ox O2 Delivery O2 Flow Rate FiO2 12/21/17 22:30 68 18 138/72 99 Room Air 12/21/17 21:05 65 18 137/73 99 Room Air 12/21/17 18:44 37.0 76 18 167/99 96 Room Air Physical Exam GENERAL: Awake, alert, well-appearing, NAD. Hard of hearing. HENT: Normocephalic, atraumatic. Hearing aid in place. EYES: Normal conjunctiva. Sclera non-icteric. PERRL. No anisocoria. NECK: Supple. No nuchal rigidity. FROM. RESPIRATORY: CTAB, no rhonchi, wheezing, crackles CARDIAC: RRR, no MRG ABDOMEN: Soft, NTND, BS+ MSK: No chest wall TTP, no LE edema. Device in left chest. Right sided lower back pain without overlying skin change. Negative straight leg raise bilaterally. NEURO: GCS 15, CN 2-12 intact, moves all 4s on command. No saddle anesthesia. SKIN: No rash or jaundice noted. Medical Decision & Procedures ER Provider Diagnostic Interpretation: Radiology results as stated below per my review and radiologist interpretation: LUMBAR SPINE WITHOUT HISTORY: 77 years-old Male Back pain acute severe low back pain COMPARISON: CT abdomen and pelvis 02/12/2017 TECHNIQUE: Multiple axial CT images of the lumbar spine were obtained without the use of IV contrast. A dose lowering technique was used consistent with the principals of ALARA. FINDINGS: Mildly demineralized appearance of the bones. Ill-defined linear lucency is noted beneath the superior endplate L5, which appears progressed or new from comparison 02/12/2017. No definite acute compression deformity. Multilevel vacuum disc phenomena with at least moderate intervertebral disc space narrowing. Spondylitic spurring with multilevel posterior annular disc osteophyte complex formations. Severe facet arthrosis at L5-S1. Moderate facet arthropathy is noted at multiple levels. Calcification of the abdominal aorta without aneurysm. No acute intra-abdominal or paraspinal abnormality identified. T12-L1: Moderate facet arthrosis with small circumferential annular disc bulge and spondylitic spurring. No central canal or foraminal narrowing. L1-L2: Moderate facet arthrosis with small posterior annular disc bulge and spondylitic spurring. No central canal or foraminal narrowing. L2-L3: Prominent posterior spondylitic spurring with circumferential annular disc bulge, ligamentum flavum thickening with moderate facet arthrosis. Additionally, there is prominence of the posterior epidural fat. Findings cause moderate central canal stenosis with AP dimension of the thecal sac measuring 7 mm. Mild left foraminal narrowing. The right foramen appears patent. L3-L4: Posterior spondylitic spurring with circumferential annular disc bulge, ligamentum flavum thickening with moderate facet arthrosis. Mild epidural lipomatosis is also present. Findings cause severe central canal stenosis with AP dimension of the thecal sac measuring 5 mm. Mild to moderate right and mild left foraminal stenosis. L4-L5: Mild epidural lipomatosis is also seen at this level. Circumferential annular disc bulge with spondylitic spurring, ligament of flavum thickening and moderate to severe facet arthropathy. Findings cause mild to moderate central canal and mild right foraminal stenosis. Left foramen appears patent. L5-S1: Mild epidural lipomatosis. Annular disc bulge with posterior spondylitic spurring, severe facet arthrosis and ligamentum flavum thickening. Moderate left and mild to moderate right foraminal narrowing. Central canal is patent. IMPRESSION: 1. Ill-defined linear lucency beneath the superior endplate L5 is equivocal for subtle acute superior endplate fracture without loss of anterior vertebral body height. No retropulsion. Correlate with point tenderness. 2. Multilevel advanced intervertebral disc space narrowing with spondylitic spurring and facet arthropathy as detailed above. 3. Severe central canal stenosis at L3-L4 with mild to moderate right and mild left foraminal narrowing. The above report was generated using voice recognition software. It may contain grammatical, syntax or spelling errors. Electronically signed by: Jose Reyes M.D. 12/21/2017 8:10 PM Dictated Date/Time: 12/21/2017 7:57 PM Laboratory Results 12/21/17 19:00 Red Blood Count 5.64, Mean Corpuscular Volume 82.6, Mean Corpuscular Hemoglobin 28.0, Mean Corpuscular Hemoglobin Concent 33.9, Mean Platelet Volume 8.9, Neutrophils (%) (Auto) 61.0, Lymphocytes (%) (Auto) 17.1, Monocytes (%) (Auto) 17.3, Eosinophils (%) (Auto) 3.4, Basophils (%) (Auto) 1.0, Neutrophils # (Auto ) 3.08, Lymphocytes # (Auto) 0.86, Monocytes # (Auto) 0.87, Eosinophils # (Auto ) 0.17, Basophils # (Auto) 0.05 12/21/17 19:00 Test 12/21/17 19:00 White Blood Count 5.04 K/uL (4.8-10.8) Red Blood Count 5.64 M/uL (4.7-6.1) Hemoglobin 15.8 g/dL (14.0-18.0) Hematocrit 46.6 % (42-52) Mean Corpuscular Volume 82.6 fL (80-100) Mean Corpuscular Hemoglobin 28.0 pg (25-34) Mean Corpuscular Hemoglobin Concent 33.9 g/dl (32-36) Platelet Count 163 K/uL (130-400) Mean Platelet Volume 8.9 fL (7.4-10.4) Neutrophils (%) (Auto) 61.0 % Lymphocytes (%) (Auto) 17.1 % Monocytes (%) (Auto) 17.3 % Eosinophils (%) (Auto) 3.4 % Basophils (%) (Auto) 1.0 % Neutrophils # (Auto) 3.08 K/uL (1.4-6.5) Lymphocytes # (Auto) 0.86 K/uL (1.2-3.4) Monocytes # (Auto) 0.87 K/uL (0.11-0.59) Eosinophils # (Auto) 0.17 K/uL (0-0.5) Basophils # (Auto) 0.05 K/uL (0-0.2) RDW Standard Deviation 45.6 fL (36.4-46.3) RDW Coefficient of Variation 15.2 % (11.5-14.5) Immature Granulocyte % (Auto) 0.2 % Immature Granulocyte # (Auto) 0.01 K/uL (0.00-0.02) Anion Gap 9.0 mmol/L (3-11) Est Creatinine Clear Calc Drug Dose 89.1 ml/min Estimated GFR () 83.4 Estimated GFR (Non- 71.9 BUN/Creatinine Ratio 12.3 (10-20) Calcium Level 8.5 mg/dl (8.5-10.1) Laboratory results reviewed by me Medications Administered Medications (Trade) Dose Ordered Sig/Floyd Route Start Time Stop Time Status Last Admin Dose Admin Acetaminophen (Tylenol Tab) 1,000 mg NOW STAT PO 12/21/17 18:36 12/21/17 18:38 DC 12/21/17 19:06 1,000 MG Tramadol HCl (Ultram Tab) 50 mg NOW STAT PO 12/21/17 20:44 12/21/17 20:45 DC 12/21/17 21:07 50 MG Fentanyl Citrate (Fentanyl Inj) 50 mcg NOW ONCE IM 12/21/17 21:15 12/21/17 21:16 DC 12/21/17 21:13 50 MCG ED Course 1823: The patient was evaluated in room A09B. A complete history and physical exam was performed. 2038: I reevaluated the patient. He does not feel better. 2120: I discussed the patient's case with Dr. Shell, Orthopedic Spine. He recommends some sort of supportive brace and call the office on Sunday for a follow-up. 3: The patient successfully completed an ambulatory trial. 6: I reevaluated the patient. Discussed results and discharge instructions: he verbalized understanding and agreement. The patient is ready for discharge. Medical Decision The patient is a 77 year old white male with a past medical history of VT, s/p AICD, HTN, HLD, GERD, gout, SABRINA, KRISTOFER who presents to the ED with a cc of worsening back pain beginning several years ago. Nursing notes reviewed. Ancillary studies and prior records reviewed. Differential diagnosis: Etiologies such as musculoskeletal, disc herniation, fracture, aortic disease, metastatic disease, cord compression, discitis, infection, renal colic, gastrointestinal, acute exacerbation of chronic back pain, sciatica, cauda equina, as well as others were entertained. Patient was seen and evaluated the bedside. Patient was complaining some back pain. Patient does have some chronic issues with back pain since a prior hospital stay last year. The patient complains it is right-sided and low. Patient denies any shooting pain or sciatica type symptoms. Patient denies any saddle anesthesia or bowel or bladder incontinence. The patient does not have any weakness in his lower extremities. On exam the patient does have reproducible tenderness that is midline and right-sided. Patient did have blood work completed along with a CT of the L-spine. Patient was treated with medications. The patient was noted to have a L5 superior endplate deformity that was likely acute. Fairly subtle. No evidence of any loss of height. I did speak with the on-call spinal specialist to was agreeable to seeing the patient in clinic that week and also stated that they could wear some sort of supportive brace. Upon reassessment of the patient the patient did receive a second round pain medications the patient was feeling improved. The patient was able to sit up without difficulty. Given this the patient was given Lidoderm patches as an outpatient as well as some tramadol as this greatly did ameliorate his pain. Patient was deemed suitable for outpatient follow-up treatment at this time. Patient was given strict follow-up , discharge, and return precautions. All questions were answered. Patient was deemed suitable for outpatient follow-up at this time. Patient agreed with the plan of care and was safely discharged home. Medication Reconcilliation Current Medication List: was personally reviewed by me Blood Pressure Screening Patient's blood pressure: Elevated blood pressure Blood pressure disposition: Elevated BP felt to be situational Consults Time Called: 2113 Consulting Physician: Dr. Shell, Orthopedic Spine Returned Call: 2120 I discussed the patient's case with Dr. Shell, Orthopedic Spine. He recommends some sort of supportive brace and call the office on Sunday for a follow-up. Impression Primary Impression: Closed L5 vertebral fracture Scribe Attestation The scribe's documentation has been prepared under my direction and personally reviewed by me in its entirety. I confirm that the note above accurately reflects all work, treatment, procedures, and medical decision making performed by me. Departure Information Dispostion Home / Self-Care Prescriptions Tramadol (Ultram) 50 Mg Tab 25 MG PO Q8H Y for Pain, #12 TAB Prov: Dale Burks M.D. 12/21/17 Lidocaine (LIDOCAINE) 5 % Pad 1 PATCH TD QD for Pain, #1 BOX Prov: Dale Burks M.D. 12/21/17 Referrals Ed Gacria D.O. (PCP) Domo Shell, DO Forms HOME CARE DOCUMENTATION FORM, IMPORTANT VISIT INFORMATION Patient Instructions Back Pain Relieve, My [facility] Additional Instructions Please return to the emergency department if you have worsening or recurrent symptoms not amenable to at-home treatment. Please call for a follow-up appointment with her primary care physician. Please take your medications as prescribed. If you have other concerns and/or complaints please feel free to also call your primary care physician's office or return the ED for further evaluation, management, and treatment. You may take tylenol 650 mg every 6 hours as needed for pain/fever unless told by your physician to not take it or have liver problems. Take your medications as prescribed. Please follow-up with the spinal specialist. You have been examined and treated today on an emergency basis only. This is not a substitute for, or an effort to provide, complete comprehensive medical care. It is impossible to recognize and treat all injuries or illnesses in a single emergency department visit. It is therefore important that you follow up closely with [facility], your PCP, and/or your specialist(s). Call as soon as possible for an appointment. Thank you for your time and consideration. I look forward to speaking with you again soon. Please don't hesitate to call us if you have any questions. Problem Qualifiers Primary Impression: Closed L5 vertebral fracture Encounter type: initial encounter Fracture morphology: unspecified fracture morphology Qualified Codes: S32.059A - Unspecified fracture of fifth lumbar vertebra, initial encounter for closed fracture
[2017-12-21 18:44] VITALS: TEMP 37; Ht 193 cm; Wt 122.9 kg
[2017-12-21] MEDS ORDERED: AMIO400T3 PO (19:07)
[2017-12-21] MEDS ORDERED: LISI20TA3 PO (19:21)
[2017-12-21] MEDS ORDERED: CLR10 PO (19:21)
[2017-12-21] MEDS ORDERED: MAGN200T3 PO (19:21)
[2017-12-21] MEDS ORDERED: AMIO200T4 PO ×2 (19:21)
[2017-12-21] MEDS ORDERED: METO25TA3 PO (19:21)
[2017-12-21 19:26] LABS: BASO ABS # 0.05 K/uL (0-0.2); EOS % 3.4 %; EOS ABS # 0.17 K/uL (0-0.5); HEMATOCRIT 46.6 % (42-52); HEMOGLOBIN 15.8 g/dL (14.0-18.0); IG# 0.01 K/uL (0.00-0.02); LYMPH % 17.1 %; LYMPH ABS # 0.86 K/uL (1.2-3.4); MEAN CELL VOLUME 82.6 fL (80-100); MEAN CORPUSCULAR HGB CONC 33.9 g/dl (32-36); MEAN PLATELET VOLUME 8.9 fL (7.4-10.4); MONO % 17.3 %; MONO ABS # 0.87 K/uL (0.11-0.59); NEUT ABS # 3.08 K/uL (1.4-6.5); PLATELET COUNT 163 K/uL (130-400); RED CELL DISTRIBUTION WIDTH CV 15.2 % (11.5-14.5); RED CELL DISTRIBUTION WIDTH SD 45.6 fL (36.4-46.3); WHITE BLOOD COUNT 5.04 K/uL (4.8-10.8)
[2017-12-21] MEDS ORDERED: POLY335019 PO (19:26)
[2017-12-21] MEDS ORDERED: RBTDMUDL5 PO (19:26)
[2017-12-21] MEDS ORDERED: FAMO20TA9 PO (19:42)
[2017-12-21 19:47] LABS: CALCIUM 8.5 mg/dl (8.5-10.1); CREATININE 1.01 mg/dl (0.60-1.40)
--- NOTE | 2017-12-21 20:12 | DIAGNOSTIC IMAGING REPORT ---
LUMBAR SPINE WITHOUT HISTORY: 77 years-old Male Back pain acute severe low back pain COMPARISON: CT abdomen and pelvis 02/12/2017 TECHNIQUE: Multiple axial CT images of the lumbar spine were obtained without the use of IV contrast. A dose lowering technique was used consistent with the principals of ALARA. FINDINGS: Mildly demineralized appearance of the bones. Ill-defined linear lucency is noted beneath the superior endplate L5, which appears progressed or new from comparison 02/12/2017. No definite acute compression deformity. Multilevel vacuum disc phenomena with at least moderate intervertebral disc space narrowing. Spondylitic spurring with multilevel posterior annular disc osteophyte complex formations. Severe facet arthrosis at L5-S1. Moderate facet arthropathy is noted at multiple levels. Calcification of the abdominal aorta without aneurysm. No acute intra-abdominal or paraspinal abnormality identified. T12-L1: Moderate facet arthrosis with small circumferential annular disc bulge and spondylitic spurring. No central canal or foraminal narrowing. L1-L2: Moderate facet arthrosis with small posterior annular disc bulge and spondylitic spurring. No central canal or foraminal narrowing. L2-L3: Prominent posterior spondylitic spurring with circumferential annular disc bulge, ligamentum flavum thickening with moderate facet arthrosis. Additionally, there is prominence of the posterior epidural fat. Findings cause moderate central canal stenosis with AP dimension of the thecal sac measuring 7 mm. Mild left foraminal narrowing. The right foramen appears patent. L3-L4: Posterior spondylitic spurring with circumferential annular disc bulge, ligamentum flavum thickening with moderate facet arthrosis. Mild epidural lipomatosis is also present. Findings cause severe central canal stenosis with AP dimension of the thecal sac measuring 5 mm. Mild to moderate right and mild left foraminal stenosis. L4-L5: Mild epidural lipomatosis is also seen at this level. Circumferential annular disc bulge with spondylitic spurring, ligament of flavum thickening and moderate to severe facet arthropathy. Findings cause mild to moderate central canal and mild right foraminal stenosis. Left foramen appears patent. L5-S1: Mild epidural lipomatosis. Annular disc bulge with posterior spondylitic spurring, severe facet arthrosis and ligamentum flavum thickening. Moderate left and mild to moderate right foraminal narrowing. Central canal is patent. IMPRESSION: 1. Ill-defined linear lucency beneath the superior endplate L5 is equivocal for subtle acute superior endplate fracture without loss of anterior vertebral body height. No retropulsion. Correlate with point tenderness. 2. Multilevel advanced intervertebral disc space narrowing with spondylitic spurring and facet arthropathy as detailed above. 3. Severe central canal stenosis at L3-L4 with mild to moderate right and mild left foraminal narrowing. The above report was generated using voice recognition software. It may contain grammatical, syntax or spelling errors. Electronically signed by: Jose Reyes M.D. 12/21/2017 8:10 PM Dictated Date/Time: 12/21/2017 7:57 PM
[2017-12-21] MEDS ORDERED: LORA1TAB13 PO (20:17)
[2017-12-21] MEDS ORDERED: TRAMADOL HCL 50 MG TAB PO STA (20:44)
[2017-12-21] MEDS ORDERED: FENTANYL CITRATE INJ 50 MCG/1 ML 2 ML VIAL IV ONE (20:45)
[2017-12-21] MEDS ORDERED: ASPI-427 PO (21:09)
[2017-12-21] MEDS ORDERED: FENTANYL CITRATE INJ 50 MCG/1 ML 2 ML VIAL IM ONE (21:15)
[2017-12-21 22:30] VITALS: BP 138/72; PULSE 68; O2SAT 99
[2017-12-21] MEDS ORDERED: LIDO1PAD2 TD (22:36)
[2017-12-21] MEDS ORDERED: TRAM-10 PO (22:36)
== END 2017-12-21 22:45 | disposition home or self-care (01) ==
LOC: EDBD 18:15 → C.EDA 18:16
DX: S32.059A Unspecified fracture of fifth lumbar vertebra, initial encounter for closed fracture (principal); X50.0XXA Overexertion from strenuous movement or load, initial encounter; Z95.810 Presence of automatic (implantable) cardiac defibrillator; G89.29 Other chronic pain; I10 Essential (primary) hypertension; Z79.899 Other long term (current) drug therapy; E78.5 Hyperlipidemia, unspecified; K21.9 Gastro-esophageal reflux disease without esophagitis; M10.9 Gout, unspecified; F41.1 Generalized anxiety disorder; G47.33 Obstructive sleep apnea (adult) (pediatric); N40.0 Benign prostatic hyperplasia without lower urinary tract symptoms; I42.9 Cardiomyopathy, unspecified; I47.2 Ventricular tachycardia; Z90.49 Acquired absence of other specified parts of digestive tract; Z80.9 Family history of malignant neoplasm, unspecified

== ENCOUNTER 2018-10-09 11:29 | Inpatient (IN) ==
[2018-10-09 12:52] LABS: Basophils # (auto) 0.02 K/uL (0-0.2); Basophils % (auto) 0.2 %; Eosinophils # (auto) 0.04 K/uL (0-0.5); Eosinophils % (auto) 0.4 %; Hematocrit (blood only) 43.5 % (42-52); Hemoglobin 15.2 g/dL (14.0-18.0); Immature Granulocytes # (auto) 0.03 K/uL (0.00-0.02); Immature Granulocytes % (auto) 0.3 %; Lymphocytes # (auto) 1.13 K/uL (1.2-3.4); Lymphocytes % (auto) 12.6 %; Mean Corpuscular Hgb Conc 34.9 g/dL (32-36); Mean Corpuscular Volume 82.2 fL (80-100); Mean Platelet Volume 8.6 fL (7.4-10.4); Monocytes # (auto) 0.88 K/uL (0.11-0.59); Monocytes % (auto) 9.8 %; Neutrophils # (auto) 6.87 K/uL (1.4-6.5); Neutrophils % (auto) 76.7 %; Platelet Count 174 K/uL (130-400); RDW Coefficient of Variation 15.3 % (11.5-14.5); Red Blood Count 5.29 M/uL (4.7-6.1); White Blood Count 8.97 K/uL (4.8-10.8)
--- NOTE | 2018-10-09 13:02 | XRay Report ---
XR chest 1V portable HISTORY: weakness COMPARISON: Chest 10/06/2018. FINDINGS: No pneumothorax. No pleural effusions. The heart remains mildly enlarged. Left-sided asymme tric/defibrillator. No focal lung consolidations to suggest pneumonia. Mild interstitial thickening a t the lung bases which is likely chronic. No evidence for pulmonary edema. IMPRESSION: Mild cardiac megaly and mild basilar interstitial thickening. This is likely chronic. Otherwise, no a cute process within the chest. Electronically signed by: Los Frausto M.D. 10/09/2018 1:01 PM
[2018-10-09 13:04] LABS: Appearance Urine Turbid (Clear); Bilirubin Urine Negative (Negative); Blood Urine 3+ (Negative); Glucose Urine UA Negative (Negative); Ketones Urine Negative (Negative); Leukocyte Esterase Urine 2+ (Negative); Nitrite Urine Negative (Negative); Protein Urine 1+ (Negative); Specific Gravity Urine 1.022 (1.000-1.030); Urobilinogen Urine Negative (Negative)
[2018-10-09 13:07] LABS: Color Urine Amber
[2018-10-09 13:10] LABS: Alanine Aminotransferase 29 U/L (12-78); Aspartate Aminotransferase 37 U/L (15-37); Blood Urea Nitrogen 29 mg/dl (7-18); Calcium 8.3 mg/dl (8.5-10.1); Carbon Dioxide 23 mmol/L (21-32); Chloride 104 mmol/L (98-107); Creatinine Clr Calc Pharmacy 56.1 ml/min; Est GFR (African American) 50.9; Est GFR (Non-African American) 43.9; Glucose 102 mg/dl (70-99); Potassium 4.1 mmol/L (3.5-5.1); Sodium 134 mmol/L (136-145)
[2018-10-09 13:16] LABS: Bacteria Urine Automated 2+ (Negative); RBC Urine Automated >30 /hpf (0-4)
[2018-10-09 13:17] LABS: Mucus Urine Present (None Prsent)
[2018-10-09 13:20] LABS: Albumin Globulin Ratio 0.8 (0.9-2); Alkaline Phosphatase 120 U/L (45-117); Bilirubin,Total 0.8 mg/dl (0.2-1); Creatine Kinase 128 U/L (39-308); Globulin 3.7 gm/dl (2.5-4.0); NT Pro B Type Natriuretic Pept 910 pg/ml (0-1800); Total Protein 6.7 gm/dl (6.4-8.2); Troponin I < 0.015 ng/ml (0-0.045)
--- NOTE | 2018-10-09 13:25 | CT Scan Report ---
HEAD CT NONCONTRAST CT DOSE: 2972.21 mGy.cm HISTORY: eval for weakness TECHNIQUE: Multiaxial CT images of the head were performed without the use of intravenous contrast. A utomated exposure control was utilized for this study. A dose lowering technique was utilized adheri ng to the principles of ALARA. Comparison: Head CT 03/20/2018. Findings: Small amount of bubbly secretions within the left sphenoid sinus, unchanged. The mastoid ai r cells are clear. The calvarium and skull base are intact. There is no mass, hematoma, midline shift , acute infarct. White matter hypodensity is nonspecific but suggestive of microvascular ischemic micheline nge. The ventricles and sulci demonstrate mild age-related involutional changes. 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 Impression: No significant change compared to the prior study. No acute intracranial abnormality. Electronically signed by: Los Frausto M.D. 10/09/2018 1:23 PM
--- NOTE | 2018-10-09 13:30 | CT Scan Report ---
CT SCAN OF THE ABDOMEN AND PELVIS WITHOUT IV CONTRAST; CT SCAN OF THE LUMBAR SPINE WITHOUT IV CONTRAS T CLINICAL HISTORY: Generalized abdominal pain. Back pain. COMPARISON STUDY: Abdominal CT dated 12/31/2017. TECHNIQUE: CT scan of the abdomen and pelvis is performed from the lung bases to the proximal femora. Additionally, CT scan of the lumbar spine is performed from the lower thoracic spine to the sacrum. Images for both examinations are reviewed in the axial, sagittal, and coronal planes. IV contrast was not administered for this examination as per the referring clinician. Note that the abdominal CT was performed in suboptimal fashion without oral and IV contrast. The examination is also degraded by mo tion artifact, as well as by streak artifact from the right arm which could not elevated above the ab domen. A dose lowering technique was utilized adhering to the principles of ALARA. FINDINGS: Lung bases: The heart is enlarged and without pericardial effusion. Pacemaker leads are noted. The co ronary arteries are densely calcified. There is a small hiatal hernia. The lung bases are clear notin g bibasilar scarring/atelectasis. Liver: Evaluation of the liver is degraded by streak artifact. The unenhanced liver is normal in size , contour, and attenuation. There is no intrahepatic biliary ductal dilatation. Gallbladder: Surgically absent noting clips in the gallbladder fossa. Spleen: Normal in size and attenuation. Pancreas: The unenhanced pancreas is mildly atrophic and grossly unremarkable. Adrenal glands: Unremarkable. Kidneys: The unenhanced kidneys are atrophic and without hydronephrosis. There are no renal calculi i dentified. There is no evidence of contour deforming renal mass lesion. Abdominal vasculature: There is advanced atherosclerotic calcification and mild ectasia of the abdomi nal aorta. Bowel: There is moderate colonic diverticulosis without CT evidence of acute diverticulitis. No bowel obstruction is seen. Colonic fecal retention is observed. The appendix is not identified. There is a large duodenal diverticulum. Peritoneum: There is no intraperitoneal free air or abdominal ascites. There is a tiny hiatal hernia. Lymphadenopathy: None. Pelvic viscera: The prostate gland is enlarged and heterogeneous noting median lobe hypertrophy. The bladder wall is mildly thickened and trabeculated indicating chronic outlet obstruction. Skeletal structures: The skeletal structures are heterogeneously osteopenic. No lytic or blastic lesi ons are seen. LUMBAR SPINE: Vertebral body height is maintained throughout the the lumbar spine. There is minimal r etrolisthesis at L2-L3 and L3-L4. Alignment is otherwise preserved. There is straightening of the lum bar lordosis. Anterior and lateral marginal osteophytes are seen throughout. The transverse and spino us processes are intact. There is no evidence of spondylolysis. There is moderate to advanced disc sp yg narrowing at L2-L3 with associated endplate sclerosis. Mild to moderate disc space narrowing is s een at the remaining lumbar levels. Posterior disc osteophyte complexes are seen from L2-L3 through L 5-S1 and likely contribute to multilevel acquired compromise of the central canal. Facet arthropathy seen in the lower lumbar region. There is mild fatty atrophy of the paraspinous musculature. IMPRESSION: 1. Suboptimal examination without oral and IV contrast. The examination is also degraded by streak an d motion artifact. 2. There are no acute infectious or inflammatory findings in the abdomen or pelvis. 3. Moderate colonic diverticulosis without CT evidence of acute diverticulitis. 4. Cardiomegaly and cardiac pacemaker. 5. There is no evidence of fracture or malalignment involving the lumbar spine. 6. Osteopenia and lumbosacral spondylosis as above. This is similar to previous. Electronically signed by: Ervin Aguilar M.D. 10/09/2018 1:29 PM
--- NOTE | 2018-10-09 13:44 | Emergency Department Note ---
Entered by Blanca Raymundo acting as a scribe for Abhijeet Tsai MD History of Present Illness General Chief complaint: Weakness Time Seen by Provider: 10/09/18 12:13 Source: patient and friends History of Present Illness Provider complaint: Weakness Onset (ago): day(s) (a few days ago) Location: lower extremity Pain Consistency: + other (worsening) Maximum Pain Intensity: 6 Quality: + other (weakness) Associated symptoms: + denies other symptoms (vision changes) and + other (dark urine, urinary incontinence, chronic back pain); no chest pain, no headaches, no shortness of breath, no syncope and no weakness (arm) The patient is a 78 year old male who present to the ED with worsening weakness that began a few days ago. The patient was at [facility] [place] on Sunday with similar weakness; however the patient states that he can no longer walk or balance himself at this time. The patient states that he must balance himself on stationary objects in order to move. The patients friend states that he fell off the toilet yesterday and hurt his back. She states that he is unable to take care of himself at home. The patient states he suffers from chronic back pain due to an injury many years ago. The patient states that he has had episodes of incontinence while sleeping that began 2 days ago with dark urine. The patient denies syncope, headache, vision changes, arm weakness, chest pain, shortness of breath, abdominal pain and fever. Home Medications Home Medications Medication Instructions Recorded Confirmed Type amiodarone 300 mg PO DAILY 03/20/18 10/09/18 History aspirin 325 mg PO UD 03/20/18 10/09/18 History lisinopril 20 mg PO DAILY 03/20/18 10/09/18 History lorazepam 1 mg PO Q8H PRN 03/20/18 10/09/18 History magnesium 100 mg PO BID 03/20/18 10/09/18 History metoprolol succinate [Toprol XL] 25 mg PO DAILY 03/20/18 10/09/18 History polyethylene glycol 3350 [Miralax] 17 g PO DAILY PRN 03/20/18 10/09/18 History furosemide 20 mg PO DAILY 10/06/18 10/09/18 History levothyroxine 25 mcg PO DAILY 10/06/18 10/09/18 History potassium chloride 20 meq PO DAILY #5 tab 10/06/18 10/09/18 Rx loratadine 10 mg PO DAILY 10/09/18 10/09/18 History Allergies Allergy/AdvReac Type Severity Reaction Status Date / Time ciprofloxacin [From Cipro] Allergy Unknown Unverified 10/06/18 12:08 allantoin [From Orajel] AdvReac Unknown Unverified 10/06/18 12:08 benzalkonium chloride AdvReac Unknown Unverified 10/06/18 12:08 [From Orajel] benzocaine [From Orajel] AdvReac Unknown Unverified 10/06/18 12:08 carbamide peroxide AdvReac Unknown Unverified 10/06/18 12:08 [From Orajel] zinc chloride [From Orajel] AdvReac Unknown Unverified 10/06/18 12:08 Past Med/Surg History Medical History Back pain (Chronic) HTN (hypertension) (Chronic) Dyslipidemia (Chronic) Idiopathic cardiomyopathy (Chronic) "TTE 09/01/2013 - Normal LV systolic function without regional wall motion abnormality, EF 55-60%. Cath 08/18/2015 - moderate LV dysfunction, EF 40%, diffuse LV hypokinesis TTE 05/01/2016 - mild conc LVH, LVEF 60-65%, grade II diastolic dysfunction" On 09/08/15 10:57 Xochilt Yuan wrote "cath 08/18/2015- moderate LV dysfunction, EF 40%, diffuse LV hypokinesis TTE 09/01/2013- Normal LV systolic function without regional wall motion abnormality, EF 55-60%." Sleep apnea (Chronic) AICD (automatic cardioverter/defibrillator) present (Chronic) BPH (benign prostatic hypertrophy) (Chronic) GERD (gastroesophageal reflux disease) (Chronic) PVT (paroxysmal ventricular tachycardia) (Chronic) Gout (Chronic) Anxiety (Chronic) Surgical History S/P appendectomy (Chronic) S/P laparoscopic cholecystectomy (Chronic) History of implantable cardioverter-defibrillator (ICD) placement (Chronic) Social History Preferred Language: Burmese Communication Ability: Effective Visual Impairment: No Limitations Hearing Ability: Hard of Hearing Foundation Director Required: No Beliefs That Will Affect Care: None marital status: / Current Living Situation: Alone current occupational status: retired Other Information That Helps Us Care for You: No Feels Safe at Home: Yes Safety Concerns: Feels Safe At This Time Smoking Status: Never smoker Do You Dip or Chew Tobacco: No Hx Alcohol Use: No Hx Substance Use: No Review of Systems See HPI for pertinent positives & negatives. and A total of 10 systems reviewed and were otherwise negative Physical Exam Vital Signs Vital Signs - 24 hr 10/09/18 11:36 10/09/18 13:19 10/09/18 15:04 Temperature 37.0 C Temperature Source Oral Sepsis New/Unexplained Change in Mental Status No Sepsis Action Taken by Nursing No Action Required Pulse Rate 90 Pulse Rate [Apical] 84 88 Pulse Rhythm Regular Pulse Rhythm [Apical] Regular Regular Pulse Strength Normal Pulse Strength [Apical] Normal Respiratory Rate 20 20 19 Respiratory Effort / Characteristics Non-Labored Spontaneous Non-Labored Spontaneous Non-Labored Spontaneous Respiratory Depth Normal Normal Normal Respiratory Pattern Regular Regular Regular Blood Pressure 160/95 H Blood Pressure [Right Arm] 143/83 H 159/78 H Blood Pressure Mean 116 Blood Pressure Mean [Right Arm] 103 105 Pulse Oximetry 93 93 94 Oxygen Delivery Method Room Air Room Air Room Air 10/09/18 15:54 10/09/18 16:00 Temperature Temperature Source Sepsis New/Unexplained Change in Mental Status Sepsis Action Taken by Nursing Pulse Rate Pulse Rate [Apical] 87 Pulse Rhythm Pulse Rhythm [Apical] Pulse Strength Pulse Strength [Apical] Respiratory Rate 20 Respiratory Effort / Characteristics Non-Labored Spontaneous Respiratory Depth Normal Respiratory Pattern Regular Blood Pressure Blood Pressure [Right Arm] 155/82 H Blood Pressure Mean Blood Pressure Mean [Right Arm] 106 Pulse Oximetry 93 Oxygen Delivery Method Room Air Room Air General: Chronically ill appearing older male in no acute distress. HEENT: Normal cephalic atraumatic. Pupils are equal round and reactive to light. Extraocular movements are intact. Oropharynx is pink with moist mucous membranes. No swelling of the mouth lips or tongue. Neck: Supple with a midline trachea. No meningeal signs or stiffness, no JVD or bruits. No Stridor. Chest: Clear to auscultation bilaterally. No wheezes or rhonchi. No increased work of breathing. Defibrillator in left chest. Heart: regular rate and rhythm. Abdomen: Soft nontender, nondistended without rebound guarding or rigidity. Extremities: No cyanosis clubbing. Trace pedal edema in bilateral legs. No calf tenderness or asymmetry Spine/Back. Non tender to palpation. No CVA tenderness Skin: Good turgor without rashes. Neurologic exam: Cranial nerves two through 12 are intact. Motor and sensation are intact and symmetrical throughout. Course 1215: The patient was evaluated in room C7. A history and a physical were performed. 1425: I reevaluated the patient. I updated him on his test results and the treatment plan. He verbally agrees and understands. 1428: I discussed the patient's case with Dr. Fausto Sapp. They will evaluate they patient for further management. Consultations Consultation #1: I discussed the patient's case with Dr. Fausto Sapp. They will evaluate they patient for further management. Time: 14:28 Medical Decision Making Differential Diagnosis Differential diagnosis includes trauma, intracranial process, lumbar spine proce ss, infection, UTI, cardiac disease, electrolyte and metabolic abnormalities. Medical Records Attestation: I reviewed the patient's medical records. Home Medications Current Medication List: was personally reviewed by me Laboratory Data Attestation: I reviewed the patient's lab results. Result diagrams: 10/09/18 12:40 10/09/18 12:40 Lab Results 10/09/18 10/09/18 10/09/18 Range/Units 12:40 12:40 12:56 WBC 8.97 (4.8-10.8) K/uL RBC 5.29 (4.7-6.1) M/uL Hgb 15.2 (14.0-18.0) g/dL Hct 43.5 (42-52) % MCV 82.2 (80-100) fL MCH 28.7 (25-34) pg MCHC 34.9 (32-36) g/dL RDW Std Deviation 46.0 (36.4-46.3) fL RDW Coeff of Jesus 15.3 H (11.5-14.5) % Plt Count 174 (130-400) K/uL MPV 8.6 (7.4-10.4) fL Immature Gran % (Auto) 0.3 % Neut % (Auto) 76.7 % Lymph % (Auto) 12.6 % Cedar % (Auto) 9.8 % Eos % (Auto) 0.4 % Baso % (Auto) 0.2 % Immature Gran # (Auto) 0.03 H (0.00-0.02) K/uL Neut # (Auto) 6.87 H (1.4-6.5) K/uL Lymph # (Auto) 1.13 L (1.2-3.4) K/uL Cedar # (Auto) 0.88 H (0.11-0.59) K/uL Eos # (Auto) 0.04 (0-0.5) K/uL Baso # (Auto) 0.02 (0-0.2) K/uL Sodium 134 L (136-145) mmol/L Potassium 4.1 (3.5-5.1) mmol/L Chloride 104 (98-107) mmol/L Carbon Dioxide 23 (21-32) mmol/L Anion Gap 7.0 (3-11) BUN 29 H (7-18) mg/dl Creatinine 1.51 H (0.6-1.4) mg/dl Est Cr Clr Drug Dosing 56.1 ml/min Est GFR ( Amer) 50.9 Est GFR (Non-Af Amer) 43.9 BUN/Creatinine Ratio 19.0 (10-20) Glucose 102 H (70-99) mg/dl Calcium 8.3 L (8.5-10.1) mg/dl Total Bilirubin 0.8 (0.2-1) mg/dl AST 37 (15-37) U/L ALT 29 (12-78) U/L Alkaline Phosphatase 120 H (45-117) U/L Total Creatine Kinase 128 (39-308) U/L Troponin I < 0.015 (0-0.045) ng/ml NT-Pro-B Natriuret Pep 910 (0-1800) pg/ml Total Protein 6.7 (6.4-8.2) gm/dl Albumin 3.0 L (3.4-5.0) gm/dl Globulin 3.7 (2.5-4.0) gm/dl Albumin/Globulin Ratio 0.8 L (0.9-2) TSH 3.110 (0.300-4.500) uIu/ml Urine Color Nona Urine Appearance Turbid A (Clear) Urine pH 5.0 (4.5-7.5) Ur Specific Buford 1.022 (1.000-1.030) Urine Protein 1+ H (Negative) Urine Glucose (UA) Negative (Negative) Urine Ketones Negative (Negative) Urine Blood 3+ H (Negative) Urine Nitrite Negative (Negative) Urine Bilirubin Negative (Negative) Urine Urobilinogen Negative (Negative) Ur Leukocyte Esterase 2+ H (Negative) Urine WBC (Auto) 5-10 H (0-5) /hpf Urine RBC (Auto) >30 H (0-4) /hpf U Hyaline Cast (Auto) 1-5 (0-5) /lpf U Epithel Cells (Auto) 5-10 H (0-5) /lpf Urine Bacteria (Auto) 2+ H (Negative) WBC Casts 1-5 H (0) /lpf Urine Mucus Present A (None Prsent) Urine Yeast Not Reportable Imaging Data Radiologist's Impression: Radiology results as stated below per my review and the radiologist's interpretation: XR chest 1V portable HISTORY: weakness COMPARISON: Chest 10/06/2018. FINDINGS: No pneumothorax. No pleural effusions. The heart remains mildly enlarged. Left-sided asymmetric/defibrillator. No focal lung consolidations to suggest pneumonia. Mild interstitial thickening at the lung bases which is likely chronic. No evidence for pulmonary edema. IMPRESSION: Mild cardiac megaly and mild basilar interstitial thickening. This is likely chronic. Otherwise, no acute process within the chest. Electronically signed by: Los Frausto M.D. 10/09/2018 1:[address]AST CT DOSE: 2972.21 mGy.cm HISTORY: eval for weakness TECHNIQUE: Multiaxial CT images of the head were performed without the use of intravenous contrast. Automated exposure control was utilized for this study. A dose lowering technique was utilized adhering to the principles of ALARA. Comparison: Head CT 03/20/2018. Findings: Small amount of bubbly secretions within the left sphenoid sinus, unchanged. The mastoid air cells are clear. The calvarium and skull base are intact. There is no mass, hematoma, midline shift, acute infarct. White matter hypodensity is nonspecific but suggestive of microvascular ischemic change. The ventricles and sulci demonstrate mild age-related involutional changes. 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 Impression: No significant change compared to the prior study. No acute intracranial abnormality. Electronically signed by: Los Frausto M.D. 10/09/2018 1:[address] SCAN OF THE ABDOMEN AND PELVIS WITHOUT IV CONTRAST; CT SCAN OF THE LUMBAR SPINE WITHOUT IV CONTRAST CLINICAL HISTORY: Generalized abdominal pain. Back pain. COMPARISON STUDY: Abdominal CT dated 12/31/2017. TECHNIQUE: CT scan of the abdomen and pelvis is performed from the lung bases to the proximal femora. Additionally, CT scan of the lumbar spine is performed from the lower thoracic spine to the sacrum. Images for both examinations are reviewed in the axial, sagittal, and coronal planes. IV contrast was not administered for this examination as per the referring clinician. Note that the abdominal CT was performed in suboptimal fashion without oral and IV contrast. The examination is also degraded by motion artifact, as well as by streak artifact from the right arm which could not elevated above the abdomen. A dose lowering technique was utilized adhering to the principles of ALARA. FINDINGS: Lung bases: The heart is enlarged and without pericardial effusion. Pacemaker l olesya are noted. The coronary arteries are densely calcified. There is a small hiatal hernia. The lung bases are clear noting bibasilar scarring/atelectasis. Liver: Evaluation of the liver is degraded by streak artifact. The unenhanced liver is normal in size, contour, and attenuation. There is no intrahepatic biliary ductal dilatation. Gallbladder: Surgically absent noting clips in the gallbladder fossa. Spleen: Normal in size and attenuation. Pancreas: The unenhanced pancreas is mildly atrophic and grossly unremarkable. Adrenal glands: Unremarkable. Kidneys: The unenhanced kidneys are atrophic and without hydronephrosis. There are no renal calculi identified. There is no evidence of contour deforming renal mass lesion. Abdominal vasculature: There is advanced atherosclerotic calcification and mild ectasia of the abdominal aorta. Bowel: There is moderate colonic diverticulosis without CT evidence of acute diverticulitis. No bowel obstruction is seen. Colonic fecal retention is observed. The appendix is not identified. There is a large duodenal diverticulum. Peritoneum: There is no intraperitoneal free air or abdominal ascites. There is a tiny hiatal hernia. Lymphadenopathy: None. Pelvic viscera: The prostate gland is enlarged and heterogeneous noting median lobe hypertrophy. The bladder wall is mildly thickened and trabeculated indicating chronic outlet obstruction. Skeletal structures: The skeletal structures are heterogeneously osteopenic. No lytic or blastic lesions are seen. LUMBAR SPINE: Vertebral body height is maintained throughout the the lumbar spine. There is minimal retrolisthesis at L2-L3 and L3-L4. Alignment is otherwise preserved. There is straightening of the lumbar lordosis. Anterior and lateral marginal osteophytes are seen throughout. The transverse and spinous processes are intact. There is no evidence of spondylolysis. There is moderate to advanced disc space narrowing at L2-L3 with associated endplate sclerosis. Mild to moderate disc space narrowing is seen at the remaining lumbar levels. Posterior disc osteophyte complexes are seen from L2-L3 through L5-S1 and likely contribute to multilevel acquired compromise of the central canal. Facet arthropathy seen in the lower lumbar region. There is mild fatty atrophy of the paraspinous musculature. IMPRESSION: 1. Suboptimal examination without oral and IV contrast. The examination is also degraded by streak and motion artifact. 2. There are no acute infectious or inflammatory findings in the abdomen or pelvis. 3. Moderate colonic diverticulosis without CT evidence of acute diverticulitis. 4. Cardiomegaly and cardiac pacemaker. 5. There is no evidence of fracture or malalignment involving the lumbar spine. 6. Osteopenia and lumbosacral spondylosis as above. This is similar to previous. Electronically signed by: Ervin Aguilar M.D. 10/09/2018 1:29 PM ECG Data Attestation: I personally reviewed and interpreted this ECG as follows: Indication: weakness Rate (beats per minute): 90 Rhythm: normal sinus Findings: + other (nonspecific ventricular conduction delay) and + 1st degree AV block; no PAC, no PVC, no ST depression, no ST elevation, no acute ischemic change and no ectopy Comparison ECG Date: from (10/06/2018) Change: no significant change Blood Pressure Blood Pressure Findings: Elevated blood pressure Blood Pressure Disposition: further management by hospitalist SHANTA Narrative This patient comes in as described above. He was placed in room C7. He lives alone and has had increasing weakness where he can get out of bed and care for himself. He has had no fever. IV access was established and blood work was obtained. EKG was obtained as well as CAT scan of the head and multiple blood testing. He was reassessed frequently. EKG does not suggest acute coronary syndrome or arrhythmia. He has nothing to suggest sepsis or infection is no acute electrolyte or metabolic abnormalities. Urinalysis could possibly be a UTI it was suboptimal with epithelial cells. CAT scan of his head is unremarkable. The patient cannot care for himself and is very weak at home and I do think needs to be admitted/observed. I have consult the [facility] hospitalist to see him in the ER for these measures. Impression & Plan Weakness, Back pain, Fall Discharge Plan Visit Data Chief Complaint: Weakness ED Provider: Abhijeet Tsai Discharge Problem: Weakness, Back pain, Fall Patient Disposition: Being Evaluated by Hospitalist Discharge Instructions Interventions: ED Discharge Assessment Last Done: 10/09/18 17:37 The scribe's documentation has been prepared under my direction and personally reviewed by me in its entirety. I confirm that the note above accurately reflects all work, treatment, procedures, and medical decision making performed by me.
--- NOTE | 2018-10-09 14:36 | History & Physical Report ---
Date of Service October 09, 2018 Assessment & Plan (1) Weakness: Generalized weakness Ambulatory Dysfunction H/O Falls H/O poor appetite CT head, Lumbar CT: No acute change TSH: Normal DD: Weakness, poor appetite due to Amiodarone To R/O UTI NIMCO, mild dehydration due to diuretics Patient is reluctant to decreased Amiodarone dose as per Cardiology Pacemaker Interrogation PT/OT Patient lives alone May need Rehab placement NIMCO: Likely Prerenal due to diuretics Hold Lisinopril, Lasix for now Gentle IV fluids Monitor renal function Abnormal UA: Denies Urinary Symptoms No signs of Sepsis Urine Cx:pending Start on Rocephin Idiopathic cardiomyopathy Monitor Volume Status, I/Os, daily weight Resume Lasix as able Update ECHO H/O ventricular tachycardia S/P ICD Tele monitoring ICD interrogation requested Continue Amiodarone Hypothyroidism TSH: Normal Continue Levothyroxine Hypertension Continue Metoprolol Lisinopril held due to NIMCO Anxiety disorder Ativan PRN No acute issues DVT Px: Heparin SQ Code Status: DNI/DNR as per my discussion with patient Disposition: May need Rehab placement History of Present Illness . Chief Complaint: Generalized weakness Primary Care Provider: Ed Garcia DO Patient is a 78-year-old male with history of Idiopathic cardiomyopathy, ventricular tachycardia S/P ICD, hypothyroidism, hypertension, hyperlipidemia, hearing impairment, sleep apnea, anxiety disorder and other problems presents with history of worsening generalized weakness, balance issues with ambulation, decreased appetite, multiple falls lately. Patient states that he noticed having" shakiness"' on Sunday which prompted him to ED 2 days ago. During his ER visit 2 days ago, he was thought to be in mild CHF and his Lasix was increased from 20 mg to 40 mg daily and was asked to continue with the dose, follow up with his PCP and was discharged home. Patient felt better after the increased dose of Lasix but this morning patient fell backwards onto his bed, which he states is secondary to lumpy mattress. He states that his ambulation has been difficult secondary to balance issues and currently has been using a cane. He was evaluated by his kiln mechanic recently who recommended to decrease the dose of amiodarone to 200 mg daily but patient was reluctant secondary to history of multiple ICD shocks in the past. He states having very poor appetite since many months. 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 He has difficulty chewing food as a result. Denies any history of chest pain, SOB, palpitations, dizziness, cough, wheezing, fever, chills, head trauma, LOC, headache, nausea, vomiting, abdominal pain, diarrhea, dysuria, hematuria. He states that he is due for echo to be done tomorrow. Allergies Allergy/AdvReac Type Severity Reaction Status Date / Time ciprofloxacin [From Cipro] Allergy Unknown Unverified 10/06/18 12:08 allantoin [From Orajel] AdvReac Unknown Unverified 10/06/18 12:08 benzalkonium chloride AdvReac Unknown Unverified 10/06/18 12:08 [From Orajel] benzocaine [From Orajel] AdvReac Unknown Unverified 10/06/18 12:08 carbamide peroxide AdvReac Unknown Unverified 10/06/18 12:08 [From Orajel] zinc chloride [From Orajel] AdvReac Unknown Unverified 10/06/18 12:08 Home Medications Home Medications Medication Instructions Recorded Confirmed Type amiodarone 300 mg PO DAILY 03/20/18 10/09/18 History aspirin 325 mg PO UD 03/20/18 10/09/18 History lisinopril 20 mg PO DAILY 03/20/18 10/09/18 History lorazepam 1 mg PO Q8H PRN 03/20/18 10/09/18 History magnesium 100 mg PO BID 03/20/18 10/09/18 History metoprolol succinate [Toprol XL] 25 mg PO DAILY 03/20/18 10/09/18 History polyethylene glycol 3350 [Miralax] 17 g PO DAILY PRN 03/20/18 10/09/18 History furosemide 20 mg PO DAILY 10/06/18 10/09/18 History levothyroxine 25 mcg PO DAILY 10/06/18 10/09/18 History potassium chloride 20 meq PO DAILY #5 tab 10/06/18 10/09/18 Rx loratadine 10 mg PO DAILY 10/09/18 10/09/18 History Past Med/Surg History Medical History Back pain (Chronic) HTN (hypertension) (Chronic) Dyslipidemia (Chronic) Idiopathic cardiomyopathy (Chronic) "TTE 09/01/2013 - Normal LV systolic function without regional wall motion abnormality, EF 55-60%. Cath 08/18/2015 - moderate LV dysfunction, EF 40%, diffuse LV hypokinesis TTE 05/01/2016 - mild conc LVH, LVEF 60-65%, grade II diastolic dysfunction" On 09/08/15 10:57 Xochilt Lissy wrote "cath 08/18/2015- moderate LV dysfunction, EF 40%, diffuse LV hypokinesis TTE 09/01/2013- Normal LV systolic function without regional wall motion abnormality, EF 55-60%." Sleep apnea (Chronic) AICD (automatic cardioverter/defibrillator) present (Chronic) BPH (benign prostatic hypertrophy) (Chronic) GERD (gastroesophageal reflux disease) (Chronic) PVT (paroxysmal ventricular tachycardia) (Chronic) Gout (Chronic) Anxiety (Chronic) Surgical History S/P appendectomy (Chronic) S/P laparoscopic cholecystectomy (Chronic) History of implantable cardioverter-defibrillator (ICD) placement (Chronic) Social History Preferred Language: [place]i Communication Ability: Effective Visual Impairment: No Limitations Hearing Ability: Hard of Hearing [place] Guide Required: No Beliefs That Will Affect Care: None marital status: / Current Living Situation: Alone current occupational status: retired Other Information That Helps Us Care for You: No Feels Safe at Home: Yes Safety Concerns: Feels Safe At This Time Smoking Status: Never smoker Do You Dip or Chew Tobacco: No Hx Alcohol Use: No Hx Substance Use: No Review of Systems Review of Systems: All systems reviewed & are unremarkable except as noted in HPI & below Physical Exam Physical Exam: Physical Exam: Vitals signs as noted above General Appearance:Moderately built and nourished, no apparent distress Head: normocephalic, Atraumatic, +Hearing aids Eyes: normal inspection, EOMI Neck: supple, Trachea midline Respiratory/Chest: Normal breath sounds, CTA Cardiovascular: S1, S2, No murmur Chest: Pacemaker on Left side of chest Abdomen/GI:Soft, Non tender, Bowel sounds present Extremities/Musculoskelatal:normal inspection, 1+ B/L LE edema Neurologic/Psych:AAOX3, grossly no focal neurological deficits Skin: normal color, warm Results & Data Vital Signs (Past 12 Hours) Vital Signs Temp Pulse Pulse Resp BP BP Pulse Ox 10/09/18 13:19 84 20 143/83 H 93 10/09/18 11:36 37.0 C 90 20 160/95 H 93 Laboratory Results Short CBC 10/09/18 Range/Units 12:40 WBC 8.97 (4.8-10.8) K/uL Hgb 15.2 (14.0-18.0) g/dL Hct 43.5 (42-52) % Plt Count 174 (130-400) K/uL BMP 10/09/18 12:40 Sodium 134 L Potassium 4.1 Chloride 104 Carbon Dioxide 23 BUN 29 H Creatinine 1.51 H Glucose 102 H Calcium 8.3 L Cardiac Enzymes 10/09/18 Range/Units 12:40 Total Creatine Kinase 128 (39-308) U/L Troponin I < 0.015 (0-0.045) ng/ml Liver Function 10/09/18 Range/Units 12:40 Total Bilirubin 0.8 (0.2-1) mg/dl AST 37 (15-37) U/L ALT 29 (12-78) U/L Alkaline Phosphatase 120 H (45-117) U/L Albumin 3.0 L (3.4-5.0) gm/dl Urine 10/09/18 Range/Units 12:56 Urine Color [place] Urine Appearance Turbid A (Clear) Urine pH 5.0 (4.5-7.5) Ur Specific [place] 1.022 (1.000-1.030) Urine Protein 1+ H (Negative) Urine Glucose (UA) Negative (Negative) Diagnostic Findings CT ABD: 1. Suboptimal examination without oral and IV contrast. The examination is also degraded by streak and motion artifact. 2. There are no acute infectious or inflammatory findings in the abdomen or pelvis. 3. Moderate colonic diverticulosis without CT evidence of acute diverticulitis. 4. Cardiomegaly and cardiac pacemaker. 5. There is no evidence of fracture or malalignment involving the lumbar spine. 6. Osteopenia and lumbosacral spondylosis as above. This is similar to previous. Lumbar CT: 1. Suboptimal examination without oral and IV contrast. The examination is also degraded by streak and motion artifact. 2. There are no acute infectious or inflammatory findings in the abdomen or pelvis. 3. Moderate colonic diverticulosis without CT evidence of acute diverticulitis. 4. Cardiomegaly and cardiac pacemaker. 5. There is no evidence of fracture or malalignment involving the lumbar spine. 6. Osteopenia and lumbosacral spondylosis as above. This is similar to previous. CT head: No significant change compared to the prior study. No acute intracranial abnormality. CXR: Mild cardiacmegaly and mild basilar interstitial thickening. This is likely chronic. Otherwise, no acute process within the chest.
[2018-10-09] MEDS ORDERED: cefTRIAXone SODIUM 1,000 MG in DEXTROSE 5% 50 ML IV SCH (18:41)
[2018-10-09] MEDS ORDERED: SODIUM CHLORIDE 0.9% 500 ML IV ONE (18:41)
[2018-10-09] MEDS ORDERED: ACETAMINOPHEN 325 MG TAB PO PRN (18:41)
[2018-10-09] MEDS ORDERED: POLYETHYLENE (MIRALAX) 17 GM PACK PO PRN (18:41)
[2018-10-09] MEDS ORDERED: LORazepam 1 MG TAB PO PRN (18:41)
[2018-10-09] MEDS ORDERED: AMIODARONE 200 MG TAB PO ONE (19:04)
[2018-10-09] MEDS: cefTRIAXone SODIUM 2,000 MG in DEXTROSE 5% 50 ML IV SCH (19:56)
[2018-10-09 20:11] LABS: INR 1.1 (0.9-1.1); Partial Thromboplastin Ratio 1.1; Partial Thromboplastin Time 29.3 Seconds (21.0-31.0); Prothrombin Time 10.9 Seconds (9.0-12.0)
[2018-10-09] MEDS: ASPIRIN 325 MG ECTAB PO SCH (20:46)
[2018-10-09] MEDS: HEPARIN SOD 5,000 UNIT/0.5 ML VIAL SQ SCH (20:58)
[2018-10-09] MEDS ORDERED: NON-FORMULARY MEDICATION (Magnesium 100 MG) PO SCH (21:00)
[2018-10-10] MEDS: LEVOTHYROXINE SODIUM 25 MCG TABLET PO SCH (05:36)
[2018-10-10 06:34] LABS: Hematocrit (blood only) 42.2 % (42-52); Hemoglobin 14.5 g/dL (14.0-18.0); Mean Corpuscular Hgb Conc 34.4 g/dL (32-36); Mean Corpuscular Volume 83.2 fL (80-100); Mean Platelet Volume 8.2 fL (7.4-10.4); Platelet Count 192 K/uL (130-400); RDW Coefficient of Variation 15.4 % (11.5-14.5); RDW Standard Deviation 46.8 fL (36.4-46.3); Red Blood Count 5.07 M/uL (4.7-6.1); White Blood Count 8.48 K/uL (4.8-10.8)
[2018-10-10 07:08] LABS: BUN Creatinine Ratio 17.7 (10-20); Calcium 8.2 mg/dl (8.5-10.1); Creatinine Clr Calc Pharmacy 53.1 ml/min; Est GFR (African American) 45.7; Est GFR (Non-African American) 39.5; Magnesium 2.6 mg/dl (1.8-2.4); Potassium 3.8 mmol/L (3.5-5.1)
[2018-10-10] MEDS ORDERED: PERFLUTREN LIPID MICROSPHERE (DEFINITY) IV ONE (08:42)
[2018-10-10] MEDS: AMIODARONE 200 MG TAB PO SCH (08:48)
[2018-10-10] MEDS: ASPIRIN 325 MG ECTAB PO SCH ×2 (08:49→20:08)
[2018-10-10] MEDS: HEPARIN SOD 5,000 UNIT/0.5 ML VIAL SQ SCH ×2 (08:49→20:08)
[2018-10-10] MEDS: METOPROLOL SUCC 25MG EXT REL TAB PO SCH (08:49)
[2018-10-10] MEDS: LORATADINE 10 MG TAB PO SCH (08:49)
[2018-10-10] MEDS: cefTRIAXone SODIUM 2,000 MG in DEXTROSE 5% 50 ML IV SCH (18:51)
--- NOTE | 2018-10-10 21:35 | Hospitalist Progress Note ---
Date of Service October 10, 2018 Assessment & Plan (1) Acute kidney injury: Creatinine 1.51 day of admission, compared to baseline of around 1. Recently resumed diuretic therapy with furosemide. No apparent urinary tract obstruction on CT of abdomen / pelvis. Furosemide held. Creatinine today = 1.65. Follow. (2) Fall at home: PT / OT evals. (3) Congestive heart failure: History of chronic left ventricular systolic heart failure with LVEF of 40% in 2016. Follow-up echo in 2017 showed improved LVEF. Idiopathic cardiomyopathy. Compensated. Continue metoprolol succinate. Furosemide and lisinopril on hold due to NIMCO. Follow. (4) History of ventricular tachycardia: S/P implantation ICD. On amiodarone 300 mg daily. No recent VT or discharges. Continue telemetry. (5) HTN (hypertension): Lisinopril held because of NIMCO. Continue metoprolol. Resume lisinopril as renal function improves. (6) Abnormal urinalysis: UA showed WBC's, RBC's, bacteria. No urinary symptoms. No apparent calculi or other urinary tract abnormalities on CT abdomen and pelvis (without contrast). Urine culture negative so far. May need urologic evaluation. (7) Hypothyroidism: TSH normal. Continue levothyroxine. (8) DVT prophylaxis: SQ heparin. Ambulate. (9) Discharge planning issues: Discharge disposition to be determined. May need skilled care or inpt rehab. Internal Medicine follow-up with Dr. Garcia. EP Cardiology follow-up with Dr. Villareal. Subjective Recheck for multiple problems. Patient seen in their room around 1600. Feels a little better today, but still weaker than baseline. No chest pain or SOB. No palpitations or discharge of ICD. Urine dark, but no dysuria, hesitancy, frequency. Review of Systems: Constitutional- no fever. Cardiac- as noted above. Pulmonary- no cough or SOB. GI- no nausea, vomiting, diarrhea, melena, hematochezia. - no urinary symptoms. Otherwise, as noted above. Physical Exam Constitutional: no acute distress Respiratory: no respiratory distress Auscultation: lungs clear to auscultation bilaterally Cardiovascular: Rate/Rhythm: regular rate and regular rhythm Heart Sounds: no gallop Vessels: no JVD Extremities: no calf tenderness and no edema Gastrointestinal (Abdomen): normal bowel sounds, soft, nontender, no hepatosplenomegaly Skin: no rashes, warm and dry Psychiatric: Orientation: alert and oriented x 3 Results & Data Vital Signs (Past 12 Hours) Vital Signs Temp Pulse Resp BP BP Pulse Ox 10/10/18 18:00 37.1 C 80 20 136/78 94 10/10/18 14:51 36.5 C 85 22 152/81 H 94 10/10/18 12:00 37.0 C 76 20 160/75 H 93 Laboratory Results Laboratory Tests 10/10/18 06:24 Sodium 135 L Potassium 3.8 Chloride 104 Carbon Dioxide 25 BUN 29 H Creatinine 1.65 H Glucose 103 H (1) Fall at home Encounter type: initial encounter Qualified Code(s): W19.XXXA - Unspecified fall, initial encounter; Y92.009 - Unspecified place in unspecified non- institutional (private) residence as the place of occurrence of the external cause (2) Congestive heart failure Heart failure chronicity: acute on chronic Heart failure type: unspecified Qualified Code(s): I50.9 - Heart failure, unspecified
[2018-10-11] MEDS: LEVOTHYROXINE SODIUM 25 MCG TABLET PO SCH (05:21)
[2018-10-11 06:32] LABS: BUN Creatinine Ratio 20.1 (10-20); Calcium 8.7 mg/dl (8.5-10.1); Est GFR (African American) 53.9; Est GFR (Non-African American) 46.5
[2018-10-11] MEDS: AMIODARONE 200 MG TAB PO SCH (08:54)
[2018-10-11] MEDS: METOPROLOL SUCC 25MG EXT REL TAB PO SCH (08:55)
[2018-10-11] MEDS: ASPIRIN 325 MG ECTAB PO SCH ×2 (08:55→20:40)
[2018-10-11] MEDS: LORATADINE 10 MG TAB PO SCH (08:55)
[2018-10-11] MEDS: HEPARIN SOD 5,000 UNIT/0.5 ML VIAL SQ SCH ×2 (08:56→20:40)
[2018-10-11] MEDS: cefTRIAXone SODIUM 2,000 MG in DEXTROSE 5% 50 ML IV SCH (19:17)
--- NOTE | 2018-10-12 00:23 | Hospitalist Progress Note ---
Date of Service October 11, 2018 Assessment & Plan (1) Acute kidney injury: Creatinine 1.51 day of admission, compared to baseline of around 1. Recently resumed diuretic therapy with furosemide. No apparent urinary tract obstruction on CT of abdomen / pelvis. Furosemide held. Creatinine today = 1.44. CHF compensated; continue to hold furosemide. Resume lisinopril with caution. Follow. (2) Fall at home: PT / OT elizabethals. (3) Congestive heart failure: History of chronic left ventricular systolic heart failure with LVEF of 40% in 2016. Follow-up echo in 2017 showed improved LVEF. Idiopathic cardiomyopathy. Compensated. Continue metoprolol succinate. Furosemide and lisinopril on hold due to NIMCO. CHF compensated; continue to hold furosemide. Resume lisinopril with caution. Follow. (4) History of ventricular tachycardia: S/P implantation ICD. On amiodarone 300 mg daily. No recent VT or discharges. Continue telemetry. (5) HTN (hypertension): Lisinopril held because of NIMCO. Continue metoprolol. Resume lisinopril with caution. (6) Abnormal urinalysis: UA showed WBC's, RBC's, bacteria. No urinary symptoms. No apparent calculi or other urinary tract abnormalities on CT abdomen and pelvis (without contrast). Urine culture negative so far. Consider prostatitis. (7) Hypothyroidism: TSH normal. Continue levothyroxine. (8) DVT prophylaxis: SQ heparin. Ambulate. (9) Discharge planning issues: Discharge disposition to be determined. May need skilled care or inpt rehab (although pt reluctant). Internal Medicine follow-up with Dr. Garcia. EP Cardiology follow-up with Dr. Villareal. Subjective Recheck for multiple problems. Patient seen in their room around 1900. Friend visiting. Worked with PT & OT today. Rehab recommended, but pt prefers DC to home. No chest pain or SOB. No palpitations or discharge of ICD. Urine not as dark. No dysuria. Review of Systems: Constitutional- no fever. Cardiac- as noted above. Pulmonary- no cough or SOB. GI- no nausea, vomiting, diarrhea, melena, hematochezia. - no urinary symptoms. Otherwise, as noted above. Physical Exam Constitutional: no acute distress Respiratory: no respiratory distress Auscultation: lungs clear to auscultation bilaterally Cardiovascular: Rate/Rhythm: regular rate and regular rhythm Heart Sounds: no gallop Vessels: no JVD Extremities: no calf tenderness and no edema venous insufficiency lower extremities Gastrointestinal (Abdomen): normal bowel sounds, soft, nontender, no hepatosplenomegaly Skin: no rashes, warm and dry Psychiatric: Orientation: alert and oriented x 3 Results & Data Vital Signs (Past 12 Hours) Vital Signs Temp Pulse Pulse Resp BP BP Pulse Ox 10/12/18 00:02 68 10/11/18 23:04 36.9 C 75 18 156/87 H 95 10/11/18 19:43 36.4 C L 80 22 158/82 H 96 10/11/18 15:42 36.6 C 73 18 155/90 H 97 Laboratory Results Laboratory Results - last 24 hr 10/11/18 05:20 Sodium 136 Potassium 4.0 Chloride 105 Carbon Dioxide 23 Anion Gap 8.0 BUN 29 H Creatinine 1.44 H Est Cr Clr Drug Dosing 60.0 Est GFR ( Amer) 53.9 Est GFR (Non-Af Amer) 46.5 BUN/Creatinine Ratio 20.1 H Glucose 100 H Calcium 8.7 (1) Fall at home Encounter type: initial encounter Qualified Code(s): W19.XXXA - Unspecified fall, initial encounter; Y92.009 - Unspecified place in unspecified non-in stitutional (private) residence as the place of occurrence of the external cause (2) Congestive heart failure Heart failure chronicity: acute on chronic Heart failure type: unspecified Qualified Code(s): I50.9 - Heart failure, unspecified
[2018-10-12] MEDS: LEVOTHYROXINE SODIUM 25 MCG TABLET PO SCH (05:44)
[2018-10-12 07:43] LABS: Hematocrit (blood only) 43.2 % (42-52); Hemoglobin 14.8 g/dL (14.0-18.0); Mean Corpuscular Hgb Conc 34.3 g/dL (32-36); Mean Corpuscular Volume 83.4 fL (80-100); Mean Platelet Volume 8.9 fL (7.4-10.4); Platelet Count 204 K/uL (130-400); RDW Coefficient of Variation 15.2 % (11.5-14.5); RDW Standard Deviation 46.7 fL (36.4-46.3); Red Blood Count 5.18 M/uL (4.7-6.1); White Blood Count 5.39 K/uL (4.8-10.8)
[2018-10-12] MEDS: LORATADINE 10 MG TAB PO SCH (07:43)
[2018-10-12] MEDS: AMIODARONE 200 MG TAB PO SCH (07:46)
[2018-10-12] MEDS: METOPROLOL SUCC 25MG EXT REL TAB PO SCH (07:47)
[2018-10-12] MEDS: ASPIRIN 325 MG ECTAB PO SCH ×2 (07:48→19:49)
[2018-10-12] MEDS: HEPARIN SOD 5,000 UNIT/0.5 ML VIAL SQ SCH ×2 (07:50→19:49)
[2018-10-12] MEDS: LISINOPRIL 5 MG TAB PO SCH (07:53)
[2018-10-12 08:01] LABS: BUN Creatinine Ratio 18.9 (10-20); Calcium 8.5 mg/dl (8.5-10.1); Creatinine Clr Calc Pharmacy 61.7 ml/min; Est GFR (African American) 55.8; Est GFR (Non-African American) 48.1; Potassium 4.3 mmol/L (3.5-5.1)
[2018-10-12 10:15] LABS: Appearance Urine Clear (Clear); Bacteria Urine Automated Negative (Negative); Bilirubin Urine Negative (Negative); Blood Urine 3+ (Negative); Color Urine Yellow; Glucose Urine UA Negative (Negative); Ketones Urine Negative (Negative); Leukocyte Esterase Urine 1+ (Negative); Nitrite Urine Negative (Negative); Protein Urine 1+ (Negative); Specific Gravity Urine 1.017 (1.000-1.030); Urobilinogen Urine Negative (Negative)
[2018-10-12] MEDS: cefTRIAXone SODIUM 2,000 MG in DEXTROSE 5% 50 ML IV SCH (18:09)
--- NOTE | 2018-10-12 18:25 | Hospitalist Progress Note ---
Date of Service October 12, 2018 Assessment & Plan (1) Acute kidney injury: Creatinine 1.51 day of admission, compared to baseline of around 1. Recently resumed diuretic therapy with furosemide. No apparent urinary tract obstruction on CT of abdomen / pelvis. Furosemide held. Creatinine today = 1.40. CHF compensated; continue to hold furosemide. Resume lisinopril, initially at 5 mg daily. Follow. (2) Fall at home: PT / OT evals. (3) Congestive heart failure: History of chronic left ventricular systolic heart failure with LVEF of 40% in 2016. Follow-up echo in 2017 showed improved LVEF. Idiopathic cardiomyopathy. Compensated. Continue metoprolol succinate. Furosemide and lisinopril on hold due to NIMCO. CHF compensated; continue to hold furosemide. Resuming lisinopril with caution. Follow. (4) History of ventricular tachycardia: S/P implantation ICD. On amiodarone 300 mg daily. No recent prolonged VT or discharges. Continue telemetry. (5) HTN (hypertension): Lisinopril held because of NIMCO. Continue metoprolol. Resuming lisinopril with caution. (6) Abnormal urinalysis: UA showed WBC's, RBC's, bacteria. No urinary symptoms. No apparent calculi or other urinary tract abnormalities on CT abdomen and pelvis (without contrast). Urine culture negative so far. Consider prostatitis. Patient indicates that urine is much clearer in appearance. Continue antibiotics. Urologic consultation may be warranted if hematuria and pyuria persists. (7) Hypothyroidism: TSH normal. Continue levothyroxine. (8) DVT prophylaxis: SQ heparin. Ambulate. (9) Discharge planning issues: Skilled care or inpatient rehab discussed, but patient reluctant. Probable discharge to home, with services if patient permits. Internal Medicine follow-up with Dr. Garcia. EP Cardiology follow-up with Dr. Villareal. Subjective Recheck for multiple problems. Patient seen in their room around 1450. Feeling better. No chest pain or SOB. No palpitations or discharge of ICD. Urine much clearer. No dysuria. Telemetry data reviewed. Normal sinus rhythm with PVCs, couplets, triplets, and occasional 4 beat runs of VT. Review of Systems: Constitutional- no fever. Cardiac- as noted above. Pulmonary- no cough or SOB. GI- no nausea, vomiting, diarrhea, melena, hematochezia. - as noted above. Otherwise, as noted above. Physical Exam Constitutional: no acute distress Respiratory: no respiratory distress Auscultation: lungs clear to auscultation bilaterally Cardiovascular: Rate/Rhythm: regular rate and regular rhythm Heart Sounds: no gallop Vessels: no JVD Extremities: no calf tenderness and no edema (venous insufficiency without significant edema) Gastrointestinal (Abdomen): Inspection/Auscultation: normal bowel sounds; abdomen not distended Percussion/Palpation: abdomen soft; abdomen nontender Skin: no rashes, warm and dry Psychiatric: Orientation: alert and oriented x 3 Results & Data Vital Signs (Past 12 Hours) Vital Signs Temp Pulse Resp BP Pulse Ox 10/12/18 15:05 36.5 C 79 16 165/84 H 95 10/12/18 11:22 36.6 C 71 16 130/78 95 10/12/18 07:21 36.4 C L 66 16 130/74 95 Laboratory Results Laboratory Results - last 24 hr 10/12/18 10/12/18 10/12/18 07:23 07:23 Unknown WBC 5.39 RBC 5.18 Hgb 14.8 Hct 43.2 MCV 83.4 MCH 28.6 MCHC 34.3 RDW Std Deviation 46.7 H RDW Coeff of Jesus 15.2 H Plt Count 204 MPV 8.9 Sodium 139 Potassium 4.3 Chloride 108 H Carbon Dioxide 24 Anion Gap 8.0 BUN 26 H Creatinine 1.40 Est Cr Clr Drug Dosing 61.7 Est GFR ( Amer) 55.8 Est GFR (Non-Af Amer) 48.1 BUN/Creatinine Ratio 18.9 Glucose 101 H Calcium 8.5 Urine Color Yellow Urine Appearance Clear Urine pH 5.0 Ur Specific [place] 1.017 Urine Protein 1+ H Urine Glucose (UA) Negative Urine Ketones Negative Urine Blood 3+ H Urine Nitrite Negative Urine Bilirubin Negative Urine Urobilinogen Negative Ur Leukocyte Esterase 1+ H Urine WBC (Auto) 10-30 H Urine RBC (Auto) 10-30 H U Hyaline Cast (Auto) 1-5 U Epithel Cells (Auto) 5-10 H Urine Bacteria (Auto) Negative (1) Fall at home Encounter type: initial encounter Qualified Code(s): W19.XXXA - Unspecified fall, initial encounter; Y92.009 - Unspecified place in unspecified non- institutional (private) residence as the place of occurrence of the external cause (2) Congestive heart failure Heart failure chronicity: acute on chronic Heart failure type: unspecified Qualified Code(s): I50.9 - Heart failure, unspecified
[2018-10-13 06:06] LABS: BUN Creatinine Ratio 20.1 (10-20); Calcium 7.9 mg/dl (8.5-10.1); Est GFR (African American) 58.3; Est GFR (Non-African American) 50.3; Potassium 4.1 mmol/L (3.5-5.1)
[2018-10-13] MEDS: LEVOTHYROXINE SODIUM 25 MCG TABLET PO SCH (06:32)
[2018-10-13] MEDS: LISINOPRIL 5 MG TAB PO SCH (08:47)
[2018-10-13] MEDS: AMIODARONE 200 MG TAB PO SCH (08:47)
[2018-10-13] MEDS: ASPIRIN 325 MG ECTAB PO SCH (08:47)
[2018-10-13] MEDS: METOPROLOL SUCC 25MG EXT REL TAB PO SCH (08:47)
[2018-10-13] MEDS: LORATADINE 10 MG TAB PO SCH (08:48)
[2018-10-13] MEDS: HEPARIN SOD 5,000 UNIT/0.5 ML VIAL SQ SCH (08:49)
--- NOTE | 2018-10-13 14:29 | Hospitalist Progress Note ---
Date of Service October 13, 2018 Assessment & Plan (1) Acute kidney injury: Creatinine 1.51 day of admission, compared to baseline of around 1. Recently resumed diuretic therapy with furosemide. No apparent urinary tract obstruction on CT of abdomen / pelvis. Furosemide held with improvement. Lisinopril held, then resumed. Creatinine today = 1.35. CHF compensated; discharge on furosemide 20 mg daily PRN for significant edema, SOB, weight gain > 3 lbs. (2) Fall at home: PT / OT evals obtained. Skilled care or inpt rehab recommended, but patient prefers to be discharged to home. (3) Congestive heart failure: History of chronic left ventricular systolic heart failure with LVEF of 40% in 2016. Follow-up echo in 2017 showed improved LVEF. Echo 10/10/18 showed normal LV wall motion and systolic function, LVEF 55-60%. Idiopathic cardiomyopathy, compensated. Continue metoprolol succinate. Furosemide and lisinopril initially held due to NIMCO. Resumed lisinopril once renal function improved. CHF remained compensated. Discharged on furosemide 20 mg daily PRN for significant edema, SOB, weight gain > 3 lbs. Follow. (4) History of ventricular tachycardia: S/P implantation ICD, takes amiodarone 300. Had PVC's and salvos up to 4 beats, but no prolonged VT or AID discharges. Continue amiodarone 300 mg daily. (5) HTN (hypertension): Discharged on metoprolol and lisinopril. (6) Abnormal urinalysis: UA showed WBC's, RBC's, bacteria. Patient noted dark urine, but no dysuria, hesitancy, frequency. No apparent calculi or other urinary tract abnormalities on CT abdomen and pelvis (without contrast). Urine culture negative. No fever or leukocytosis. Consider prostatitis. Quinolones avoided because of history of arrhythmias and amiodarone therapy. TMP/sulfa avoided because of renal insufficiency. Received a few days of ceftriaxone and was discharged on cefuroxime 500 mg twice daily to complete 3-week course of therapy. Repeat urinalysis should be checked in clinic. Urologic consultation may be warranted if hematuria and pyuria persist. (7) Hypothyroidism: TSH normal. Continue levothyroxine. (8) DVT prophylaxis: SQ heparin. Ambulating. (9) Discharge planning issues: Skilled care or inpatient rehab discussed, but patient declined. He prefers discharge to home without home health services. Internal Medicine follow-up with Dr. Garcia. EP Cardiology follow-up with Dr. Villareal. Subjective Doing well. No chest pain or SOB. Ambulating with walker without difficulty. Urine clear. No dysuria or difficulty voiding. Would be very happy to be discharged. Not interested in skilled care, inpatient rehab, or home health services. Physical Exam Constitutional: no acute distress Respiratory: no respiratory distress Auscultation: lungs clear to auscultation bilaterally Cardiovascular: Rate/Rhythm: regular rate and regular rhythm Heart Sounds: no gallop Vessels: no JVD Extremities: no calf tenderness and no edema (venous insufficiency without significant edema) Gastrointestinal (Abdomen): normal bowel sounds, soft, nontender, no hepatosplenomegaly Inspection/Auscultation: normal bowel sounds; abdomen not distended Percussion/Palpation: abdomen soft; abdomen nontender Skin: no rashes, warm and dry Psychiatric: Orientation: alert and oriented x 3 Results & Data Vital Signs (Past 12 Hours) Vital Signs Temp Pulse Resp BP BP Pulse Ox 10/13/18 11:43 36.8 C 71 16 117/75 95 10/13/18 07:12 36.8 C 65 16 117/65 92 10/13/18 04:28 36.6 C 64 18 144/74 H 97 (1) Fall at home Encounter type: initial encounter Qualified Code(s): W19.XXXA - Unspecified fall, initial encounter; Y92.009 - Unspecified place in unspecified non- institutional (private) residence as the place of occurrence of the external cause (2) Congestive heart failure Heart failure chronicity: acute on chronic Heart failure type: unspecified Qualified Code(s): I50.9 - Heart failure, unspecified
--- NOTE | 2018-10-14 15:36 | Discharge Summary ---
Date of Service Date of Admission: 10/09/18 Date of Discharge: 10/13/18 Admission HPI Per Admitting Provider Patient is a 78-year-old male with history of Idiopathic cardiomyopathy, ventricular tachycardia S/P ICD, hypothyroidism, hypertension, hyperlipidemia, hearing impairment, sleep apnea, anxiety disorder and other problems presents with history of worsening generalized weakness, balance issues with ambulation, decreased appetite, multiple falls lately. Patient states that he noticed having" shakiness"' on Sunday which prompted him to ED 2 days ago. During his ER visit 2 days ago, he was thought to be in mild CHF and his Lasix was increased from 20 mg to 40 mg daily and was asked to continue with the dose, follow up with his PCP and was discharged home. Patient felt better after the increased dose of Lasix but this morning patient fell backwards onto his bed, which he states is secondary to lumpy mattress. He states that his ambulation has been difficult secondary to balance issues and currently has been using a cane. He was evaluated by his poultry hatchery man recently who recommended to decrease the dose of amiodarone to 200 mg daily but patient was reluctant secondary to history of multiple ICD shocks in the past. He states having very poor appetite since many months. 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 He has difficulty chewing food as a result. Denies any history of chest pain, SOB, palpitations, dizziness, cough, wheezing, fever, chills, head trauma, LOC, headache, nausea, vomiting, abdominal pain, diarrhea, dysuria, hematuria. He states that he is due for echo to be done tomorrow. Admission Exam Per Admitting Provider Vitals signs as noted above General Appearance:Moderately built and nourished, no apparent distress Head: normocephalic, Atraumatic, +Hearing aids Eyes: normal inspection, EOMI Neck: supple, Trachea midline Respiratory/Chest: Normal breath sounds, CTA Cardiovascular: S1, S2, No murmur Chest: Pacemaker on Left side of chest Abdomen/GI:Soft, Non tender, Bowel sounds present Extremities/Musculoskelatal:normal inspection, 1+ B/L LE edema Neurologic/Psych:AAOX3, grossly no focal neurological deficits Skin: normal color, warm Principal Diagnosis acute kidney injury dehydration fall, ambulatory dysfunction abnormal urinalysis cardiomyopathy history of ventricular tachycardia Discharge Data Allergies Allergy/AdvReac Type Severity Reaction Status Date / Time ciprofloxacin [From Cipro] Allergy Unknown Unverified 10/06/18 12:08 allantoin [From Orajel] AdvReac Unknown Unverified 10/06/18 12:08 benzalkonium chloride AdvReac Unknown Unverified 10/06/18 12:08 [From Orajel] benzocaine [From Orajel] AdvReac Unknown Unverified 10/06/18 12:08 carbamide peroxide AdvReac Unknown Unverified 10/06/18 12:08 [From Orajel] zinc chloride [From Orajel] AdvReac Unknown Unverified 10/06/18 12:08 Consultations 10/09/18 14:29 ED Decision to Admit Stat 10/09/18 18:41 Consult Case Management - Discharge Planning Routine Ordered Studies 10/09/18 12:27 CT abd pelvis wo con Stat CT head/brain wo con Stat CT lumbar spine wo con Stat Hospital Course (1) Acute kidney injury: Creatinine 1.51 day of admission, compared to baseline of around 1. Recently resumed diuretic therapy with furosemide. No apparent urinary tract obstruction on CT of abdomen / pelvis. Furosemide held with improvement. Lisinopril held, then resumed. Creatinine day of discharge was 1.35. CHF compensated; discharge on furosemide 20 mg daily PRN for significant edema, SOB, weight gain > 3 lbs. (2) Fall at home: PT / OT evals obtained. Multifactorial ambulatory dysfunction, exacerbated by dehydration and possible UTI. Skilled care or inpt rehab recommended, but patient preferred to be discharged to home. (3) Congestive heart failure: History of chronic left ventricular systolic heart failure with LVEF of 40% in 2016. Follow-up echo in 2017 showed improved LVEF. Echo 10/10/18 showed normal LV wall motion and systolic function, LVEF 55-60%. Idiopathic cardiomyopathy, compensated. Continue metoprolol succinate. Furosemide and lisinopril initially held due to NIMCO. Resumed lisinopril once renal function improved. CHF remained compensated. Discharged on furosemide 20 mg daily PRN for significant edema, SOB, weight gain > 3 lbs. Follow. (4) History of ventricular tachycardia: S/P implantation ICD, takes amiodarone 300. Had PVC's and salvos up to 4 beats, but no prolonged VT or AID discharges. Continue amiodarone 300 mg daily. (5) HTN (hypertension): Discharged on metoprolol and lisinopril. (6) Abnormal urinalysis: UA showed WBC's, RBC's, bacteria. Patient noted dark urine, but no dysuria, hesitancy, frequency. No apparent calculi or other urinary tract abnormalities on CT abdomen and pelvis (without contrast). Urine culture negative. No fever or leukocytosis. Consider prostatitis. Quinolones avoided because of history of arrhythmias and amiodarone therapy. TMP/sulfa avoided because of renal insufficiency. Received a few days of ceftriaxone and was discharged on cefuroxime 500 mg twice daily to complete 3-week course of therapy. Repeat urinalysis should be checked in clinic. Urologic consultation may be warranted if hematuria and pyuria persist. (7) Hypothyroidism: TSH normal. Continue levothyroxine. (8) DVT prophylaxis: SQ heparin. Ambulating. (9) Discharge planning issues: Skilled care or inpatient rehab discussed, but patient declined. He prefers discharge to home without home health services. Internal Medicine follow-up with Dr. Garcia. EP Cardiology follow-up with Dr. Villareal. Total Time Total Time Spent Total Time Spent (In Minutes): 40 Discharge Plan Discharge Items Patient Disposition: Home - Self-Care Reason For Visit: weakness, recent falls Discharge Diagnosis: dehydration worsening kidney function suspected urinary tract infection Condition: Good Discharge Goals: Improve disease control and Improve function Activity: As commented below Activity Comment: activity as tolerated with extreme care Non-emergency contact: Primary Care Provider, Hospitalist and Instrument And Electrical Technician Call non-emergency contact if: you have any medication questions, your symptoms worsen and you have a fever Follow-up/Referrals: Ed Garcia DO [Primary Care Provider] - (11/07/2018 1:40 PM Ed Garcia DO Office will contact you if there are any earlier openings with Dr. Garcia.) Diet: Heart Healthy [facility] Provider Instructions: You have an appointment to see Dr. Garcia on 11/07/18 at 1:40. Office will contact you if he can see you sooner. I will send a prescription for an antibiotic [facility]. Please ask Dr. Garcia to check urine specimen and basic metabolic profile. Take furosemide (Lasix) 20 mg daily only as needed if: you have bad swelling of your feet you have trouble breathing you gain more than 3 pounds above baseline weight. OTHER INSTRUCTIONS: Seek medical attention if you have: * temperature above 101 * chest pain or trouble breathing * abdominal pain, nausea, vomiting * diarrhea, dark stools or bloody stools * any unanswered questions or concerns Call 911 if symptoms are severe. Please take good care of yourself. Call if you have any questions or problems. My cell # is [phone]. You can also reach a [facility] hospitalist on duty at [facility] 24 hours a day by calling [phone]. Prescriptions: New cefuroxime axetil 500 mg tablet 500 mg PO BID 16 Days Qty: 32 RF: 0 Continued levothyroxine 25 mcg tablet 25 mcg PO DAILY RF: 0 potassium chloride 20 mEq tablet extended release 20 meq PO DAILY Qty: 5 RF: 0 lorazepam 1 mg Tablet 1 mg PO Q8H PRN (Reason: Anxiety) RF: 0 polyethylene glycol 3350 [Miralax] 17 gram Powder In Packet 17 g PO DAILY PRN (Reason: Constipation) RF: 0 aspirin 325 mg Tablet 325 mg PO UD RF: 0 amiodarone 200 mg Tablet 300 mg PO DAILY RF: 0 lisinopril 20 mg Tablet 20 mg PO DAILY RF: 0 metoprolol succinate [Toprol XL] 25 mg Tablet Extended Release 24 Hr 25 mg PO DAILY RF: 0 magnesium 200 mg Tablet 100 mg PO BID RF: 0 loratadine 10 mg Tablet 10 mg PO DAILY RF: 0 Changed furosemide 20 mg tablet 20 mg PO DAILY PRN (Reason: as instructed) Qty: 0 RF: 0 Stand-Alone Forms: My [facility] Discharge Orders: Discharge Order (Routine); Ordered 10/13/18 Ordered By: Domo Sotomayor Admission Data Admit Date/Time: 10/09/18 16:16 Attending Provider: Domo Sotomayor Admit Provider: Syed Clark Primary Care Provider: Ed Garcia Other Providers: Syed Clark Service: Telemetry Medical Other Interventions: Discharge Summary Assessment (RN) Last Done: 10/13/18 14:51 DC Date/Time DO NOT enter until pt leaves facility: 10/13/18 15:37
== END 2018-10-13 15:37 | disposition home or self-care (01) | DRG 683 ==
LOC: ED 11:29 → 2N 16:16